=== PATIENT | female | born 1945 | race Caucasian/White ===

== ENCOUNTER 2016-08-14 12:14 | Inpatient (IN) | payer MEDICARE ==
[~2016-08-14] VITALS: Ht 160 cm; Wt 94.8 kg
[~2016-08-14 12:14] MED LIST: AMIT25TA PO; AMLO10TA4 PO; AMOX50TA PO; ATOR40TA PO; BUSP15TA PO; CARB1TAB2 PO; CARV12.5 PO; CHOL10003 PO; CLOP75TA PO; CYCL10TA2 PO; DOCU-27 PO; DOCU100C5 PO; DULO60CA6 PO; ESOM40CA PO; ESTR1TAB15 PO; FERR142T13 PO; FOLI1TAB16 PO; GLIM2TAB2 PO; GLYC1TAB PO; LEVE100020 PO; LEVO125T5 PO; LEVO150T5 PO; LIDO700A4 TP; LINA5TAB PO; LORA0.5T PO; LUBI24CA5 PO; MAGN400T3 PO; MELA3TAB PO; METF500T4 PO; MIRA50TA PO; MIRT30TA3 PO; NEBI5TAB2 PO; OMEG500C3 PO; OXYC10TA PO; OXYC20TA34 PO; PRIM50TA PO; TRAM50TA PO; VITA100C4 PO; ZOLP5TAB5 PO; [UNRECOGNIZED DRUG - CODE] PO
--- NOTE | 2016-08-14 12:44 | RAD ---
CT scan of the head without contrast 08/14/2016 Clinical History: Confusion with words finding difficulty. Code stroke. Technique: Unenhanced, contiguous, 5 mm axial sections were obtained through the head. One or more of the following individualized dose reduction techniques were utilized for this study: 1. Automated exposure control. 2. Adjustment of the mA and/or kV according to patient size. 3. Use of iterative reconstruction technique. Findings: Comparison study is dated 04/11/2016. There is generalized parenchymal atrophy. Small scattered areas of decreased attenuation are seen within the periventricular and subcortical white matter of both cerebral hemispheres consistent with areas of small vessel ischemic disease. No acute parenchymal abnormality is seen. No extra-axial fluid collection is noted. Impression: No acute intracranial abnormality is seen. This result was called to the emergency department at 1240 hours.
[2016-08-14 13:08] LABS: BASO % 0 % (0-3); EOS # 0.1 x10^3/uL (0.0-0.7); EOS % 2 % (0-3); HEMATOCRIT 35.1 % (36.0-47.0); HEMOGLOBIN 11.5 g/dL (12.0-15.5); LYMPH # 1.7 x10^3/uL (1.0-4.8); LYMPH % 29 % (24-48); MEAN CORPUSCULAR HEMOGLOBIN 32 pg (25-35); MEAN CORPUSCULAR HGB CONC 33 g/dL (31-37); MEAN CORPUSCULAR VOLUME 97 fL (79-100); MONO # 0.4 x10^3/uL (0.0-1.1); MONO % 6 % (0-9); NEUT # 3.8 x10^3uL (1.8-7.7); NEUT % 63 % (31-73); PLATELET COUNT 293 x10^3/uL (140-400); RED BLOOD COUNT 3.63 x10^6/uL (3.50-5.40); RED CELL DISTRIBUTION WIDTH 14.1 % (11.5-14.5)
[2016-08-14 13:27] LABS: CALCIUM 8.4 mg/dL (8.5-10.1); CREATININE 1.1 mg/dL (0.6-1.0); GFR 49.1; POTASSIUM 4.9 mmol/L (3.5-5.1)
--- NOTE | 2016-08-14 13:31 | RAD ---
Portable chest, 08/14/2016: History: Confusion, CVA symptoms Comparison is made to a study from 05/06/2015. A right-sided transvenous pacemaker is now in place with 2 leads extending in the right heart. The left ventricle is mildly prominent. The pulmonary vascularity is normal. No pulmonary infiltrates are seen. There is no evidence of pleural fluid. IMPRESSION: 1. A transvenous pacemaker is in place. 2. No acute cardiopulmonary abnormality is detected.
[2016-08-14] MEDS: IV NORMAL SALINE 1,000ML 1,000 ML IV SCH (13:44)
[2016-08-14] MEDS ORDERED: ONDANSETRON PF 4 MG/2 ML VIAL. IV PRN ×2 (13:45→17:30)
[2016-08-14] MEDS ORDERED: methylPREDNISolone SOD SUCC PF 125 MG/2 ML VIAL. IV ONE (14:15)
[2016-08-14] MEDS: IPRATRPIUM/ALBUTEROL 0.5/2.5MG 3 ML NEBU. NEB SCH ×2 (15:31→19:38)
--- NOTE | 2016-08-14 16:08 | ED.ADGEN ---
Past History Past Medical History: CAD, Diabetes, Hypertension, Hypothyroid, [place], Other Past Surgical History: Knee Replacement, Tonsillectomy Alcohol Use: None Drug Use: None Adult General HPI HPI Patient is a 71-year-old female brought to emergency department by her daughter after she noticed that her mother was slurring her words approximately 2 hours ago. Her last known normal was last night. Patient has had a history of CVA and heart attacks in the past. She also has a history of COPD. Daughter is concerned that her CO2 may be elevated due to the fact that her mom is been sleeping a significant amount over the last several days. Initially, the daughter thought that it may just be depression and morning related to the recent passing of her father. The patient herself does not really have any complaints other than his state that she is "sleepy" she denies any headache or chest pain. Review of Systems Review of Systems Constitutional: Denies fever or chills [] Eyes: Denies change in visual acuity, redness, or eye pain [] HENT: Denies nasal congestion or sore throat [] Respiratory: Denies cough or shortness of breath [] Cardiovascular: No additional information not addressed in HPI [] GI: Denies abdominal pain, nausea, vomiting, bloody stools or diarrhea [] : Denies dysuria or hematuria [] Musculoskeletal: Denies back pain or joint pain [] Integument: Denies rash or skin lesions [] Neurologic: Denies headache, focal weakness or sensory changes [] Endocrine: Denies polyuria or polydipsia [] Current Medications Current Medications Current Medications Medications (Trade) Dose Ordered Sig/Harmeet Start Time Stop Time Status Last Admin Dose Admin Methylprednisolone Sodium Succinate (Solu-Medrol 125mg Vial) 125 mg 1X ONCE 08/14/16 14:15 08/14/16 14:16 DC 08/14/16 14:12 125 MG Ondansetron HCl 4 mg 4 mg PRN Q4HRS PRN 08/14/16 13:45 08/15/16 13:44 Sodium Chloride (Iv Sodium Chloride 0.9% 1,000ml) 1,000 ml @ 100 mls/hr Q10H 08/14/16 13:44 08/15/16 13:43 08/14/16 13:44 100 MLS/HR Allergies Allergies Allergies Coded Allergies Type Severity Reaction Last Updated Verified Sulfa (Sulfonamide Antibiotics) Allergy Intermediate Unknown 10/28/14 Yes dexamethasone Allergy Intermediate eye irritaion and swelling 05/06/15 Yes neomycin Allergy Intermediate eye irritaion and swelling 05/06/15 Yes polymyxin B Allergy Intermediate eye irritaion and swelling 05/06/15 Yes Physical Exam Physical Exam Constitutional: Well developed, well nourished, no acute distress, non-toxic appearance. [] HENT: Normocephalic, atraumatic, bilateral external ears normal, oropharynx moist, no oral exudates, nose normal. [] Eyes: PERRLA, EOMI, conjunctiva normal, no discharge. [] Neck: Normal range of motion, no tenderness, supple, no stridor. [] Cardiovascular:Heart rate regular rhythm, no murmur [] Lungs & Thorax: Bilateral breath sounds clear to auscultation [] Abdomen: Bowel sounds normal, soft, no tenderness, no masses, no pulsatile masses. [] Skin: Warm, dry, no erythema, no rash. [] Back: No tenderness, no CVA tenderness. [] Extremities: No tenderness, no cyanosis, no clubbing, ROM intact, no edema. [] Neurologic: Alert and oriented X 3, normal motor function, normal sensory function, no focal deficits noted. [] Psychologic: Affect normal, judgement normal, mood normal. [] Current Patient Data Lab Results Laboratory Tests Test 08/14/16 12:51 08/14/16 13:11 White Blood Count 6.0x10^3/uL (4.0-11.0) Red Blood Count 3.63x10^6/uL (3.50-5.40) Hemoglobin 11.5g/dL (12.0-15.5) L Hematocrit 35.1% (36.0-47.0) L Mean Corpuscular Volume 97fL (79-100) Mean Corpuscular Hemoglobin 32pg (25-35) Mean Corpuscular Hemoglobin Concent 33g/dL (31-37) Red Cell Distribution Width 14.1% (11.5-14.5) Platelet Count 293x10^3/uL (140-400) Neutrophils (%) (Auto) 63% (31-73) Lymphocytes (%) (Auto) 29% (24-48) Monocytes (%) (Auto) 6% (0-9) Eosinophils (%) (Auto) 2% (0-3) Basophils (%) (Auto) 0% (0-3) Neutrophils # (Auto) 3.8x10^3uL (1.8-7.7) Lymphocytes # (Auto) 1.7x10^3/uL (1.0-4.8) Monocytes # (Auto) 0.4x10^3/uL (0.0-1.1) Eosinophils # (Auto) 0.1x10^3/uL (0.0-0.7) Basophils # (Auto) 0.0x10^3/uL (0.0-0.2) Prothrombin Time 9.3SEC (9.4-11.4) L Prothrombin Time INR 0.9 (0.9-1.1) PTT 24SEC (23-33) Sodium Level 139mmol/L (136-145) Potassium Level 4.9mmol/L (3.5-5.1) Chloride Level 103mmol/L (98-107) Carbon Dioxide Level 29mmol/L (21-32) Anion Gap 7 (6-14) Blood Urea Nitrogen 16mg/dL (7-20) Creatinine 1.1mg/dL (0.6-1.0) H Estimated GFR (Cockcroft-Gault) 49.1 Glucose Level 138mg/dL (70-99) H Calcium Level 8.4mg/dL (8.5-10.1) L Aspartate Amino Transferase (AST) 5U/L (15-37) L Alanine Aminotransferase (ALT) 16U/L (14-59) Alkaline Phosphatase 152U/L (46-116) H Troponin I Quantitative < 0.017ng/mL (0-0.055) SX-Bib-W-Type Natriuretic Peptide 223pg/mL (0-124) H POC Arterial pH 7.30 (7.35-7.45) L POC Arterial pCO2 51mmHg (35-45) H POC Arterial pO2 71mmHg (75-100) L Arterial Blood HCO3 25mmol/L (21-28) POC Arterial Blood O2 Sat 92% (95-99) L POC FiO2 21.0 EKG EKG EKG interpreted by me, normal sinus rhythm, 76 bpm, leftward axis, no ST segment elevation. [] Radiology/Procedures Radiology/Procedures CT scan of the head without contrast 08/14/2016 Clinical History: Confusion with words finding difficulty. Code stroke. Technique: Unenhanced, contiguous, 5 mm axial sections were obtained through the head. One or more of the following individualized dose reduction techniques were utilized for this study: 1. Automated exposure control. 2. Adjustment of the mA and/or kV according to patient size. 3. Use of iterative reconstruction technique. Findings: Comparison study is dated 04/11/2016. There is generalized parenchymal atrophy. Small scattered areas of decreased attenuation are seen within the periventricular and subcortical white matter of both cerebral hemispheres consistent with areas of small vessel ischemic disease. No acute parenchymal abnormality is seen. No extra-axial fluid collection is noted. Impression: No acute intracranial abnormality is seen. This result was called to the emergency department at 1240 hours. DICTATED AND SIGNED BY: GALE MAXWELL MD DATE: 08/14/16 1237 CC: SHYANNE CABRERA MD; DUY WISE MD ~[Portable chest, 08/14/2016: History: Confusion, CVA symptoms Comparison is made to a study from 05/06/2015. A right-sided transvenous pacemaker is now in place with 2 leads extending in the right heart. The left ventricle is mildly prominent. The pulmonary vascularity is normal. No pulmonary infiltrates are seen. There is no evidence of pleural fluid. IMPRESSION: 1. A transvenous pacemaker is in place. 2. No acute cardiopulmonary abnormality is detected. DICTATED AND SIGNED BY: KEILA HERNANDEZ MD DATE: 08/14/16 1328 CC: SHYANNE CABRERA MD; DUY WISE MD ~] Course & Med Decision Making Course & Med Decision Making Pertinent Labs and Imaging studies reviewed. (See chart for details) Patient did seem quite somnolent initially upon arrival. I did not notice any focal or lateralizing neural deficits. Her blood gas does indicate some acute CO retention. Consequent I, I did place her on BiPAP and this did seem to help with her ventilation as well as her mental status. We did also give her Solu- Medrol in order her regular pulmonary hygiene when she is admitted to the ICU. [] Final Impression Final Impression COPD exacerbation, mental status change. [] Problems: Dragon Disclaimer Dragon Disclaimer This electronic medical record was generated, in whole or in part, using a voice recognition dictation system. SHYANNE CABRERA MD Aug 14, 2016 16:08
[2016-08-14 16:09] VITALS: BP 136/69
[2016-08-14] MEDS ORDERED: ASPI81TA2 PO (17:12)
[2016-08-14] MEDS ORDERED: MIRA50TA PO (17:13)
[2016-08-14] MEDS ORDERED: DULO60CA6 PO (17:20)
[2016-08-14] MEDS ORDERED: DILT180C90 PO (17:21)
[2016-08-14] MEDS ORDERED: ZOLP5TAB5 PO (17:22)
[2016-08-14] MEDS ORDERED: DONE10TA34 PO (17:23)
[2016-08-14] MEDS ORDERED: ACETAMINOPHEN 325 MG TABLET PO PRN (17:30)
--- NOTE | 2016-08-14 18:01 | ACF ---
Admission Criteria Forms COPD Clinical Indications for Admission to Inpatient Care (Place 'X' for any and all applicable criteria): Admission is indicated for ANY ONE of the following (1)(2)(3): [ ]I. Acute exacerbation by high-risk comorbidity (e.g., pneumonia, dysrhythmia, heart failure, pleural effusion, pneumothorax) or severe underlying COPD (e.g., steroid dependent) [X]II. Inpatient admission required rather than observation care (see Chronic Obstructive Pulmonary Disease: Observation Care) because of ANY ONE of the following: [ ]a) New or pre-existing signs or symptoms of COPD (eg, dyspnea or Tachypnea at rest or with minimal activity) that persist despite outpatient and observation care treatment [ ]b) New-onset hypoxemia (room air SaO2 less than 90%, PO2 less than 60 mm Hg (8.0 kPa)) that persists despite outpatient and observation care treatment [ ]c) Worsening of pre-existing hypoxemia (eg, new or increased requirement for supplemental oxygen to maintain oxygenation at baseline level) that persists despite outpatient and observation care treatment, with oxygen treatment needs performable only in acute inpatient setting [X]d) Hypercarbia (PCO2 greater than 40 mm Hg (5.3 kPa))-induced respiratory acidosis (pH less than 7.35) that persists despite outpatient and observation care treatment [ ]e) Supplemental oxygen or respiratory treatments for over 24 hours that are performable only in acute inpatient setting [ ]f) Chest tube placement with active evacuation (e.g., suction, drainage) (5) [ ]g) Other condition, treatment or monitoring requiring inpatient admission [ ]III. Planned invasive surgical or diagnostic procedures requiring acute- care hospitalization [ ]IV. Acute respiratory failure (e.g., uncompensated hypercarbia, severe hypoxemia) [ ]V. Severe comorbid condition (e.g., severe steroid myopathy, acute vertebral fracture) that has acutely worsened pulmonary function [ ]. Confusion state, lethargy, obtundation, stupor or coma Extended stay beyond goal length of stay may be needed for (31)(32): [ ]a ) Respiratory Failure. [ ]b) Severe or persisting hypoxemia or hypercarbia [ ]c) Severe or persistent dyspnea [ ]d) Comorbidities (e.g. chronic heart failure, atrial fibrillation with rapid response, pneumonia) [ ]e) Malnutrition The original [facility] content created by [facility] has been revised. The portions of the content which have been revised are identified through the use of italic text or in bold, and [facility] has neither reviewed nor approved the modified material. All other unmodified content is copyright [facility]. Please see references footnoted in the original [facility] edition 2016 Admission Criteria Met?: Yes NILSA MCNEIL Aug 14, 2016 18:01
[2016-08-14 18:09] VITALS: BP 96/56
[2016-08-14 19:35] VITALS: BP 118/56
[2016-08-14 20:35] VITALS: BP 140/56
[2016-08-14] MEDS: LEVETIRACETAM 500 MG TABLET PO SCH (20:54)
[2016-08-14] MEDS: LORAZEPAM 0.5 MG TABLET PO SCH (20:54)
[2016-08-14] MEDS: OXYCODONE 20 MG PO SCH (20:54)
[2016-08-14] MEDS: MAGNESIUM OXIDE 400 MG TABLET PO SCH (20:55)
[2016-08-14] MEDS: busPIRone 15 MG TABLET. PO SCH (20:56)
[2016-08-14] MEDS: PRIMIDONE 50 MG TABLET PO SCH (20:56)
[2016-08-14] MEDS: CARBIDOPA/LEVODOPA 25/100MG TABLET PO SCH (20:56)
[2016-08-14] MEDS: methylPREDNISolone SOD SUCC PF 125 MG/2 ML VIAL. IV SCH (20:57)
[2016-08-14] MEDS ORDERED: MELATONIN 3 MG TABLET PO SCH (21:00)
[2016-08-14] MEDS ORDERED: MIRTAZAPINE 30 MG TABLET PO SCH (21:00)
[2016-08-14] MEDS ORDERED: ZOLPIDEM 5 MG TABLET. PO SCH (21:00)
[2016-08-14] MEDS ORDERED: CLOPIDOGREL BISULFATE 75 MG TABLET PO SCH (21:00)
[2016-08-14] MEDS ORDERED: AMOXAPINE PO SCH (21:00)
[2016-08-14] MEDS ORDERED: CYCLOBENZAPRINE 10 MG TABLET. PO SCH (21:00)
[2016-08-14 21:35] VITALS: BP 124/47
[2016-08-14 22:35] VITALS: BP 136/49
[2016-08-14 23:57] LABS: BILIRUBIN,URINE NEG (NEG); CLARITY,URINE CLEAR; COLOR,URINE YELLOW; GLUCOSE,URINE 100 mg/dL (NEG)
[2016-08-14 23:58] LABS: BACTERIA,URINE 0 /HPF (0-FEW); NITRITE,URINE NEG (NEG); RBC,URINE 0 /HPF (0-2); SQUAMOUS EPITHELIAL CELL,UR FEW /LPF; UROBILINOGEN,URINE 0.2 mg/dL (0.2 mg/dL); WBC,URINE OCC /HPF (0-4)
[2016-08-15 00:35] VITALS: BP 132/63
[2016-08-15 00:53] LABS: BGAS PH 7.35 (7.35-7.45)
[2016-08-15 02:39] VITALS: BP 149/64
[2016-08-15] MEDS: IV NORMAL SALINE 1,000ML 1,000 ML IV SCH ×2 (03:14→09:44)
[2016-08-15 04:35] VITALS: BP 140/60
[2016-08-15] MEDS: IPRATRPIUM/ALBUTEROL 0.5/2.5MG 3 ML NEBU. NEB SCH ×2 (05:10→09:31)
[2016-08-15 05:35] VITALS: BP 102/57
[2016-08-15 06:03] LABS: BASO % 0 % (0-3); EOS % 0 % (0-3); HEMOGLOBIN 12.3 g/dL (12.0-15.5); LYMPH # 0.8 x10^3/uL (1.0-4.8); LYMPH % 15 % (24-48); MEAN CORPUSCULAR HEMOGLOBIN 31 pg (25-35); MEAN CORPUSCULAR HGB CONC 32 g/dL (31-37); MEAN CORPUSCULAR VOLUME 97 fL (79-100); MONO # 0.1 x10^3/uL (0.0-1.1); MONO % 1 % (0-9); NEUT # 4.6 x10^3uL (1.8-7.7); NEUT % 84 % (31-73); PLATELET COUNT 280 x10^3/uL (140-400); RED BLOOD COUNT 3.92 x10^6/uL (3.50-5.40); RED CELL DISTRIBUTION WIDTH 13.8 % (11.5-14.5); WHITE BLOOD COUNT 5.5 x10^3/uL (4.0-11.0)
[2016-08-15 06:15] LABS: ALBUMIN 3.2 g/dL (3.4-5.0); ALBUMIN/GLOBULIN RATIO 0.8 (1.0-1.7); CALCIUM 8.7 mg/dL (8.5-10.1); GFR 54.8; POTASSIUM 4.7 mmol/L (3.5-5.1); TOTAL BILIRUBIN 0.2 mg/dL (0.2-1.0); TOTAL PROTEIN 7.3 g/dL (6.4-8.2)
[2016-08-15] MEDS ORDERED: LEVOTHYROXINE 150 MCG TABLET PO SCH (07:00)
[2016-08-15 07:30] VITALS: BP 168/75
[2016-08-15] MEDS ORDERED: PANTOPRAZOLE 40 MG TABLET. PO SCH (07:30)
[2016-08-15] MEDS ORDERED: METFORMIN 500 MG TABLET. PO SCH (08:00)
[2016-08-15] MEDS ORDERED: FERROUS SULFATE 325 MG TABLET PO SCH (08:00)
[2016-08-15] MEDS: methylPREDNISolone SOD SUCC PF 125 MG/2 ML VIAL. IV SCH (08:13)
[2016-08-15] MEDS: LEVETIRACETAM 500 MG TABLET PO SCH (08:14)
[2016-08-15] MEDS: CARBIDOPA/LEVODOPA 25/100MG TABLET PO SCH ×2 (08:14→12:50)
[2016-08-15] MEDS: PRIMIDONE 50 MG TABLET PO SCH ×2 (08:15→12:51)
[2016-08-15] MEDS: MAGNESIUM OXIDE 400 MG TABLET PO SCH (08:15)
[2016-08-15] MEDS: busPIRone 15 MG TABLET. PO SCH (08:15)
[2016-08-15] MEDS: OXYCODONE 20 MG PO SCH ×2 (08:15→12:51)
[2016-08-15] MEDS: LORAZEPAM 0.5 MG TABLET PO SCH (08:17)
[2016-08-15] MEDS ORDERED: LIDOCAINE (700MG/PATCH) PATCH. TP SCH (09:00)
[2016-08-15] MEDS ORDERED: ASPIRIN 81 MG TAB.CHEW PO SCH (09:00)
[2016-08-15] MEDS ORDERED: CARVEDILOL 12.5 MG TABLET PO SCH (09:00)
[2016-08-15] MEDS ORDERED: DULOXETINE HCL 60 MG CAPSULE.DR. PO SCH (09:00)
[2016-08-15] MEDS ORDERED: DILTIAZEM HCL 180 MG CAP.ER.24H PO SCH (09:00)
[2016-08-15] MEDS ORDERED: MIRABEGRON 25 MG TAB.ER.24H PO SCH (09:00)
[2016-08-15] MEDS ORDERED: CYCLOBENZAPRINE 10 MG TABLET. PO SCH (09:00)
[2016-08-15] MEDS ORDERED: DONEPEZIL HCL 10 MG TABLET PO SCH (09:00)
--- NOTE | 2016-08-15 09:18 | PDOC2 ---
CONSULT Date of Admission DATE: 08/15/16 TIME: 09:13 Problem List Problems Medical Problems: (1) COPD exacerbation Status: Acute (2) Mental status change Status: Acute History of Present Illness Ms Verdugo is a 71 year old female with history of CAD with prior stenting to the PLB branch, mild systolic dysfunction and moderate mitral regurgitation, COPD, diabetes mellitus and CVA. She has additional history of factor 5 leiden deficiency. She underwent a pacemaker placement in May of this year. She was brought the the ED yesterday because her daughter noticed that she had been sleeping significantly more than normal. She was apparently unable to go to the restroom alone, was unable to articulate her thoughts and speech was slurred and was unable to perform simple tasks such as buttoning her pants or putting on her shoes alone. She was found to be in acute hypercapnic and hypoxic respiratory failure and placed on Bipap. This am she is alert and aware though the daughter reports she continues to be more sleepy than normal. She reports occasional chest pressure that is mid sternal to left of the sternum and intermittent. She reports no radiation or associated symptoms. The pain may occur at rest but she also reports occurrences with exertion when she is walking with PT. She is asking about an RX for nitro. She has reported diagnosed INDER but not on CPAP. Her daughter reports she stops breathing at times and other times has a sonorous respiration when sleeping. She has known atrial fibrillation but this has reportedly been significantly improved with the addition of cardizem during her last admission. She reports occasional PND but not recently. She denies syncope. Past Medical History Cardiac cath 05/2015 Coronaries: The left main is normal. The LAD has mild diffuse plaquing in the 20-40% range. The circumflex is a nondominant vessel that is normal. The RCA is normal but the posterolateral branch is 100% occluded at the ostium. The PDA is normal. s/p PCI/YANNICK to PLB Echo 04/15/16 Left ventricle systolic function is low normal. The Ejection Fraction is 45%. Tissue Doppler imaging reveals mild left ventricular diastolic dysfunction. Transmitral Doppler flow pattern is Grade I-abnormal relaxation pattern. There is borderline concentric left ventricular hypertrophy. The left atrium size is normal. The right atrium size is normal. Doppler and Color Flow revealed mild aortic regurgitation. The aortic valve is calcified but opens well. The aortic valve is trileaflet. Doppler and Color Flow revealed mild to moderate mitral regurgitation. Doppler and Color Flow revealed mild tricuspid regurgitation. The PA pressure was estimated at 45 mmHg. The pulmonic valve is not well visualized. There is no evidence of significant pericardial effusion. CAD with NC x 3, CVA, diabetes mellitus, hypertension, hyperlipidemia, and factor V Leiden, history of GI bleeding, GERD, atrial fibrillation, systolic dysfunction, mitral regurgitation, COPD, insomnia, depression, parkinsons Past Surgical History several knee and back surgeries, bowel resection, cataracts, hysterectomy, shoulder surgery Family History No known heart history. Her daughter has been diagnosed with factor V Leiden as well. Mother, grandmother had blood clots. Social History Lives alone, in July. Quit smoking 23 years ago. No ETOH , no illicit drugs. Current Medications Current Medications Ondansetron HCl 4 mg 4 mg PRN Q4HRS PRN IV NAUSEA/VOMITING; Start 08/14/16 at 13:45; Stop 08/14/16 at 18:08; Status DC Sodium Chloride (Iv Sodium Chloride 0.9% 1,000ml) 1,000 ml @ 100 mls/hr Q10H IV Last administered on 08/15/16 03:14; Start 08/14/16 at 13:44; Stop at 13:43 Albuterol/ Ipratropium (Duoneb) 3 ml RTQID NEB Last administered on 08/15/16 05:10; Start 08/14/16 at 16:00; Stop 08/15/16 at 15:59 Methylprednisolone Sodium Succinate (Solu-Medrol 125mg Vial) 125 mg 1X ONCE IV Last administered on 08/14/16 14:12; Start 08/14/16 at 14:15; Stop 08/14/16 at 14:16; Status DC Acetaminophen (Tylenol) 650 mg PRN Q6HRS PRN PO Headaches, Temp > 101.5F; Start 08/14/16 at 17:30 Ondansetron HCl (Zofran) 4 mg PRN Q8HRS PRN IV NAUSEA/VOMITING; Start 08/14/16 at 17:30 Methylprednisolone Sodium Succinate (Solu-Medrol 125mg Vial) 62.5 mg Q12HR IV Last administered on 08/15/16 08:13; Start 08/14/16 at 21:00 Aspirin (Children'S Aspirin) 81 mg DAILY PO Last administered on 08/15/16 08: 16; Start 08/15/16 at 09:00 Buspirone HCl (Buspar) 15 mg BID PO Last administered on 08/15/16 08:15; Start 08/14/16 at 21:00 Carbidopa/Levodopa (Sinemet 25/100) 1 tab TID PO Last administered on 08:14; Start 08/14/16 at 21:00 Carvedilol (Coreg) 12.5 mg BID94 PO Last administered on 08/15/16 08:17; Start 08/15/16 at 09:00 Clopidogrel Bisulfate (Plavix) 75 mg HS PO Last administered on 08/14/16 20:55 ; Start 08/14/16 at 21:00 Cyclobenzaprine HCl (Flexeril) 10 mg HS PO Last administered on 08/14/16 20:54 ; Start 08/14/16 at 21:00 Cyclobenzaprine HCl (Flexeril) 20 mg DAILY PO Last administered on 08/15/16 08 :17; Start 08/15/16 at 09:00 Diltiazem HCl (Cardizem 24hr Cd) 180 mg DAILY PO Last administered on 08:16; Start 08/15/16 at 09:00 Donepezil HCl (Aricept) 10 mg DAILY PO Last administered on 08/15/16 08:16; Start 08/15/16 at 09:00 Duloxetine HCl (Cymbalta) 60 mg DAILY PO Last administered on 08/15/16 08:15; Start 08/15/16 at 09:00 Levothyroxine Sodium (Synthroid) 150 mcg DAILY07 PO Last administered on 06:16; Start 08/15/16 at 07:00 Lidocaine (Lidoderm) 1 patch DAILY TP Last administered on 08/15/16 08:15; Start 08/15/16 at 09:00 Lorazepam (Ativan) 0.5 mg BID PO Last administered on 08/15/16 08:17; Start at 21:00 Magnesium Oxide (Magnesium Oxide) 400 mg BID PO Last administered on 08/15/16 08:15; Start 08/14/16 at 21:00 Melatonin 12 mg HS PO Last administered on 08/14/16 20:54; Start 08/14/16 at 21:00 Metformin HCl (Glucophage) 500 mg BIDWMEALS PO Last administered on 08/15/16 08:16; Start 08/15/16 at 08:00 Mirtazapine (Remeron) 30 mg QHS PO Last administered on 08/14/16 20:56; Start 08/14/16 at 21:00 Primidone (Mysoline) 100 mg TID PO Last administered on 08/15/16 08:15; Start 08/14/16 at 21:00 Zolpidem Tartrate (Ambien) 5 mg QHS PO ; Start 08/14/16 at 21:00 Non-Formulary Medication 200 mg QHS PO DEPRESSION; Start 08/14/16 at 21:00; Status UNV Ferrous Sulfate (Feosol) 325 mg DAILYWBKFT PO Last administered on 08/15/16 08 :17; Start 08/15/16 at 08:00 Levetiracetam (Keppra) 1,000 mg BID PO Last administered on 08/15/16 08:14; Start 08/14/16 at 21:00 Non-Formulary Medication 50 mg DAILY PO ; Start 08/15/16 at 09:00; Status UNV Oxycodone HCl (Oxycontin) 20 mg TID PO Last administered on 08/15/16 08:15; Start 08/14/16 at 21:00 Pantoprazole Sodium (Protonix) 40 mg DAILYAC PO Last administered on 08/15/16 08:16; Start 08/15/16 at 07:30 Active Scripts Active Reported Aricept (Donepezil Hcl) 10 Mg Tablet 10 Mg PO DAILY Zolpidem Tartrate 5 Mg Tablet 5 Mg PO QHS PRN Diltiazem 24Hr Cd (Diltiazem HCl) 180 Mg Cap.er.24h 180 Mg PO DAILY Cymbalta (Duloxetine Hcl) 60 Mg Capsule.dr 60 Mg PO DAILY Myrbetriq (Mirabegron) 50 Mg Tab.er.24h 50 Mg PO DAILY Aspirin 81 Mg Tab.chew 81 Mg PO DAILY Oxycodone Hcl 10 Mg Tablet 2 Tab PO TID LAST DOSE GIVEN: DATE: TODAY TIME: AM NEXT DOSE DUE: DATE: TODAY TIME: AFTERNOON Sinemet 25-100 Mg Tablet (Carbidopa/Levodopa) 1 Each Tablet 1 Tab PO TID LAST DOSE GIVEN: DATE: TIME: AM NEXT DOSE DUE: DATE: TIME: AFTERNOON Zolpidem Tartrate 5 Mg Tablet 1 Tab PO QHS LAST DOSE GIVEN: DATE: TIME: AT BEDTIME NEXT DOSE DUE: DATE: TIME: AT BEDTIME Cyclobenzaprine Hcl 10 Mg Tablet 1 Tab PO HS LAST DOSE GIVEN: DATE: TER TIME: AT BEDTIME NEXT DOSE DUE: DATE: TODAY TIME: AT BEDTIME Magnesium Oxide 400 Mg Tablet 1 Tab PO BID LAST DOSE GIVEN: DATE: TIME: AM NEXT DOSE DUE: DATE: TIME: PM Slow Fe (Ferrous Sulfate) 142 Mg Tablet.er 142 Mg PO DAILY LAST DOSE GIVEN: DATE: TIME: AM NEXT DOSE DUE: DATE: TIME: AM Vitamin E 100 Unit Capsule 100 Unit PO DAILY LAST DOSE GIVEN: DATE: TIME: AM NEXT DOSE DUE: DATE: TIME: AM Vitamin D3 (Cholecalciferol (Vitamin D3)) 1,000 Unit Tablet 2 Tab PO DAILY LAST DOSE GIVEN: DATE: TIME: AM NEXT DOSE DUE: DATE: TIME: AM Coreg (Carvedilol) 12.5 Mg Tablet 1 Tab PO BID94 LAST DOSE GIVEN: DATE: TIME: AM NEXT DOSE DUE: DATE: TIME: PM Melatonin 3 Mg Tablet 12 Mg PO DAILY LAST DOSE GIVEN: DATE: TIME: AT BEDTIME NEXT DOSE DUE: DATE: TIME: AT BEDTIME Levothyroxine Sodium 150 Mcg Tablet 1 Tab PO DAILY LAST DOSE GIVEN: DATE: TODAY TIME: AM NEXT DOSE DUE: DATE: ORR TIME: AM Nexium Capsule (Esomeprazole Magnesium) 40 Mg Capsule.dr 1 Cap PO DAILY LAST DOSE GIVEN: DATE: TIME: AM NEXT DOSE DUE: DATE: TIME: AM Clopidogrel (Clopidogrel Bisulfate) 75 Mg Tablet 1 Tab PO HS LAST DOSE GIVEN: DATE: TIME: AM NEXT DOSE DUE: DATE: TIME: AM Mirtazapine 30 Mg Tablet 1 Tab PO QHS LAST DOSE GIVEN: DATE: TIME: AT BEDTIME NEXT DOSE DUE: DATE: TODAY TIME: AT BEDTIME Keppra (Levetiracetam) 1,000 Mg Tablet 1 Tab PO BID LAST DOSE GIVEN: DATE: TIME: AM NEXT DOSE DUE: DATE: TIME: PM Amoxapine 150 Mg Tablet 200 Mg PO QHS LAST DOSE GIVEN: DATE: YESTERDAY TIME: AT BEDTIME NEXT DOSE DUE: DATE: TIME: AT BEDTIME Lidoderm (Lidocaine) 700 Mg Adh..patch 1 Patch TP DAILY LAST DOSE GIVEN: DATE: YESTER TIME: AT BEDTIME NEXT DOSE DUE: DATE: TIME: AT BEDTIME Colace (Docusate Sodium) 100 Mg Capsule 1 Cap PO BID LAST DOSE GIVEN: DATE: TIME: AM NEXT DOSE DUE: DATE: TIME: PM Lorazepam 0.5 Mg Tablet 0.5 Mg PO BID LAST DOSE GIVEN: DATE: TIME: AM NEXT DOSE DUE: DATE: TIME: AFTERNOON Buspirone Hcl 15 Mg Tablet 15 Mg PO BID LAST DOSE GIVEN: DATE: TIME: AM NEXT DOSE DUE: DATE: TIME: PM Primidone 50 Mg Tablet 100 Mg PO TID LAST DOSE GIVEN: DATE: TIME: AM NEXT DOSE DUE: DATE: TIME: AFTERNOON Cyclobenzaprine Hcl 10 Mg Tablet 20 Mg PO DAILY LAST DOSE GIVEN: DATE: TIME: AM NEXT DOSE DUE: DATE: TOMORR TIME: AM Metformin Hcl 500 Mg Tablet 500 Mg PO BIDWMEALS LAST DOSE GIVEN: DATE: TIME: AT BREAKFAST NEXT DOSE DUE: DATE: TIME: AT DINNER IF BLOOD SUGAR >110 Allergies: Coded Allergies: Sulfa (Sulfonamide Antibiotics) (Verified Allergy, Intermediate, Unknown, 10/28/14) dexamethasone (Verified Allergy, Intermediate, eye irritaion and swelling , 05/06/15) neomycin (Verified Allergy, Intermediate, eye irritaion and swelling, ) polymyxin B (Verified Allergy, Intermediate, eye irritaion and swelling, 05/06/15) Review of System as per HPI General: Alert, Oriented X3, Cooperative, No acute distress HEENT: Atraumatic, EOMI Lungs: Other (basilar crackles) Heart: Regular rate, Normal S1, Normal S2, Other (no gallops, clicks or rubs. soft systolic murmur) Extremities: No cyanosis, No edema, Other (palpable distal pulses) Neuro: Other (tremor) Psych/Mental Status: Mental status NL, Mood NL VITALS Vital Signs Date Time p Pulse Resp B/P Pulse Ox O2 Delivery O2 Flow Rate FiO2 08/15/16 08:42 Room Air 08/15/16 08:17 80 102/57 08/15/16 08:15 100 2.0 08/15/16 07:30 20 08/15/16 05:12 97.5 Labs Laboratory Tests Test 08/14/16 12:51 08/14/16 13:11 08/14/16 15:34 08/14/16 18:50 White Blood Count 6.0x10^3/uL (4.0-11.0) Red Blood Count 3.63x10^6/uL (3.50-5.40) Hemoglobin 11.5g/dL (12.0-15.5) Hematocrit 35.1% (36.0-47.0) Mean Corpuscular Volume 97fL (79-100) Mean Corpuscular Hemoglobin 32pg (25-35) Mean Corpuscular Hemoglobin Concent 33g/dL (31-37) Red Cell Distribution Width 14.1% (11.5-14.5) Platelet Count 293x10^3/uL (140-400) Neutrophils (%) (Auto) 63% (31-73) Lymphocytes (%) (Auto) 29% (24-48) Monocytes (%) (Auto) 6% (0-9) Eosinophils (%) (Auto) 2% (0-3) Basophils (%) (Auto) 0% (0-3) Neutrophils # (Auto) 3.8x10^3uL (1.8-7.7) Lymphocytes # (Auto) 1.7x10^3/uL (1.0-4.8) Monocytes # (Auto) 0.4x10^3/uL (0.0-1.1) Eosinophils # (Auto) 0.1x10^3/uL (0.0-0.7) Basophils # (Auto) 0.0x10^3/uL (0.0-0.2) Prothrombin Time 9.3SEC (9.4-11.4) Prothromb Time International Ratio 0.9 (0.9-1.1) Activated Partial Thromboplast Time 24SEC (23-33) Sodium Level 139mmol/L (136-145) Potassium Level 4.9mmol/L (3.5-5.1) Chloride Level 103mmol/L (98-107) Carbon Dioxide Level 29mmol/L (21-32) Anion Gap 7 (6-14) Blood Urea Nitrogen 16mg/dL (7-20) Creatinine 1.1mg/dL (0.6-1.0) Estimated GFR (Cockcroft-Gault) 49.1 Glucose Level 138mg/dL (70-99) Calcium Level 8.4mg/dL (8.5-10.1) Aspartate Amino Transf (AST/SGOT) 5U/L (15-37) Alanine Aminotransferase (ALT/SGPT) 16U/L (14-59) Alkaline Phosphatase 152U/L (46-116) Troponin I Quantitative < 0.017ng/mL (0-0.055) < 0.017ng/mL (0-0.055) NT-Gcr-T-Type Natriuretic Peptide 223pg/mL (0-124) Bedside Arterial pH 7.30 (7.35-7.45) Bedside Arterial pCO2 51mmHg (35-45) Bedside Arterial pO2 71mmHg (75-100) Arterial Blood HCO3 25mmol/L (21-28) Bedside Arterial Blood O2 Sat 92% (95-99) Bedside FiO2 21.0 Nasal Screen MRSA (PCR) Negative (Negative) Test 08/14/16 21:07 08/14/16 23:20 08/15/16 00:46 08/15/16 05:35 Glucose (Fingerstick) 200mg/dL (70-99) Urine Collection Type Unknown Urine Color Yellow Urine Clarity Clear Urine pH 5.5 Urine Specific [place] 1.015 Urine Protein 30 mg/dl (NEG-TRACE) Urine Glucose (UA) 100mg/dL (NEG) Urine Ketones (Stick) Negmg/dL (NEG) Urine Blood Trace (NEG) Urine Nitrite Neg (NEG) Urine Bilirubin Neg (NEG) Urine Urobilinogen Dipstick 0.2mg/dL (0.2 mg/dL) Urine Leukocyte Esterase Neg (NEG) Urine RBC 0/HPF (0-2) Urine WBC Occ/HPF (0-4) Urine Squamous Epithelial Cells Few/LPF Urine Bacteria 0/HPF (0-FEW) Blood Gas pH 7.35 (7.35-7.45) Blood Gas PCO2 45mmHg (35-45) Blood Gas PO2 94mmHg (71-100) Blood Gas HCO3 25mmol/L (22-26) Arterial Bld O2 Saturation (Calc) 97% (92-99) FiO2 28% White Blood Count 5.5x10^3/uL (4.0-11.0) Red Blood Count 3.92x10^6/uL (3.50-5.40) Hemoglobin 12.3g/dL (12.0-15.5) Hematocrit 38.0% (36.0-47.0) Mean Corpuscular Volume 97fL (79-100) Mean Corpuscular Hemoglobin 31pg (25-35) Mean Corpuscular Hemoglobin Concent 32g/dL (31-37) Red Cell Distribution Width 13.8% (11.5-14.5) Platelet Count 280x10^3/uL (140-400) Neutrophils (%) (Auto) 84% (31-73) Lymphocytes (%) (Auto) 15% (24-48) Monocytes (%) (Auto) 1% (0-9) Eosinophils (%) (Auto) 0% (0-3) Basophils (%) (Auto) 0% (0-3) Neutrophils # (Auto) 4.6x10^3uL (1.8-7.7) Lymphocytes # (Auto) 0.8x10^3/uL (1.0-4.8) Monocytes # (Auto) 0.1x10^3/uL (0.0-1.1) Eosinophils # (Auto) 0.0x10^3/uL (0.0-0.7) Basophils # (Auto) 0.0x10^3/uL (0.0-0.2) Sodium Level 139mmol/L (136-145) Potassium Level 4.7mmol/L (3.5-5.1) Chloride Level 101mmol/L (98-107) Carbon Dioxide Level 28mmol/L (21-32) Anion Gap 10 (6-14) Blood Urea Nitrogen 18mg/dL (7-20) Creatinine 1.0mg/dL (0.6-1.0) Estimated GFR (Cockcroft-Gault) 54.8 BUN/Creatinine Ratio 18 (6-20) Glucose Level 158mg/dL (70-99) Calcium Level 8.7mg/dL (8.5-10.1) Total Bilirubin 0.2mg/dL (0.2-1.0) Aspartate Amino Transf (AST/SGOT) 23U/L (15-37) Alanine Aminotransferase (ALT/SGPT) 21U/L (14-59) Alkaline Phosphatase 141U/L (46-116) Total Protein 7.3g/dL (6.4-8.2) Albumin 3.2g/dL (3.4-5.0) Albumin/Globulin Ratio 0.8 (1.0-1.7) Images CXR - IMPRESSION: 1. A transvenous pacemaker is in place. 2. No acute cardiopulmonary abnormality is detected. Assessment/Plan 1. acute respiratory failure, hypercapnic and hypoxic- likely multifactorial - ABGs improved after a couple hours of Bipap, currently on room air. 2. CAD with PCI/YANNICK to PLB in May 2015 - with intermittent chest pain would suggest MPI to eval for progression of known moderate disease and increase in antianginals. 3. Cardiomyopathy with EF 45% and moderate MR - suggest add ACEI for afterload reduction. 4. paroxysmal atrial fibrillation - currently in sinus. on asa and plavix. device check reveals 0% atrial burden. Likely poor candidate for full anticoagulation due to history of GIB and fall risk. 5. SSS s/p PPM - device check reveals normal impedances, thresholds and sensing. no high rates or mode switching. 95% battery. 6. INDER - suggest repeat nocturnal oximetry in hospital with home sleep study to follow up as significant sleep apnea could be contributing to respiratory and cognitive issues. Planning transfer to [facility] for pulmonary and neuro evals. Will follow up with her normal dairy management specialist, Dr Roberts while there. Problems: LAMBERT MCCLOUD DIRECTOR [employer] Aug 15, 2016 09:18
[2016-08-15 09:23] VITALS: BP 175/63
--- NOTE | 2016-08-15 10:44 | EKG ---
[address] [address] Test Date: 2016-08-14 Test Time: 12:46:09 Pat Name: SALVATORE OLIVAREZ Department: Room: ICU01 1 Gender: F Resort Host: SALIMA : 1945 Requested By: SHYANNE CABRERA Order Number: [id number] Reading MD: Jose Fontanez Measurements Intervals [place] Rate: 76 P: 39 IA: 176 QRS: -27 QRSD: 80 T: 4 QT: 386 QTc: 439 Interpretive Statements SINUS ARRHYTHMIA LEFTWARD AXIS QRS(T) CONTOUR ABNORMALITY CONSISTENT WITH INFERIOR INFARCT Electronically Signed On 08-28-2016 14:37:45 CDT by Jose Fontanez
[2016-08-15] MEDS ORDERED: ROPI1TAB PO (12:38)
[2016-08-15] MEDS ORDERED: rOPINIRole 1 MG TABLET. PO SCH (14:00)
--- NOTE | 2016-08-23 18:27 | SSS ---
ADMIT DATE: 08/15/2016 HISTORY OF PRESENT ILLNESS: The patient is a 71-year-old female who came in through the Emergency Room with slurred speech approximately 2 hours prior to being seen in the Emergency Room. It was thought the patient might be having a TIA or stroke in evolution. The patient also had CO2 elevation at night and patient was being monitored in the Emergency Room. She says she has been feeling sleepy. Denies any headaches or chest pain. The patient was admitted to the hospital for further evaluation for possible rule out stroke versus TIA versus also exacerbation of COPD. PAST MEDICAL HISTORY: Of course, has long history of COPD as well as tremors, cataracts, tonsillectomy, spinal injury, chronic back pain, chronic atrial fibrillation, heart attack, pacemaker placement, COPD, bowel surgery, removed in 2013, gastric, esophageal reflux, hysterectomy, , incontinence, joint replacement, diabetes, hypothyroidism, depression, history of smoking, history of also factor V Leiden deficiency. FAMILY HISTORY: Positive for cancer in both mother and father. ALLERGIES: The patient has allergies to SULFA, DEXAMETHASONE, NEOMYCIN, POLYMYXIN B. MEDICATIONS: Include 200 at bedtime, aspirin 81, buspirone 15 mg b.i.d., carbidopa/levodopa 25/100 t.i.d., carvedilol 12.5 b.i.d., Plavix 75 mg a day, vitamin D, cyclobenzaprine 20 mg daily, diltiazem ER 180 mg daily, Aricept 10 mg daily, docusate sodium, Nexium 40 daily, ferrous sulfate, Keppra 1000 mg b.i.d., levothyroxine 150 mcg daily, lidocaine, lorazepam, magnesium oxide, melatonin, metformin 500 mg, 50 mg a day, Remeron 30 mg at bedtime, oxycodone 10 mg a day, primidone 50 mg a day, ReQuip 1 mg t.i.d., vitamin E, Ambien 5 mg at bedtime, Zyloprim. SOCIAL HISTORY: She does have a smoking history in the past. Denies alcohol or drug use. The patient is otherwise doing reasonably well. REVIEW OF SYSTEMS: Positive for some slurred speech and trouble breathing. PHYSICAL EXAMINATION: GENERAL: This is a pleasant white female, denies chest pain. VITAL SIGNS: Blood pressure 175/60, respiratory rate 12, pulse 94, temperature 98.2, oxygen saturation 98%. HEENT: The patient's head was atraumatic, normocephalic. Eyes: PERRLA without jaundice. Mouth and throat were normal. NECK: Supple. LUNGS: Clear. CARDIOVASCULAR: Irregularly irregular rhythm. ABDOMEN: Soft, nontender. EXTREMITIES: No clubbing, cyanosis, or edema. NEUROLOGIC: The patient was alert, little bit groggy, but other than that basically unremarkable. IMAGING: CT scan head as well as chest x-ray. IMPRESSION: TIA versus stroke in evolution, patient also with exacerbation of COPD. Because of her elevation in her CO2, the patient was transferred via family's request down to [place] for Pulmonology consultation and neurological consultation at that [facility]. Otherwise, the patient was stable by the time of her discharge, there were no complications, the patient resolved her TIA-like symptoms. IMPRESSION: Therefore, transient ischemic attack versus stroke in evolution, exacerbation of COPD, acute respiratory failure with hypercapnia, type 2 diabetes, history factor V Leiden deficiency. PLAN: The patient will be discharged and transferred immediately to [facility] to the care Of hospitalist at that [facility]. DUY WISE MD DR: GERSON/richard JOB#: [id number] / [id number]
== END 2016-08-15 13:05 | disposition short-term general hospital (02) | DRG 64 ==
LOC: ER 12:14 → ICU 14:35
PROVIDERS: ADMIT Family Medicine; ATTEND Family Medicine
PROC: 5A09357 Assistance with Respiratory Ventilation, Less than 24 Consecutive Hours, Continuous Positive Airway Pressure (ICD-10-PCS; principal; 2016-08-14)
DX: I63.9 Cerebral infarction, unspecified (principal); J96.01 Acute respiratory failure with hypoxia; J96.02 Acute respiratory failure with hypercapnia; J44.1 Chronic obstructive pulmonary disease with (acute) exacerbation; I42.9 Cardiomyopathy, unspecified; G45.9 Transient cerebral ischemic attack, unspecified; D68.2 Hereditary deficiency of other clotting factors; E78.5 Hyperlipidemia, unspecified; E11.9 Type 2 diabetes mellitus without complications; G47.33 Obstructive sleep apnea (adult) (pediatric); I07.1 Rheumatic tricuspid insufficiency; I10 Essential (primary) hypertension; I25.10 Atherosclerotic heart disease of native coronary artery without angina pectoris; E03.9 Hypothyroidism, unspecified; G20 Parkinson's disease; I34.0 Nonrheumatic mitral (valve) insufficiency; Z96.659 Presence of unspecified artificial knee joint; F32.9 Major depressive disorder, single episode, unspecified; G47.00 Insomnia, unspecified; I48.0 Paroxysmal atrial fibrillation; I49.5 Sick sinus syndrome; K21.9 Gastro-esophageal reflux disease without esophagitis; Z86.73 Personal history of transient ischemic attack (TIA), and cerebral infarction without residual deficits; Z91.81 History of falling; I25.2 Old myocardial infarction; Z87.891 Personal history of nicotine dependence; Z95.0 Presence of cardiac pacemaker; Z95.5 Presence of coronary angioplasty implant and graft; Z88.1 Allergy status to other antibiotic agents; Z88.2 Allergy status to sulfonamides; Z88.8 Allergy status to other drugs, medicaments and biological substances
CPT/HCPCS: 36415; 36600; 70450; 71010; 80048; 80053; 81001; 82803; 82947; 83880; 84075; 84450; 84460; 84484; 85027; 85610; 85730; 87641; 93005; 94640; 94660; J2930; J7620; 99285-25; J7030

== ENCOUNTER → 2017-04-16 | Outpatient (CLI) | payer MEDICARE ==
[~2017-04-16] MED LIST changes: +ASPI-630 PO; +CYCL-331 PO; -CYCL10TA2 PO; +DILT180C79 PO; +DOCU-109 PO; -DOCU-27 PO; +DOCU100C28 PO; -DOCU100C5 PO; +DONE10TA61 PO; +IOHEXOL 240 MG/ML 50ML VIAL. ONE; +IOHEXOL 300 MG/ML 75 ML VIAL. IV ONE; -LINA5TAB PO; +LINA5TAB4 PO; -LUBI24CA5 PO; +LUBI24CA7 PO; -MELA3TAB PO; +MELA3TAB2 PO; +ROPI1TAB PO
[2017-04-16 13:55] LABS: BASO % 0 % (0-3); EOS # 0.1 x10^3/uL (0.0-0.7); EOS % 1 % (0-3); HEMATOCRIT 38.5 % (36.0-47.0); LYMPH # 1.9 x10^3/uL (1.0-4.8); LYMPH % 32 % (24-48); MEAN CORPUSCULAR HEMOGLOBIN 32 pg (25-35); MEAN CORPUSCULAR HGB CONC 34 g/dL (31-37); MEAN CORPUSCULAR VOLUME 96 fL (79-100); MONO # 0.3 x10^3/uL (0.0-1.1); MONO % 5 % (0-9); NEUT # 3.6 x10^3uL (1.8-7.7); NEUT % 61 % (31-73); PLATELET COUNT 338 x10^3/uL (140-400); RED BLOOD COUNT 4.02 x10^6/uL (3.50-5.40); RED CELL DISTRIBUTION WIDTH 13.3 % (11.5-14.5); WHITE BLOOD COUNT 5.9 x10^3/uL (4.0-11.0)
[2017-04-16 14:01] LABS: ALBUMIN 3.4 g/dL (3.4-5.0); ALBUMIN/GLOBULIN RATIO 0.9 (1.0-1.7); CREATININE 1.1 mg/dL (0.6-1.0); POTASSIUM 4.8 mmol/L (3.5-5.1); TOTAL BILIRUBIN 0.3 mg/dL (0.2-1.0); TOTAL PROTEIN 7.3 g/dL (6.4-8.2)
--- NOTE | 2017-04-16 15:52 | RAD ---
Indication: Left lower quadrant pain and nausea for 4 days. Technique: Axial images and coronal and sagittal reformatted images are provided. 75 mL of intravenous Omnipaque 300 along with oral contrast was administered. Comparison is from October 27, 2012. One or more of the following individualized dose reduction techniques were utilized for this examination: 1. Automated exposure control 2. Adjustment of the mA and/or kV according to patient size 3. Use of iterative reconstruction technique Findings: The lung bases are clear. There is no pleural effusion. The heart is not enlarged. Pacemaker leads are noted. There is mild fatty infiltration of the liver. Gallbladder is unremarkable. Spleen is not enlarged. Pancreas and adrenals are unremarkable. There are areas of cortical scarring in both kidneys. There is atheromatous disease in the abdominal aorta without aneurysm. There is probably a small hiatal hernia. There is no dilated small bowel loop or air-fluid level. There are diverticula in the colon. There are no findings of diverticulitis. Appendix is not confidently visualized, there are no secondary findings of an appendicitis. Bladder is unremarkable. Uterus is presumed absent. There is no free pelvic fluid. There are degenerative changes in the spine with slight anterolisthesis at L4-L5. Impression: 1. No acute abdominal findings. 2. Diverticulosis without findings of diverticulitis. 3. Fatty infiltration of the liver. 4. Areas of cortical scarring in each kidney. 5. There is probably a small hiatal hernia.
== END | disposition home or self-care (01) ==
LOC: CT 13:21
PROVIDERS: ATTEND Physician Assistant
DX: K76.0 Fatty (change of) liver, not elsewhere classified (principal); K57.30 Diverticulosis of large intestine without perforation or abscess without bleeding; N28.89 Other specified disorders of kidney and ureter; I70.0 Atherosclerosis of aorta; M47.894 Other spondylosis, thoracic region; Z90.710 Acquired absence of both cervix and uterus; Z95.0 Presence of cardiac pacemaker
CPT/HCPCS: 36415; 74177; 80053; 82150; 83690; 85025; Q9966; Q9967

== ENCOUNTER 2017-04-19 13:08 | Inpatient (IN) | payer MEDICARE ==
[~2017-04-19] VITALS: Ht 160 cm; Wt 91.2 kg
[~2017-04-19 13:08] MED LIST changes: -IOHEXOL 240 MG/ML 50ML VIAL. ONE; -IOHEXOL 300 MG/ML 75 ML VIAL. IV ONE
[2017-04-19 13:47] VITALS: BP 120/61
[2017-04-19] MEDS ORDERED: PROMETHAZINE 25 MG in IV NORMAL SALINE 50ML 50 ML IV PRN (14:00)
[2017-04-19] MEDS ORDERED: ENOXAPARIN 40 MG/0.4 ML DISP.SYRIN. SQ SCH (14:00)
[2017-04-19 14:04] LABS: BASO % 1 % (0-3); EOS # 0.1 x10^3/uL (0.0-0.7); EOS % 1 % (0-3); HEMATOCRIT 38.7 % (36.0-47.0); HEMOGLOBIN 13.1 g/dL (12.0-15.5); LYMPH # 1.3 x10^3/uL (1.0-4.8); LYMPH % 21 % (24-48); MEAN CORPUSCULAR HEMOGLOBIN 32 pg (25-35); MEAN CORPUSCULAR HGB CONC 34 g/dL (31-37); MEAN CORPUSCULAR VOLUME 95 fL (79-100); MONO # 0.4 x10^3/uL (0.0-1.1); MONO % 6 % (0-9); NEUT # 4.5 x10^3uL (1.8-7.7); NEUT % 71 % (31-73); PLATELET COUNT 296 x10^3/uL (140-400); RED BLOOD COUNT 4.08 x10^6/uL (3.50-5.40); WHITE BLOOD COUNT 6.3 x10^3/uL (4.0-11.0)
[2017-04-19 14:12] LABS: ALBUMIN 3.4 g/dL (3.4-5.0); ALBUMIN/GLOBULIN RATIO 0.9 (1.0-1.7); CALCIUM 9.4 mg/dL (8.5-10.1); CREATININE 1.2 mg/dL (0.6-1.0); GFR 44.3; POTASSIUM 4.2 mmol/L (3.5-5.1); TOTAL BILIRUBIN 0.3 mg/dL (0.2-1.0); TOTAL PROTEIN 7.1 g/dL (6.4-8.2)
[2017-04-19 14:17] VITALS: BP 120/61
[2017-04-19] MEDS: IV NORMAL SALINE 1,000ML 1,000 ML IV SCH (14:46)
--- NOTE | 2017-04-19 15:50 | RAD ---
Complete abdominal ultrasound 04/19/2017 Indication: Diarrhea. Abdominal pain. Comparison study: None Discussion: Ultrasound evaluation of the abdomen was performed. Static images are submitted to PACS. The pancreas is nonvisualized secondary to overlying gas-filled bowel. The aorta and IVC are poorly visualized but appear grossly unremarkable. The gallbladder is probably decompressed but otherwise unremarkable without evidence of wall thickening, stones, or sludge. Portal vein is patent with flow in the normal direction with normal velocity. Common bile duct is nondilated measuring 4 mm. The liver is partially visualized. Visualized portions of liver demonstrate no gross abnormality. Liver is associated be approximately 16 cm in size length which would be normal. The right kidney is poorly visualized measuring approximately 10.1 cm in length. No hydronephrosis or focal renal lesion is seen on the right. Left kidney is also unremarkable in appearance measuring approximately 10 cm in length. Spleen is normal in size measuring 10 cm longitudinally. Impression: Somewhat limited study as described without acute sonographic abnormality
[2017-04-19] MEDS ORDERED: BIFI4CAP PO (16:28)
[2017-04-19 16:34] LABS: BILIRUBIN,URINE NEG (NEG); CLARITY,URINE CLEAR; COLOR,URINE YELLOW; GLUCOSE,URINE NEG (NEG); NITRITE,URINE NEG (NEG); UROBILINOGEN,URINE 0.2 mg/dL (0.2 mg/dL)
[2017-04-19 16:35] LABS: BACTERIA,URINE 0 /HPF (0-FEW); HYALINE CASTS, URINE FEW /HPF; SQUAMOUS EPITHELIAL CELL,UR MANY /LPF
--- NOTE | 2017-04-19 17:30 | EKG ---
[address] [address] Test Date: 2017-04-19 Test Time: 17:45:09 Pat Name: SALVATORE OLIVAREZ Department: Room: ICU01 1 Gender: Md Senior Research Scientist: : 1945 Requested By: DUY WISE Order Number: [id number] Reading MD: Jose Fontanez MD Measurements Intervals [place] Rate: P: MO: QRS: QRSD: T: QT: QTc: Interpretive Statements SR Electronically Signed On 04-24-2017 14:43:04 [employer] M[employer] INSPECTOR by Jose Fontanez MD
[2017-04-19 18:49] VITALS: BP 160/64
[2017-04-19] MEDS: DULoxetine HCL 60 MG CAPSULE.DR PO SCH (21:00)
[2017-04-19] MEDS: PRIMIDONE 50 MG TABLET PO SCH (21:00)
[2017-04-19] MEDS: LORazepam 0.5 MG TABLET PO SCH (21:00)
[2017-04-19] MEDS ORDERED: AMOXAPINE PO SCH (21:00)
[2017-04-19] MEDS: MAGNESIUM OXIDE 400 MG TABLET PO SCH (21:00)
[2017-04-19] MEDS ORDERED: MELATONIN 3 MG TABLET PO SCH (21:00)
[2017-04-19] MEDS ORDERED: MIRTAZAPINE 30 MG TABLET PO SCH (21:00)
[2017-04-19] MEDS: levETIRAcetam 500 MG TABLET PO SCH (21:00)
[2017-04-19] MEDS ORDERED: DONEPEZIL HCL 10 MG TABLET PO SCH (21:00)
[2017-04-19] MEDS: busPIRone 15 MG TABLET. PO SCH (21:00)
[2017-04-19] MEDS: rOPINIRole 1 MG TABLET. PO SCH (21:00)
[2017-04-19] MEDS ORDERED: LIDOCAINE (700MG/PATCH) PATCH. TP SCH (21:00)
[2017-04-19] MEDS ORDERED: CYCLOBENZAPRINE 10 MG TABLET. PO SCH (21:00)
[2017-04-19] MEDS ORDERED: ZOLPIDEM 5 MG TABLET. PO SCH (21:00)
[2017-04-19] MEDS ORDERED: CLOPIDOGREL BISULFATE 75 MG TABLET PO SCH (21:00)
[2017-04-19] MEDS: oxyCODONE IR 5 MG TABLET PO SCH (21:00)
[2017-04-19] MEDS: CARBIDOPA/LEVODOPA 25/100MG TABLET PO SCH (21:00)
[2017-04-19 23:14] VITALS: BP 95/57
--- NOTE | 2017-04-19 23:52 | RAD ---
2 view abdomen pelvis HISTORY: Abdominal pain and dehydration Upright supine AP view abdomen pelvis There is air and formed stool scattered throughout the colon. There is relative paucity of small bowel gas. There is no evidence of abnormally dilated bowel or free air. IMPRESSION: Constipation. Electronically signed by: Marty Horton III, MD (04/19/2017 11:49 PM) [facility]
[2017-04-20] MEDS: IV NORMAL SALINE 1,000ML 1,000 ML IV SCH (00:38)
[2017-04-20 05:45] VITALS: BP 156/79
[2017-04-20 05:59] LABS: BASO % 0 % (0-3); EOS # 0.1 x10^3/uL (0.0-0.7); EOS % 2 % (0-3); HEMATOCRIT 36.1 % (36.0-47.0); HEMOGLOBIN 12.1 g/dL (12.0-15.5); LYMPH # 1.7 x10^3/uL (1.0-4.8); LYMPH % 33 % (24-48); MEAN CORPUSCULAR HEMOGLOBIN 32 pg (25-35); MEAN CORPUSCULAR HGB CONC 34 g/dL (31-37); MEAN CORPUSCULAR VOLUME 95 fL (79-100); MONO # 0.4 x10^3/uL (0.0-1.1); MONO % 7 % (0-9); NEUT % 58 % (31-73); PLATELET COUNT 270 x10^3/uL (140-400); RED BLOOD COUNT 3.78 x10^6/uL (3.50-5.40); RED CELL DISTRIBUTION WIDTH 13.2 % (11.5-14.5); WHITE BLOOD COUNT 5.2 x10^3/uL (4.0-11.0)
[2017-04-20 06:12] LABS: CALCIUM 8.6 mg/dL (8.5-10.1); CREATININE 0.9 mg/dL (0.6-1.0); GFR 61.7; POTASSIUM 3.8 mmol/L (3.5-5.1)
[2017-04-20] MEDS ORDERED: LEVOTHYROXINE 150 MCG TABLET PO SCH (07:00)
[2017-04-20] MEDS ORDERED: PANTOPRAZOLE 40 MG TABLET. PO SCH (07:30)
[2017-04-20] MEDS ORDERED: metFORMIN 500 MG TABLET PO SCH (08:00)
[2017-04-20] MEDS ORDERED: BIFIDOBACTERIUM INFANTIS 4 MG PO SCH (09:00)
[2017-04-20] MEDS ORDERED: MINERAL OIL 133 ML ENEMA. PR ONE (09:00)
[2017-04-20] MEDS ORDERED: ASPIRIN 81 MG TAB.CHEW PO SCH (09:00)
[2017-04-20] MEDS ORDERED: METHYLNALTREXONE 12 MG/0.6 ML VIAL. SQ ONE (09:00)
[2017-04-20] MEDS ORDERED: CYCLOBENZAPRINE 10 MG TABLET. PO SCH (09:00)
[2017-04-20] MEDS ORDERED: MIRABEGRON 25 MG TAB.ER.24H PO SCH (09:00)
[2017-04-20 10:00] VITALS: BP 185/93
[2017-04-20] MEDS: rOPINIRole 1 MG TABLET. PO SCH ×2 (10:10→14:53)
[2017-04-20] MEDS: CARVEDILOL 12.5 MG TABLET PO SCH ×2 (10:11→16:00)
[2017-04-20] MEDS: LORazepam 0.5 MG TABLET PO SCH ×2 (10:12→14:53)
[2017-04-20] MEDS: MAGNESIUM OXIDE 400 MG TABLET PO SCH (10:12)
[2017-04-20] MEDS: PRIMIDONE 50 MG TABLET PO SCH ×2 (10:13→14:54)
[2017-04-20] MEDS: DULoxetine HCL 60 MG CAPSULE.DR PO SCH (10:14)
[2017-04-20] MEDS: oxyCODONE IR 5 MG TABLET PO SCH (10:14)
[2017-04-20] MEDS: levETIRAcetam 500 MG TABLET PO SCH (10:14)
[2017-04-20] MEDS: CARBIDOPA/LEVODOPA 25/100MG TABLET PO SCH ×2 (10:15→14:53)
[2017-04-20] MEDS: busPIRone 15 MG TABLET. PO SCH (10:16)
[2017-04-20 11:29] VITALS: BP 144/56
[2017-04-20] MEDS ORDERED: METH150T PO (12:30)
[2017-04-20 16:30] VITALS: BP 189/87
--- NOTE | 2017-04-20 23:53 | PN ---
DATE: SUBJECTIVE: A 72-year-old female in with severe abdominal pain and would appear to be diarrhea. X-ray shows severe constipation, probably from the use of her medications and the like. Otherwise, the patient has chronic parkinsonian disease with severe tremor and she is able to take some of her medication. We will try to relieve it with Relistor and make further evaluation on her as indicated. OBJECTIVE: VITAL SIGNS: Otherwise, her vital signs remain basically stable. Blood pressure upwards of approximately 160/80, respiratory rate 16, pulse 70, afebrile. GENERAL: The patient is alert and oriented. LUNGS: Diminished throughout, poor movement of air. CARDIOVASCULAR: Regular sinus rhythm. ABDOMEN: Protuberant, soft, diffuse tenderness. No rebounding, slight guarding. Positive bowel sounds. EXTREMITIES: No clubbing, cyanosis or edema. NEUROLOGIC: Intact. IMPRESSION: Abdominal pain, chronic constipation secondary to use of narcotic pain medications for chronic pain situation. PLAN: We will make further evaluation on her as indicated. We will give her Relistor and make further evaluation once that the bowels have begun to move. DUY WISE MD DR: GERSON/richard JOB#: [id number] / [id number]
== END 2017-04-20 17:00 | disposition home or self-care (01) | DRG 392 ==
LOC: ICU 13:20
PROVIDERS: ADMIT Family Medicine; ATTEND Family Medicine
DX: K59.1 Functional diarrhea (principal); G20 Parkinson's disease; E11.9 Type 2 diabetes mellitus without complications; E86.0 Dehydration; K59.03 Drug induced constipation; R10.2 Pelvic and perineal pain; G89.29 Other chronic pain; T40.605A Adverse effect of unspecified narcotics, initial encounter; I10 Essential (primary) hypertension; M54.5 Low back pain; Z87.440 Personal history of urinary (tract) infections; I25.2 Old myocardial infarction; Z95.5 Presence of coronary angioplasty implant and graft; Z88.2 Allergy status to sulfonamides; Z88.8 Allergy status to other drugs, medicaments and biological substances; Y92.89 Other specified places as the place of occurrence of the external cause
CPT/HCPCS: 36415; 74020; 74177; 76700; 80048; 80053; 81001; 82150; 83690; 85025; 87641; 93005; Q9966; Q9967; J7030

== ENCOUNTER 2017-10-17 22:31 | Inpatient (IN) | payer MEDICARE, OTHER ==
[~2017-10-17] VITALS: Ht 160 cm; Wt 90.0 kg
[~2017-10-17 22:31] MED LIST changes: +BIFI4CAP PO; -METF500T4 PO; +METF500T5 PO; +METH150T PO
[2017-10-17] MEDS ORDERED: IV NORMAL SALINE 1,000ML 1,000 ML IV SCH (23:16)
[2017-10-17 23:29] LABS: BASO % 0 % (0-3); EOS # 0.1 x10^3/uL (0.0-0.7); EOS % 1 % (0-3); HEMATOCRIT 35.2 % (36.0-47.0); HEMOGLOBIN 12.1 g/dL (12.0-15.5); LYMPH # 3.1 x10^3/uL (1.0-4.8); LYMPH % 35 % (24-48); MEAN CORPUSCULAR HEMOGLOBIN 32 pg (25-35); MEAN CORPUSCULAR HGB CONC 34 g/dL (31-37); MEAN CORPUSCULAR VOLUME 93 fL (79-100); MONO # 0.5 x10^3/uL (0.0-1.1); MONO % 6 % (0-9); NEUT # 5.3 x10^3uL (1.8-7.7); NEUT % 59 % (31-73); PLATELET COUNT 372 x10^3/uL (140-400); RED BLOOD COUNT 3.78 x10^6/uL (3.50-5.40)
[2017-10-17] MEDS ORDERED: ONDANSETRON PF 4 MG/2 ML VIAL. IV ONE (23:30)
[2017-10-17 23:35] LABS: CLARITY,URINE HAZY; COLOR,URINE YELLOW; GLUCOSE,URINE NEG (NEG)
[2017-10-17 23:37] LABS: BACTERIA,URINE MANY /HPF (0-FEW); BILIRUBIN,URINE NEG (NEG); NITRITE,URINE NEG (NEG); RBC,URINE OCC /HPF (0-2); SQUAMOUS EPITHELIAL CELL,UR OCC /LPF; UROBILINOGEN,URINE 0.2 mg/dL (0.2 mg/dL); WBC,URINE TNTC /HPF (0-4)
[2017-10-17 23:54] LABS: ALBUMIN 3.5 g/dL (3.4-5.0); ALBUMIN/GLOBULIN RATIO 0.9 (1.0-1.7); CALCIUM 9.8 mg/dL (8.5-10.1); CREATININE 1.2 mg/dL (0.6-1.0); GFR 44.3; POTASSIUM 3.5 mmol/L (3.5-5.1); TOTAL BILIRUBIN 0.3 mg/dL (0.2-1.0); TOTAL PROTEIN 7.2 g/dL (6.4-8.2)
--- NOTE | 2017-10-17 23:55 | PHYS DOC ---
Past History Past Medical History: A-Fib, COPD, Diabetes, Hypertension, Hypothyroid, TIA, Other Past Surgical History: , Hysterectomy, Pacemaker, Other Alcohol Use: None Drug Use: None Adult General Chief Complaint Chief Complaint: ABDOMINAL PAIN HPI HPI Patient is a 72 year old female who presents with complaint of vomiting and abdominal pain. Patient states her symptoms started 2-3 days ago. Patient states that she initially had vomiting at onset. Patient states she has not been able to tolerate oral food intake since onset of symptoms. Patient states that she has been able to drink fluids but states that she has not been able to keep much down. Patient denies any known fevers. Patient started developing upper abdominal pain which she describes as dull. Patient states that she has had history of small bowel obstruction requiring bowel resection by Dr. Taylor [address] Wise for primary care. Patient denies any bloody stools but has had diarrhea. Patient has not recently been on any antibiotic therapy and has not been hospitalized or in a health care setting. Review of Systems Review of Systems Constitutional: Denies fever or chills [] Eyes: Denies change in visual acuity, redness, or eye pain [] HENT: Denies nasal congestion or sore throat [] Respiratory: Denies cough or shortness of breath [] Cardiovascular: Denies chest pain or edema[] GI: Nausea, vomiting, diarrhea, abdominal pain[] : Denies dysuria or hematuria [] Musculoskeletal: Denies back pain or joint pain [] Integument: Denies rash or skin lesions [] Neurologic: Denies headache, focal weakness or sensory changes [] All other systems were reviewed and found to be within normal limits, except as documented in this note. Current Medications Current Medications Current Medications Medications (Trade) Dose Ordered Sig/Harmeet Start Time Stop Time Status Last Admin Dose Admin Fentanyl Citrate (Fentanyl 2ml Vial) 50 mcg PRN Q15MIN PRN 10/17/17 23:30 10/18/17 23:29 UNV 10/17/17 23:30 50 MCG Iohexol (Omnipaque 300 Mg/ml) 75 ml 1X ONCE 10/17/17 23:45 10/17/17 23:46 UNV Ondansetron HCl (Zofran) 4 mg 1X ONCE 10/17/17 23:30 10/17/17 23:31 UNV 10/17/17 23:30 4 MG Sodium Chloride 1,000 ml @ 1,000 mls/hr Q1H 10/17/17 23:16 10/18/17 00:15 UNV 10/17/17 23:25 1,000 MLS/HR Allergies Allergies Allergies Coded Allergies Type Severity Reaction Last Updated Verified Sulfa (Sulfonamide Antibiotics) Allergy Intermediate Unknown 10/17/17 Yes dexamethasone Allergy Intermediate eye irritaion and swelling 10/17/17 Yes neomycin Allergy Intermediate eye irritaion and swelling 10/17/17 Yes polymyxin B Allergy Intermediate eye irritaion and swelling 10/17/17 Yes Physical Exam Physical Exam Constitutional: Alert, afebrile, appears in [id number] discomfort. [] HENT: Normocephalic, atraumatic, bilateral external ears normal, oropharynx dry , no oral exudates, nose normal. [] Eyes: PERRLA, EOMI, conjunctiva normal, no discharge. [] Neck: Normal range of motion, no tenderness, supple, no stridor. [] Cardiovascular:Heart rate regular rhythm, no murmur [] Lungs & Thorax: Bilateral breath sounds clear to auscultation [] Abdomen: Hypoactive bowel sounds, epigastric tenderness palpation with guarding , no rebound tenderness. [] Skin: Warm, dry, no erythema, no rash. [] Back: No tenderness, no CVA tenderness. [] Extremities: No tenderness, no cyanosis, no clubbing, ROM intact, no edema. [] Neurologic: Alert and oriented X 3, normal motor function, normal sensory function, no focal deficits noted. [] Current Patient Data Vital Signs Vital Signs Date Time Temp Pulse Resp B/P (MAP) Pulse Ox O2 Delivery O2 Flow Rate FiO2 10/17/17 23:30 98 Room Air Lab Results Laboratory Tests Test 10/17/17 22:58 10/17/17 23:05 10/17/17 23:10 Glucose (Fingerstick) 118 mg/dL (70-99) H White Blood Count 9.0 x10^3/uL (4.0-11.0) Red Blood Count 3.78 x10^6/uL (3.50-5.40) Hemoglobin 12.1 g/dL (12.0-15.5) Hematocrit 35.2 % (36.0-47.0) L Mean Corpuscular Volume 93 fL (79-100) Mean Corpuscular Hemoglobin 32 pg (25-35) Mean Corpuscular Hemoglobin Concent 34 g/dL (31-37) Red Cell Distribution Width 14.0 % (11.5-14.5) Platelet Count 372 x10^3/uL (140-400) Neutrophils (%) (Auto) 59 % (31-73) Lymphocytes (%) (Auto) 35 % (24-48) Monocytes (%) (Auto) 6 % (0-9) Eosinophils (%) (Auto) 1 % (0-3) Basophils (%) (Auto) 0 % (0-3) Neutrophils # (Auto) 5.3 x10^3uL (1.8-7.7) Lymphocytes # (Auto) 3.1 x10^3/uL (1.0-4.8) Monocytes # (Auto) 0.5 x10^3/uL (0.0-1.1) Eosinophils # (Auto) 0.1 x10^3/uL (0.0-0.7) Basophils # (Auto) 0.0 x10^3/uL (0.0-0.2) Urine Collection Type U cath Urine Color Yellow Urine Clarity Hazy Urine pH 5.5 Urine Specific Hope 1.025 Urine Protein >100 mg/dl (NEG-TRACE) Urine Glucose (UA) Neg mg/dL (NEG) Urine Ketones (Stick) 15 mg/dL (NEG) Urine Blood Trace (NEG) Urine Nitrite Neg (NEG) Urine Bilirubin Neg (NEG) Urine Urobilinogen Dipstick 0.2 mg/dL (0.2 mg/dL) Urine Leukocyte Esterase Large (NEG) Urine RBC Occ /HPF (0-2) Urine WBC Tntc /HPF (0-4) Urine Squamous Epithelial Cells Occ /LPF Urine Bacteria Many /HPF (0-FEW) EKG EKG Interpreted by me: Heart rate 72, sinus rhythm, leftward axis, no acute ST/T- wave abnormalities present[] Radiology/Procedures Radiology/Procedures [address] [address] IMAGING REPORT Signed PATIENT: SALVATORE OLIVAREZ ACCOUNT: [id number] : 1945 LOCATION: ER AGE: 72 SEX: F EXAM STATUS: REG ER ORD. PHYSICIAN: REGINA QUINTANA MD REASON: vomiting, upper abdominal pain, history of bowel obstruction PROCEDURE: CT ABD PELV W/ IV CONTRST ONLY INDICATION: Upper abdominal pain- mostly to the left side, n/v, hx of bowel obstruction in the past, diverticulitis, hysterectomy, copd, afib, diabetic, hypertension, pacemaker
gave Omni 300 75ml iv COMPARISON: None. TECHNIQUE: Axial CT images obtained through the abdomen and pelvis with contrast. One or more of the following individualized dose reduction techniques were utilized for this examination: 1. Automated exposure control; 2. Adjustment of the mA and/or kV according to patient size; 3. Use of iterative reconstruction technique. FINDINGS: Partial visualization of pacemaker leads. Severe calcific atherosclerosis. Liver appears mildly low attenuation. No peripancreatic edema. Spleen unremarkable. No left-sided hydronephrosis. Urinary bladder is partially distended with prominent enhancement of wall. No right-sided hydronephrosis. Colonic diverticulosis. No dilated loops of bowel to suggest obstruction. Degenerative changes of the spine with multilevel central canal and neural foraminal stenosis. Severe degenerative changes right hip. Degenerative changes left hip as well. Grade 1 anterolisthesis of L4 on 5 IMPRESSION: 1. No definite evidence of bowel obstruction. 2. Mildly prominent enhancement of the urinary bladder. This is a mild finding but would correlate with symptoms in the region to ensure that there is not a cause such as early cystitis but this is a questionable finding. 3. There is also mild prominence of the wall of a portion of duodenum. Could be from lack of distention but would correlate with symptoms to ensure that there is not a pathologic cause such as duodenitis or duodenal ulcer. 4. Multilevel central canal and neural foraminal stenosis. Electronically signed by: Pankaj Figueredo MD (10/18/2017 2:12 AM) [facility] DICTATED AND SIGNED BY: PANKAJ FIGUEREDO MD DATE: 10/18/17 0204 CC: DUY WISE MD; REGINA QUINTANA MD ~ [] Course & Med Decision Making Course & Med Decision Making Pertinent Labs and Imaging studies reviewed. (See chart for details) Patient started on IV fluids, Zofran, fentanyl. Patient found to have evidence of urinary tract infection. CT scan shows no evidence of acute small bowel obstruction. The patient was started on IV Rocephin for treatment of urinary tract infection. Due to severe symptoms of vomiting and decreased oral intake, the patient will require admission to the hospital for further care. I spoke with Dr. Wise who accepted care of patient in hospital. Dragon Disclaimer Dragon Disclaimer This electronic medical record was generated, in whole or in part, using a voice recognition dictation system. Departure Departure: Impression: Primary Impression: Urinary tract infection Additional Impressions: Vomiting Abdominal pain Disposition: ADMITTED INPATIENT Condition: STABLE Referrals: DUY WISE MD (PCP) Problem Qualifiers Primary Impression: Urinary tract infection Urinary tract infection type: site unspecified Hematuria presence: without hematuria Qualified Codes: N39.0 - Urinary tract infection, site not specified Additional Impressions: Vomiting Vomiting type: unspecified Vomiting Intractability: unspecified Nausea presence: with nausea Qualified Codes: R11.2 - Nausea with vomiting, unspecified Abdominal pain Abdominal location: epigastric Qualified Codes: R10.13 - Epigastric pain REGINA QUINTANA MD Oct 17, 2017 23:55
[2017-10-18] MEDS ORDERED: IOHEXOL 300 MG/ML 75 ML VIAL. IV ONE
[2017-10-18] MEDS ORDERED: CONTRAST GIVEN MC PRN (00:15)
[2017-10-18] MEDS ORDERED: cefTRIAXone IV Push 1 GM VIAL. IVP ONE (00:45)
--- NOTE | 2017-10-18 02:15 | RAD ---
INDICATION: Upper abdominal pain- mostly to the left side, n/v, hx of bowel obstruction in the past, diverticulitis, hysterectomy, copd, afib, diabetic, hypertension, pacemaker
gave Omni 300 75ml iv COMPARISON: None. TECHNIQUE: Axial CT images obtained through the abdomen and pelvis with contrast. One or more of the following individualized dose reduction techniques were utilized for this examination: 1. Automated exposure control; 2. Adjustment of the mA and/or kV according to patient size; 3. Use of iterative reconstruction technique. FINDINGS: Partial visualization of pacemaker leads. Severe calcific atherosclerosis. Liver appears mildly low attenuation. No peripancreatic edema. Spleen unremarkable. No left-sided hydronephrosis. Urinary bladder is partially distended with prominent enhancement of wall. No right-sided hydronephrosis. Colonic diverticulosis. No dilated loops of bowel to suggest obstruction. Degenerative changes of the spine with multilevel central canal and neural foraminal stenosis. Severe degenerative changes right hip. Degenerative changes left hip as well. Grade 1 anterolisthesis of L4 on 5 IMPRESSION: 1. No definite evidence of bowel obstruction. 2. Mildly prominent enhancement of the urinary bladder. This is a mild finding but would correlate with symptoms in the region to ensure that there is not a cause such as early cystitis but this is a questionable finding. 3. There is also mild prominence of the wall of a portion of duodenum. Could be from lack of distention but would correlate with symptoms to ensure that there is not a pathologic cause such as duodenitis or duodenal ulcer. 4. Multilevel central canal and neural foraminal stenosis. Electronically signed by: Noe House MD (10/18/2017 2:12 AM) [facility]
[2017-10-18] MEDS ORDERED: ONDANSETRON PF 4 MG/2 ML VIAL. IV PRN (02:30)
[2017-10-18 05:23] VITALS: BP 155/62
--- NOTE | 2017-10-18 08:07 | EKG ---
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
[2017-10-18] MEDS: DONEPEZIL HCL 10 MG TABLET PO SCH (09:00)
[2017-10-18] MEDS: CARBIDOPA/LEVODOPA 25/100MG TABLET PO SCH ×3 (09:00→21:42)
[2017-10-18] MEDS: NON FORMULARY ITEM (Methylnaltrexone Bromide (Relistor) 150 MG) PO SCH (09:00)
[2017-10-18] MEDS ORDERED: MAG HYDROX/AL HYDROX/SIMETH 30 ML ORAL.SUSP PO PRN (09:30)
[2017-10-18] MEDS: LEVOTHYROXINE 150 MCG TABLET PO SCH (10:00)
[2017-10-18] MEDS: CYCLOBENZAPRINE 10 MG TABLET. PO SCH ×2 (10:00→21:42)
[2017-10-18] MEDS: oxyCODONE IR 5 MG TABLET PO SCH ×3 (10:00→18:51)
[2017-10-18] MEDS: busPIRone 15 MG TABLET. PO SCH ×2 (10:00→21:41)
[2017-10-18] MEDS: IV 1/2 NORMAL SALINE 1,000 ML IV SCH ×2 (10:00→22:35)
[2017-10-18] MEDS: ASPIRIN 81 MG TAB.CHEW PO SCH (10:00)
[2017-10-18] MEDS: DULoxetine HCL 60 MG CAPSULE.DR PO SCH ×2 (10:00→21:41)
[2017-10-18] MEDS: MAGNESIUM OXIDE 400 MG TABLET PO SCH ×2 (10:00→21:41)
[2017-10-18] MEDS: PANTOPRAZOLE 40 MG TABLET. PO SCH (10:00)
[2017-10-18] MEDS: MIRABEGRON 25 MG TAB.ER.24H PO SCH (10:00)
[2017-10-18] MEDS: CARVEDILOL 12.5 MG TABLET PO SCH ×2 (10:00→15:34)
[2017-10-18] MEDS: levETIRAcetam 500 MG TABLET PO SCH ×2 (10:00→21:42)
[2017-10-18] MEDS: IV NORMAL SALINE 1,000ML 1,000 ML IV SCH ×3 (10:30→18:51)
--- NOTE | 2017-10-18 10:56 | HP ---
ADMIT DATE: 10/18/2017 HISTORY OF PRESENT ILLNESS: A 72-year-old female came in through the Emergency Room with severe nausea, vomiting, and abdominal pain for the last 2-3 days, increasingly worse. The patient not able to keep anything down. In the ER, she was found to have a significant urinary tract infection. CT scan was basically unremarkable of her abdomen and pelvis. She was admitted with IV antibiotic therapy since she could not keep anything down and was quite ill in her appearance. The patient was admitted for pyelonephritis, IV antibiotic therapy. PAST MEDICAL HISTORY: Neurological tremors, 3 CVA, TIA, dementia, spinal cord injury, chronic pain, cardiac disorders, heart attacks, coronary artery disease, pacemaker, hypertension, COPD, obstructive bowels surgery, abdominal pain, nausea, GERD, hysterectomy, , problems, urinary tract infections, multiple incontinence, urination urgency, joint replacement, back plain, endocrine disorders, diabetes, hypothyroidism, psychiatric problems with depression and anxiety. IMMUNIZATIONS: Influenza and pneumococcal are up-to-date. FAMILY HISTORY: Positive for cancer and other unknown etiologies. ALLERGIES: DEXAMETHASONE, NEOMYCIN and POLYMYXIN B. HOME MEDICATIONS: Include melatonin, donepezil 10 mg, amoxapine 200 mg, Ambien 5, Remeron 30, Flexeril p.r.n., Plavix 75, Keppra 500 mg daily, levothyroxine, lorazepam 0.5, magnesium oxide, methylnaltrexone 150 mg daily, ferrous sulfate, Nexium 40 mg daily, duloxetine 60 mg daily, diltiazem 180 mg daily, carbidopa/levodopa 25/100, fentanyl. SOCIAL HISTORY: The patient denies smoking, alcohol, or drug use. REVIEW OF SYSTEMS: The patient with nausea, vomiting, abdominal pain. Denies chest pain, shortness of breath. Denies headaches, vision change, blurred vision, double vision. Denies any melena, hematochezia, or hematemesis. Neurologically baseline. She has a resting tremor. PHYSICAL EXAMINATION: VITAL SIGNS: Blood pressure 155/62, respiratory rate 20, pulse 65, afebrile. HEENT: The patient's head was atraumatic, normocephalic. Eyes: PERRLA without jaundice. Mouth and throat were normal. NECK: Supple, without thyromegaly. LUNGS: Clear to auscultation. CARDIOVASCULAR: Regular sinus rhythm, S1, S2. No murmur, rub, thrill, or extra heart sounds. ABDOMEN: Soft, diffuse tenderness in the midepigastric area, but no rebounding, slight guarding, but no rebound and positive bowel sounds. EXTREMITIES: No clubbing, cyanosis, or edema. NEUROLOGIC: The patient was alert and oriented x 3. Speech fluent, spontaneous, appropriate. Cranial nerves 2-12 grossly intact. The patient's white count was pretty insignificant at 9, no left shift. Electrolytes show a decrease in creatinine and EGFR 44, otherwise unremarkable, but the urine did show greater than too numerous to count white blood cells and large leukocyte esterase. CT abdomen and pelvis performed. The patient will be continued monitored carefully, make further evaluation, IV antibiotic therapy, IV fluids and make further assessment on her. Pyelonephritis, unknown etiology, nausea, vomiting, abdominal pain. DUY WISE MD DR: GERSON/richard JOB#: [id number] / [id number]
[2017-10-18 10:57] VITALS: BP 125/61
[2017-10-18] MEDS ORDERED: PROMETHAZINE 12.5 MG in IV NORMAL SALINE 50ML 50 ML IV PRN (11:00)
[2017-10-18] MEDS ORDERED: PROMETHAZINE 25 MG TABLET. PO PRN (11:30)
[2017-10-18] MEDS: PRIMIDONE 50 MG TABLET PO SCH ×2 (15:34→21:43)
[2017-10-18] MEDS: rOPINIRole 1 MG TABLET. PO SCH ×2 (15:34→21:47)
[2017-10-18] MEDS: LORazepam 0.5 MG TABLET PO SCH ×3 (15:34→21:41)
[2017-10-18 15:41] VITALS: BP 163/63
[2017-10-18] MEDS ORDERED: ACETAMINOPHEN 500 MG TABLET PO PRN (17:30)
[2017-10-18 18:10] VITALS: BP 168/77
[2017-10-18] MEDS ORDERED: AMOXAPINE PO SCH (21:00)
[2017-10-18] MEDS: cefTRIAXone IV Push 1 GM VIAL. IVP SCH (21:39)
[2017-10-18] MEDS: LACTOBACILLUS RHAMNOSUS GG 1 CAPSULE. PO SCH (21:40)
[2017-10-18] MEDS: MIRTAZAPINE 30 MG TABLET PO SCH (21:41)
[2017-10-18] MEDS: CLOPIDOGREL BISULFATE 75 MG TABLET PO SCH (21:41)
[2017-10-18] MEDS: ZOLPIDEM 5 MG TABLET. PO SCH (21:41)
[2017-10-18] MEDS: MELATONIN 3 MG TABLET PO SCH (21:42)
[2017-10-18] MEDS: LIDOCAINE (700MG/PATCH) PATCH. TD SCH (21:43)
[2017-10-18 22:03] VITALS: BP 143/74
[2017-10-19] MEDS: IV 1/2 NORMAL SALINE 1,000 ML IV SCH ×3 (03:35→17:07)
[2017-10-19 05:33] VITALS: BP 150/78
[2017-10-19] MEDS: ASPIRIN 81 MG TAB.CHEW PO SCH (07:38)
[2017-10-19] MEDS: busPIRone 15 MG TABLET. PO SCH ×2 (07:38→20:46)
[2017-10-19] MEDS: CARBIDOPA/LEVODOPA 25/100MG TABLET PO SCH ×3 (07:38→20:46)
[2017-10-19] MEDS: DONEPEZIL HCL 10 MG TABLET PO SCH (07:38)
[2017-10-19] MEDS: levETIRAcetam 500 MG TABLET PO SCH ×2 (07:38→20:46)
[2017-10-19] MEDS: FERROUS SULFATE 325 MG TABLET. PO SCH (07:38)
[2017-10-19] MEDS: DULoxetine HCL 60 MG CAPSULE.DR PO SCH ×2 (07:38→20:46)
[2017-10-19] MEDS: CARVEDILOL 12.5 MG TABLET PO SCH ×2 (07:39→17:06)
[2017-10-19] MEDS: MAGNESIUM OXIDE 400 MG TABLET PO SCH ×2 (07:39→20:46)
[2017-10-19] MEDS: LACTOBACILLUS RHAMNOSUS GG 1 CAPSULE. PO SCH ×2 (07:39→20:46)
[2017-10-19] MEDS: CYCLOBENZAPRINE 10 MG TABLET. PO SCH ×2 (07:39→20:46)
[2017-10-19] MEDS: VITAMIN E 200 UNIT CAPSULE. PO SCH (07:39)
[2017-10-19] MEDS: LORazepam 0.5 MG TABLET PO SCH ×4 (07:39→20:46)
[2017-10-19] MEDS: PRIMIDONE 50 MG TABLET PO SCH ×3 (07:40→20:54)
[2017-10-19] MEDS: oxyCODONE IR 5 MG TABLET PO SCH ×2 (07:40→20:47)
[2017-10-19] MEDS: MIRABEGRON 25 MG TAB.ER.24H PO SCH (07:40)
[2017-10-19] MEDS: rOPINIRole 1 MG TABLET. PO SCH ×3 (07:40→21:05)
[2017-10-19] MEDS: LEVOTHYROXINE 150 MCG TABLET PO SCH (07:42)
[2017-10-19] MEDS: PANTOPRAZOLE 40 MG TABLET. PO SCH (07:42)
[2017-10-19] MEDS: METOCLOPRAMIDE HCL 10 MG/2 ML VIAL. IV PRN (07:51)
[2017-10-19 08:23] LABS: BASO % 0 % (0-3); EOS # 0.1 x10^3/uL (0.0-0.7); EOS % 2 % (0-3); HEMATOCRIT 35.2 % (36.0-47.0); HEMOGLOBIN 11.7 g/dL (12.0-15.5); LYMPH # 1.7 x10^3/uL (1.0-4.8); LYMPH % 34 % (24-48); MEAN CORPUSCULAR HEMOGLOBIN 31 pg (25-35); MEAN CORPUSCULAR HGB CONC 33 g/dL (31-37); MEAN CORPUSCULAR VOLUME 94 fL (79-100); MONO # 0.3 x10^3/uL (0.0-1.1); MONO % 6 % (0-9); NEUT # 2.9 x10^3uL (1.8-7.7); NEUT % 58 % (31-73); PLATELET COUNT 321 x10^3/uL (140-400); RED BLOOD COUNT 3.77 x10^6/uL (3.50-5.40); RED CELL DISTRIBUTION WIDTH 13.9 % (11.5-14.5); WHITE BLOOD COUNT 4.9 x10^3/uL (4.0-11.0)
[2017-10-19 08:30] LABS: CALCIUM 7.8 mg/dL (8.5-10.1); CREATININE 0.7 mg/dL (0.6-1.0); GFR 82.5; POTASSIUM 3.5 mmol/L (3.5-5.1)
[2017-10-19] MEDS: NON FORMULARY ITEM (Methylnaltrexone Bromide (Relistor) 150 MG) PO SCH (09:00)
[2017-10-19] MEDS ORDERED: GENTAMICIN PER PHARMACY MC PRN (09:15)
[2017-10-19] MEDS: levoFLOXacin 500 MG TABLET PO SCH (10:25)
[2017-10-19 13:23] VITALS: BP 112/62
[2017-10-19 14:30] VITALS: BP 123/70
[2017-10-19 16:50] VITALS: BP 142/87
[2017-10-19 19:00] VITALS: BP 126/60
[2017-10-19] MEDS: CLOPIDOGREL BISULFATE 75 MG TABLET PO SCH (20:46)
[2017-10-19] MEDS: ZOLPIDEM 5 MG TABLET. PO SCH (20:46)
[2017-10-19] MEDS: MIRTAZAPINE 30 MG TABLET PO SCH (20:46)
[2017-10-19] MEDS: MELATONIN 3 MG TABLET PO SCH (20:46)
[2017-10-19] MEDS: LIDOCAINE (700MG/PATCH) PATCH. TD SCH (20:47)
[2017-10-19] MEDS: cefTRIAXone IV Push 1 GM VIAL. IVP SCH (20:53)
[2017-10-19 23:00] VITALS: BP 131/74
[2017-10-20 05:48] VITALS: BP 161/81
[2017-10-20] MEDS: LEVOTHYROXINE 150 MCG TABLET PO SCH (07:44)
[2017-10-20] MEDS: CYCLOBENZAPRINE 10 MG TABLET. PO SCH ×2 (08:32→20:22)
[2017-10-20] MEDS: PANTOPRAZOLE 40 MG TABLET. PO SCH (08:32)
[2017-10-20] MEDS: oxyCODONE IR 5 MG TABLET PO SCH ×2 (08:33→20:21)
[2017-10-20] MEDS: busPIRone 15 MG TABLET. PO SCH ×2 (08:33→20:21)
[2017-10-20] MEDS: DULoxetine HCL 60 MG CAPSULE.DR PO SCH ×2 (08:34→20:24)
[2017-10-20] MEDS: ASPIRIN 81 MG TAB.CHEW PO SCH (08:35)
[2017-10-20] MEDS: levETIRAcetam 500 MG TABLET PO SCH ×2 (08:35→20:23)
[2017-10-20] MEDS: MAGNESIUM OXIDE 400 MG TABLET PO SCH ×2 (08:35→20:25)
[2017-10-20] MEDS: LORazepam 0.5 MG TABLET PO SCH ×4 (08:36→20:25)
[2017-10-20] MEDS: DONEPEZIL HCL 10 MG TABLET PO SCH (08:36)
[2017-10-20] MEDS: LACTOBACILLUS RHAMNOSUS GG 1 CAPSULE. PO SCH ×2 (08:36→20:24)
[2017-10-20] MEDS: CARVEDILOL 12.5 MG TABLET PO SCH ×2 (08:36→17:09)
[2017-10-20] MEDS: metFORMIN 500 MG TABLET PO SCH ×2 (08:36→17:08)
[2017-10-20] MEDS: FERROUS SULFATE 325 MG TABLET. PO SCH (08:36)
[2017-10-20] MEDS: PRIMIDONE 50 MG TABLET PO SCH ×3 (08:37→20:27)
[2017-10-20] MEDS: levoFLOXacin 500 MG TABLET PO SCH (08:37)
[2017-10-20] MEDS: CARBIDOPA/LEVODOPA 25/100MG TABLET PO SCH ×3 (08:38→20:23)
[2017-10-20] MEDS: rOPINIRole 1 MG TABLET. PO SCH ×3 (08:38→20:29)
[2017-10-20] MEDS: MIRABEGRON 25 MG TAB.ER.24H PO SCH ×2 (09:00→20:26)
[2017-10-20] MEDS: METOCLOPRAMIDE HCL 10 MG/2 ML VIAL. IV PRN (09:52)
--- NOTE | 2017-10-20 10:38 | PN ---
DATE: 10/19/2017 SUBJECTIVE: The patient admitted with pyelonephritis, abdominal pain, nausea, vomiting. The patient is resting fairly comfortably, although she is still very nauseated and unable to keep fluids down, continued on IV fluids, IV antibiotic therapy. Waiting for culture to come back. OBJECTIVE: VITAL SIGNS: Blood pressure 142/87, respiratory rate , pulse 73, afebrile. GENERAL: The patient is alert and oriented, but very ill appearing. LUNGS: Diminished, but clear. CARDIOVASCULAR: Stable. ABDOMEN: Soft, nontender, no rebound or guarding. Positive bowel sounds, no hepatosplenomegaly. IMPRESSION: Pyelonephritis, abdominal pain with nausea, vomiting, dehydration, morbid obesity, anemia of chronic disease. DUY WISE MD DR: GERSON/richard JOB#: [id number] / [id number]
[2017-10-20 11:16] VITALS: BP 125/72
[2017-10-20] MEDS ORDERED: METOCLOPRAMIDE HCL 10 MG/2 ML VIAL. IV PRN (12:30)
[2017-10-20 15:30] VITALS: BP 163/62
[2017-10-20 19:00] VITALS: BP 185/77
[2017-10-20] MEDS: IV 1/2 NORMAL SALINE 1,000 ML IV SCH (20:16)
[2017-10-20] MEDS: LIDOCAINE (700MG/PATCH) PATCH. TD SCH (20:18)
[2017-10-20] MEDS: MIRTAZAPINE 30 MG TABLET PO SCH (20:22)
[2017-10-20] MEDS: MELATONIN 3 MG TABLET PO SCH (20:23)
[2017-10-20] MEDS: ZOLPIDEM 5 MG TABLET. PO SCH (20:25)
[2017-10-20] MEDS: CLOPIDOGREL BISULFATE 75 MG TABLET PO SCH (20:26)
[2017-10-20] MEDS: cefTRIAXone IV Push 1 GM VIAL. IVP SCH (21:48)
--- NOTE | 2017-10-21 01:47 | PN ---
DATE: SUBJECTIVE: The patient is resting fairly comfortably, still having nausea since food just does not still right in her stomach, having problems keeping things down. We will go ahead and make her Reglan around the clock rather than just p.r.n. PHYSICAL EXAMINATION: VITAL SIGNS: Blood pressure 125/72, respiration 16, pulse 71, afebrile. GENERAL: The patient is alert and oriented. LUNGS: Diminished, but clear. CARDIOVASCULAR: Regular sinus rhythm. ABDOMEN: Soft, diffuse tenderness in the epigastric area, but slight guarding. No rebounding, positive bowel sounds. EXTREMITIES: No clubbing, cyanosis, or edema. NEUROLOGIC: The patient was alert and oriented x 3. The patient will be admitted for further evaluation. Continue with IV antibiotic. Still awaiting culture report. IMPRESSION: Pyelonephritis, urinary tract infection, nausea, vomiting, dehydration, type 2 diabetes. DUY WISE MD DR: GERSON/richard JOB#: [id number] / [id number]
[2017-10-21 05:58] VITALS: BP 166/70
[2017-10-21] MEDS: PANTOPRAZOLE 40 MG TABLET. PO SCH (08:24)
[2017-10-21] MEDS: LEVOTHYROXINE 150 MCG TABLET PO SCH (08:24)
[2017-10-21] MEDS: metFORMIN 500 MG TABLET PO SCH ×2 (08:25→16:50)
[2017-10-21] MEDS: ASPIRIN 81 MG TAB.CHEW PO SCH (08:25)
[2017-10-21] MEDS: FERROUS SULFATE 325 MG TABLET. PO SCH (08:25)
[2017-10-21] MEDS: busPIRone 15 MG TABLET. PO SCH ×2 (08:26→20:19)
[2017-10-21] MEDS: DONEPEZIL HCL 10 MG TABLET PO SCH (08:26)
[2017-10-21] MEDS: LORazepam 0.5 MG TABLET PO SCH ×4 (08:26→20:20)
[2017-10-21] MEDS: LACTOBACILLUS RHAMNOSUS GG 1 CAPSULE. PO SCH ×2 (08:28→20:21)
[2017-10-21] MEDS: CARVEDILOL 12.5 MG TABLET PO SCH ×2 (08:28→16:51)
[2017-10-21] MEDS: DULoxetine HCL 60 MG CAPSULE.DR PO SCH ×2 (08:28→20:20)
[2017-10-21] MEDS: CYCLOBENZAPRINE 10 MG TABLET. PO SCH ×2 (08:28→20:19)
[2017-10-21] MEDS: levETIRAcetam 500 MG TABLET PO SCH ×2 (08:29→20:19)
[2017-10-21] MEDS: MAGNESIUM OXIDE 400 MG TABLET PO SCH ×2 (08:29→20:19)
[2017-10-21] MEDS: levoFLOXacin 500 MG TABLET PO SCH (08:29)
[2017-10-21] MEDS: PRIMIDONE 50 MG TABLET PO SCH ×3 (08:30→20:22)
[2017-10-21] MEDS: oxyCODONE IR 5 MG TABLET PO SCH ×2 (08:31→20:21)
[2017-10-21] MEDS: CARBIDOPA/LEVODOPA 25/100MG TABLET PO SCH ×3 (08:31→20:19)
[2017-10-21] MEDS: rOPINIRole 1 MG TABLET. PO SCH ×3 (08:31→20:22)
[2017-10-21] MEDS: VITAMIN E 200 UNIT CAPSULE. PO SCH (09:02)
[2017-10-21] MEDS: IV 1/2 NORMAL SALINE 1,000 ML IV SCH ×2 (10:15→21:05)
[2017-10-21 11:00] VITALS: BP 139/84
[2017-10-21 15:03] VITALS: BP 135/82
[2017-10-21 20:00] VITALS: BP 136/83
[2017-10-21] MEDS: LIDOCAINE (700MG/PATCH) PATCH. TD SCH (20:16)
[2017-10-21] MEDS: CLOPIDOGREL BISULFATE 75 MG TABLET PO SCH (20:19)
[2017-10-21] MEDS: MIRTAZAPINE 30 MG TABLET PO SCH (20:19)
[2017-10-21] MEDS: MELATONIN 3 MG TABLET PO SCH (20:20)
[2017-10-21] MEDS: ZOLPIDEM 5 MG TABLET. PO SCH (20:21)
[2017-10-21] MEDS: cefTRIAXone IV Push 1 GM VIAL. IVP SCH (21:05)
[2017-10-21 22:29] VITALS: BP 140/75
--- NOTE | 2017-10-22 01:43 | PN ---
DATE: 10/21/2017 SUBJECTIVE: The patient has pyelonephritis. The patient has abdominal pain, doing much better overall, but still very weak. We are just beginning to advance her diet and make further evaluation on her as indicated. PHYSICAL EXAMINATION: GENERAL: Otherwise, the patient's blood pressure 140/80, respiratory rate 20, pulse 90, afebrile. GENERAL: The patient is alert and oriented. LUNGS: Diminished, but clear. CARDIOVASCULAR: Stable. ABDOMEN: Soft, not as tender as it has been, but still somewhat tender. IMPRESSION: Pyelonephritis. PLAN: As above. Continue with IV antibiotic therapy and physical and occupational therapy as well. DUY WISE MD DR: GERSON/richard JOB#: [id number] / [id number]
[2017-10-22 05:59] VITALS: BP 150/77
[2017-10-22] MEDS: PANTOPRAZOLE 40 MG TABLET. PO SCH (07:32)
[2017-10-22] MEDS: LEVOTHYROXINE 150 MCG TABLET PO SCH (07:32)
[2017-10-22] MEDS: DONEPEZIL HCL 10 MG TABLET PO SCH (08:30)
[2017-10-22] MEDS: busPIRone 15 MG TABLET. PO SCH (08:30)
[2017-10-22] MEDS: ASPIRIN 81 MG TAB.CHEW PO SCH (08:30)
[2017-10-22] MEDS: LORazepam 0.5 MG TABLET PO SCH (08:30)
[2017-10-22] MEDS: FERROUS SULFATE 325 MG TABLET. PO SCH (08:30)
[2017-10-22] MEDS: metFORMIN 500 MG TABLET PO SCH (08:30)
[2017-10-22 08:31] VITALS: BP 150/77
[2017-10-22] MEDS: LACTOBACILLUS RHAMNOSUS GG 1 CAPSULE. PO SCH (08:31)
[2017-10-22] MEDS: DULoxetine HCL 60 MG CAPSULE.DR PO SCH (08:31)
[2017-10-22] MEDS: CARVEDILOL 12.5 MG TABLET PO SCH (08:31)
[2017-10-22] MEDS: PRIMIDONE 50 MG TABLET PO SCH (08:32)
[2017-10-22] MEDS: CYCLOBENZAPRINE 10 MG TABLET. PO SCH (08:32)
[2017-10-22] MEDS: MAGNESIUM OXIDE 400 MG TABLET PO SCH (08:32)
[2017-10-22] MEDS: rOPINIRole 1 MG TABLET. PO SCH (08:32)
[2017-10-22] MEDS: levETIRAcetam 500 MG TABLET PO SCH (08:32)
[2017-10-22] MEDS: MIRABEGRON 25 MG TAB.ER.24H PO SCH (08:32)
[2017-10-22] MEDS: levoFLOXacin 500 MG TABLET PO SCH (08:32)
[2017-10-22] MEDS: oxyCODONE IR 5 MG TABLET PO SCH (08:33)
[2017-10-22] MEDS: CARBIDOPA/LEVODOPA 25/100MG TABLET PO SCH (08:33)
[2017-10-22] MEDS ORDERED: FLUC100T7 PO (08:53)
[2017-10-22] MEDS ORDERED: FLUCONAZOLE 100 MG TABLET. PO SCH (09:00)
--- NOTE | 2017-10-22 09:50 | DS ---
DATE OF DISCHARGE: 10/22/2017 HOSPITAL COURSE: Resting fairly comfortably. She made fairly good progress overall. She came in with severe nausea, vomiting. The patient was thought to have a urinary tract infection that grew out E. coli. The patient for long-term was unable to eat or drink anything. As a result, was given IV fluids as well as IV antibiotic therapy. The patient made excellent progress during the rest of her hospitalization and she was discharged to home for followup as an outpatient. IMPRESSION: Pyelonephritis, SIRS, inflammatory secondary to urinary tract infection, type 2 diabetes, morbid obesity, chronic kidney disease. DISCHARGE INSTRUCTIONS: See EMRAD. Decreased activity, and followup accordingly as an outpatient. DUY WISE MD DR: GERSON/richard JOB#: [id number] / [id number]
[2017-10-22] MEDS ORDERED: CEFPODOXIME PROXETIL 100 MG TABLET PO SCH (21:00)
== END 2017-10-22 10:05 | disposition home or self-care (01) | DRG 690 ==
LOC: ER 22:31 → LND 10-18 02:25 → 1 SOUTH 10-19 13:54
PROVIDERS: ADMIT Family Medicine; ATTEND Family Medicine
DX: N12 Tubulo-interstitial nephritis, not specified as acute or chronic (principal); R65.10 Systemic inflammatory response syndrome (SIRS) of non-infectious origin without acute organ dysfunction; D63.8 Anemia in other chronic diseases classified elsewhere; E03.9 Hypothyroidism, unspecified; E66.01 Morbid (severe) obesity due to excess calories; E86.0 Dehydration; F03.90 Unspecified dementia, unspecified severity, without behavioral disturbance, psychotic disturbance, mood disturbance, and anxiety; J44.9 Chronic obstructive pulmonary disease, unspecified; I25.10 Atherosclerotic heart disease of native coronary artery without angina pectoris; I48.91 Unspecified atrial fibrillation; K21.9 Gastro-esophageal reflux disease without esophagitis; F32.9 Major depressive disorder, single episode, unspecified; F41.9 Anxiety disorder, unspecified; G89.29 Other chronic pain; E11.22 Type 2 diabetes mellitus with diabetic chronic kidney disease; I12.9 Hypertensive chronic kidney disease with stage 1 through stage 4 chronic kidney disease, or unspecified chronic kidney disease; N18.9 Chronic kidney disease, unspecified; B96.20 Unspecified Escherichia coli [E. coli] as the cause of diseases classified elsewhere; Z79.02 Long term (current) use of antithrombotics/antiplatelets; Z68.35 Body mass index [BMI] 35.0-35.9, adult; Z90.710 Acquired absence of both cervix and uterus; Z86.73 Personal history of transient ischemic attack (TIA), and cerebral infarction without residual deficits; Z88.8 Allergy status to other drugs, medicaments and biological substances; Z79.899 Other long term (current) drug therapy
CPT/HCPCS: 36415; 51701; 74177; 80048; 80053; 81001; 82553; 82947; 83690; 84484; 85025; 87086; 87186; 93005; 96361; 96374; 96375; J0696; J2405; J2765; J3010; J7030; Q0169; Q9967; 99285-25

== ENCOUNTER 2017-10-26 17:40 | Inpatient (IN) | payer MEDICARE, OTHER ==
[~2017-10-26] VITALS: Ht 160 cm; Wt 89.4 kg
[~2017-10-26 17:40] MED LIST changes: +FLUC100T7 PO
--- NOTE | 2017-10-26 18:09 | ED.ADGEN ---
Past History Past Medical History: A-Fib, Anxiety, Arthritis, CAD, Constipation, COPD, Depression, Diabetes, Heart Disease, Hypertension, Hypothyroid, TIA, UTI, Other Past Surgical History: , Hysterectomy, Pacemaker, Other Alcohol Use: None Drug Use: None Adult General Chief Complaint Chief Complaint ". I was admitted back on 10/17/2017.. for same kind of thing... but I am not better.. more pain up here... epigastric.. I only had part of brownie today to eat.. and last night can Boost and Green Beans.. I did have a stool to day..." [facility] HPI Patient is a 72 year old female who presents with above hx and complaints generalized epigastric and mid abdomen pain. Reports nl stool this am, no bad food or ill exposure or travel. Pt. recently admitted for similar symptoms back on 10/17 and remained in hospital until 10/[address] Fabian. No improvement of symptoms the past couple days. Pt. has extensive medical hx. - IBS, GERD, Bowel resection,Gastroparesis symptoms, Diverticulitis, Gastritis / Ulcer, episodic Constipation and Diarrhea. Pt. has hx of DJD, Chronic pain, HTN, CADz with DE x 3, Pacer placement, TIA and CVA's, Hypothyroid, DM, Depression, Anxiety, recurrent UTI's , Positional Tremor ect. Pt. Last EGD-3 yrs ago- gastritis with ulcer and Last Colon 2 yrs ago- diverticulitis at [facility] per pt. Pt. still has gall bladder and appendix. Pain is described as "bad", and nothing makes it better. Reviewed labs, CT of last admission. Review of Systems Review of Systems Constitutional: Denies fever or chills [] Eyes: Denies change in visual acuity, redness, or eye pain [] HENT: Denies nasal congestion or sore throat [] Respiratory: Denies cough or shortness of breath [] Cardiovascular: No additional information not addressed in HPI [] GI: Complants of abdominal pain, nausea. No vomiting, bloody stools or diarrhea [] : Denies dysuria or hematuria [] Musculoskeletal: Denies back pain or joint pain [] Integument: Denies rash or skin lesions [] Neurologic: Denies headache, focal weakness or sensory changes [] Endocrine: Denies polyuria or polydipsia [] All other systems were reviewed and found to be within normal limits, except as documented in this note. Family History Family History Non contributory Current Medications Current Medications Current Medications Medications (Trade) Dose Ordered Sig/Harmeet Start Time Stop Time Status Last Admin Dose Admin Famotidine (Pepcid) 20 mg 1X ONCE 10/26/17 18:15 10/26/17 18:16 DC 10/26/17 18:48 20 MG Lactated Ringer's 1,000 ml @ 100 mls/hr Q10H 10/26/17 18:30 10/27/17 04:29 10/26/17 18:48 100 MLS/HR Magnesium Hydroxide (Milk Of Magnesia) 2,400 mg 1X ONCE 10/26/17 18:15 10/26/17 18:16 DC 10/26/17 18:48 2,400 MG Ondansetron HCl (Zofran Odt) 8 mg 1X ONCE 10/26/17 18:15 10/26/17 18:16 DC 10/26/17 18:48 8 MG See Nursing for home meds Allergies Allergies Allergies Coded Allergies Type Severity Reaction Last Updated Verified Sulfa (Sulfonamide Antibiotics) Allergy Intermediate Unknown 10/17/17 Yes dexamethasone Allergy Intermediate eye irritaion and swelling 10/17/17 Yes neomycin Allergy Intermediate eye irritaion and swelling 10/17/17 Yes polymyxin B Allergy Intermediate eye irritaion and swelling 10/17/17 Yes Physical Exam Physical Exam Constitutional: Moderately acute distress, non-toxic appearance. [] HENT: Normocephalic, atraumatic, bilateral external ears normal, oropharynx moist, no oral exudates, nose normal. [] Eyes: PERRLA, EOMI, conjunctiva normal, no discharge. [] Neck: Normal range of motion, no tenderness, supple, no stridor. [] Cardiovascular:Heart rate regular rhythm, no murmur []PMI to Lt. Lungs & Thorax: Bilateral breath sounds equal at apex on auscultation []Pacer scars. Abdomen: Bowel sounds decreased, soft, epigastric and mid abd. tenderness, no masses, no pulsatile masses. [] Old surgery scars. Obese. Mild to moderate distention. No true rebound. Skin: Warm, dry, no erythema, no rash. [] Back: No tenderness, no CVA tenderness. [] Extremities: No tenderness, no cyanosis, no clubbing, ROM intact, no edema. [] No psoas. Knee scar s bilateral. Rt shoulder scar. No psoas or heel tap. Neurologic: Alert and oriented X 3, normal motor function, normal sensory function, no focal deficits noted. [] Psychologic: Affect anxious, judgement normal, mood depressed. Current Patient Data Vital Signs Vital Signs Date Time Temp Pulse Resp B/P (MAP) Pulse Ox O2 Delivery O2 Flow Rate FiO2 10/26/17 18:32 75 22 157/117 (130) 97 Room Air 10/26/17 18:04 98.8 Lab Results Laboratory Tests Test 10/26/17 18:25 10/26/17 18:45 White Blood Count 6.8 x10^3/uL (4.0-11.0) Red Blood Count 3.73 x10^6/uL (3.50-5.40) Hemoglobin 11.7 g/dL (12.0-15.5) L Hematocrit 35.2 % (36.0-47.0) L Mean Corpuscular Volume 95 fL (79-100) Mean Corpuscular Hemoglobin 31 pg (25-35) Mean Corpuscular Hemoglobin Concent 33 g/dL (31-37) Red Cell Distribution Width 14.4 % (11.5-14.5) Platelet Count 340 x10^3/uL (140-400) Neutrophils (%) (Auto) 55 % (31-73) Lymphocytes (%) (Auto) 37 % (24-48) Monocytes (%) (Auto) 6 % (0-9) Eosinophils (%) (Auto) 2 % (0-3) Basophils (%) (Auto) 0 % (0-3) Neutrophils # (Auto) 3.7 x10^3uL (1.8-7.7) Lymphocytes # (Auto) 2.5 x10^3/uL (1.0-4.8) Monocytes # (Auto) 0.4 x10^3/uL (0.0-1.1) Eosinophils # (Auto) 0.1 x10^3/uL (0.0-0.7) Basophils # (Auto) 0.0 x10^3/uL (0.0-0.2) Prothrombin Time 10.2 SEC (9.4-11.4) Prothrombin Time INR 1.0 (0.9-1.1) PTT 26 SEC (23-33) Sodium Level 133 mmol/L (136-145) L Potassium Level 3.8 mmol/L (3.5-5.1) Chloride Level 97 mmol/L (98-107) L Carbon Dioxide Level 34 mmol/L (21-32) H Anion Gap 2 (6-14) L Blood Urea Nitrogen 12 mg/dL (7-20) Creatinine 0.9 mg/dL (0.6-1.0) Estimated GFR (Cockcroft-Gault) 61.7 Glucose Level 94 mg/dL (70-99) Calcium Level 9.0 mg/dL (8.5-10.1) Total Bilirubin 0.3 mg/dL (0.2-1.0) Direct Bilirubin 0.1 mg/dL (0.0-0.2) Aspartate Amino Transferase (AST) 20 U/L (15-37) Alanine Aminotransferase (ALT) 12 U/L (14-59) L Alkaline Phosphatase 125 U/L (46-116) H Creatine Kinase 70 U/L (26-192) Creatine Kinase MB (Mass) 0.8 ng/mL (0.0-3.6) Creatine Kinase MB Relative Index 1.1 % (0-4) Troponin I Quantitative < 0.017 ng/mL (0-0.055) Total Protein 6.8 g/dL (6.4-8.2) Albumin 3.3 g/dL (3.4-5.0) L Amylase Level 34 U/L (25-115) Lipase 76 U/L (73-393) Urine Collection Type Unknown Urine Color Straw Urine Clarity Clear Urine pH 7.0 Urine Specific [place] <=1.005 Urine Protein Neg (NEG-TRACE) Urine Glucose (UA) Neg mg/dL (NEG) Urine Ketones (Stick) Neg mg/dL (NEG) Urine Blood Neg (NEG) Urine Nitrite Neg (NEG) Urine Bilirubin Neg (NEG) Urine Urobilinogen Dipstick 0.2 mg/dL (0.2 mg/dL) Urine Leukocyte Esterase Neg (NEG) Urine RBC Occ /HPF (0-2) Urine WBC Occ /HPF (0-4) Urine Squamous Epithelial Cells Mod /LPF Urine Bacteria 0 /HPF (0-FEW) Urine Opiates Screen Pos (NEG) Urine Methadone Screen Neg (NEG) Urine Barbiturates Pos (NEG) Urine Phencyclidine Screen Neg (NEG) Urine Amphetamine/Methamphetamine Neg (NEG) Urine Benzodiazepines Screen Neg (NEG) Urine Cocaine Screen Neg (NEG) Urine Cannabinoids Screen Neg (NEG) Urine Ethyl Alcohol Neg (NEG) EKG EKG My interpretation EKG shows a sinus rhythm at 77 bpm. Does occasional premature atrial contraction. Mild leftward axis. No findings acute STEMI of contralateral changes.[] Radiology/Procedures Radiology/Procedures I interpretation of abdomen film shows no acute cardiopulmonary changes from prior film. Has pacer on Rt. with atrial and ventricular leads. Some mild chronic changes lung parenchyma.[] Abdomen shows stool throughout the colon. Old surgery clips. No free air under the diaphragm. Generally a nonobstructive bowel gas pattern. Course & Med Decision Making Course & Med Decision Making Pertinent Labs and Imaging studies reviewed. (See chart for details) Current exam- does not appear to have a surgical abd. at this time. Will do bowel prep- possible Colon scopic and EGD eval. Discussed presentation, testing and tx plan with Dr. Fabian- advised admit for further eval. and Tx. [] Final Impression Final Impression 1. Abd. Pain[]- Epigastric and Mid. Abdomen 2. Nausea 3. Constipation 4. History of urinary tract infection 5. Anemia 11.7 6. Hyponatremia- Mild 132 7. Elevated Alk phos 8. HTN 160-170/64-70 9. Hx. DM 10 Hx CADz 11.Hx CVA and TIA 12. Hx. Hypothyroid 13. Hx Anxiety and Depression and Dementia 14. Hx. Chronic Back pain and Arthritis 15- Possible IBS exacerbation, Adhesions, Colitis, Gastritis? Dragon Disclaimer Dragon Disclaimer This electronic medical record was generated, in whole or in part, using a voice recognition dictation system. ANTONIETA PAINTER MD Oct 26, 2017 18:09
[2017-10-26] MEDS ORDERED: MAGNESIUM HYDROXIDE 2,400 MG/30 ML ORAL.SUSP. PO ONE (18:15)
[2017-10-26] MEDS ORDERED: ONDANSETRON ODT 4 MG TAB.RAPDIS PO ONE (18:15)
[2017-10-26] MEDS ORDERED: FAMOTIDINE 20 MG TABLET PO ONE (18:15)
[2017-10-26] MEDS ORDERED: IV RINGERS SOLUTION,LACTATED 1,000 ML IV SCH (18:30)
--- NOTE | 2017-10-26 18:32 | EKG ---
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
[2017-10-26 18:44] LABS: BASO % 0 % (0-3); EOS # 0.1 x10^3/uL (0.0-0.7); EOS % 2 % (0-3); HEMATOCRIT 35.2 % (36.0-47.0); HEMOGLOBIN 11.7 g/dL (12.0-15.5); LYMPH # 2.5 x10^3/uL (1.0-4.8); LYMPH % 37 % (24-48); MEAN CORPUSCULAR HEMOGLOBIN 31 pg (25-35); MEAN CORPUSCULAR HGB CONC 33 g/dL (31-37); MEAN CORPUSCULAR VOLUME 95 fL (79-100); MONO # 0.4 x10^3/uL (0.0-1.1); MONO % 6 % (0-9); NEUT # 3.7 x10^3uL (1.8-7.7); NEUT % 55 % (31-73); PLATELET COUNT 340 x10^3/uL (140-400); RED BLOOD COUNT 3.73 x10^6/uL (3.50-5.40); RED CELL DISTRIBUTION WIDTH 14.4 % (11.5-14.5); WHITE BLOOD COUNT 6.8 x10^3/uL (4.0-11.0)
[2017-10-26 19:05] LABS: ALBUMIN 3.3 g/dL (3.4-5.0); CREATININE 0.9 mg/dL (0.6-1.0); DIRECT BILIRUBIN 0.1 mg/dL (0.0-0.2); GFR 61.7; POTASSIUM 3.8 mmol/L (3.5-5.1); TOTAL BILIRUBIN 0.3 mg/dL (0.2-1.0); TOTAL PROTEIN 6.8 g/dL (6.4-8.2)
[2017-10-26 19:13] LABS: AMPHETAMINE/METHAMPHETAMINE NEG (NEG); BARBITURATES POS (NEG); BENZODIAZEPINES NEG (NEG); CANNABINOIDS NEG (NEG); COCAINE NEG (NEG); METHADONE NEG (NEG); OPIATES POS (NEG); PHENCYCLIDINE NEG (NEG)
[2017-10-26 19:20] LABS: BILIRUBIN,URINE NEG (NEG); CLARITY,URINE CLEAR; COLOR,URINE STRAW; GLUCOSE,URINE NEG (NEG); UROBILINOGEN,URINE 0.2 mg/dL (0.2 mg/dL)
[2017-10-26 19:21] LABS: BACTERIA,URINE 0 /HPF (0-FEW); NITRITE,URINE NEG (NEG); RBC,URINE OCC /HPF (0-2); SQUAMOUS EPITHELIAL CELL,UR MOD /LPF; WBC,URINE OCC /HPF (0-4)
[2017-10-26] MEDS ORDERED: KETOROLAC 15 MG/ML VIAL. IV PRN (19:45)
[2017-10-26] MEDS ORDERED: PEG 3350/NA SULF,BICARB,CL/KCL 4,000 ML SOLUTION. PO ONE (19:45)
[2017-10-26] MEDS ORDERED: ONDANSETRON ODT 4 MG TAB.RAPDIS PO PRN (19:45)
--- NOTE | 2017-10-26 20:05 | RAD ---
Acute abdomen series. History: Central abdominal pain radiating to the left x2 weeks. Comparison: April 19, 2017. Findings: Frontal chest radiograph. Cardiac silhouette appears within normal limits for size. No pneumoperitoneum, pneumothorax, or large pleural effusion seen. No focal infiltrate is identified. Dual-lead pacemaker by right subclavian approach is seen. Supine and upright AP views of the abdomen. Bowel gas pattern is nonspecific, without evidence of small bowel obstruction. Moderate colonic stool is present. Degenerative changes are present spine. Impression: No acute abnormality identified in the chest or abdomen. Electronically signed by: Nelson Duran MD (10/26/2017 8:02 PM) [facility]
[2017-10-26] MEDS: IV RINGERS SOLUTION,LACTATED 1,000 ML IV SCH (20:35)
[2017-10-26 20:49] VITALS: BP 145/80
[2017-10-26] MEDS ORDERED: FAMOTIDINE 20 MG TABLET PO SCH (21:00)
[2017-10-26] MEDS ORDERED: CYCLOBENZAPRINE 10 MG TABLET. PO PRN (23:45)
[2017-10-27] MEDS: IV RINGERS SOLUTION,LACTATED 1,000 ML IV SCH ×4 (02:04→20:45)
[2017-10-27 06:04] VITALS: BP 157/66
[2017-10-27] MEDS: LEVOTHYROXINE 150 MCG TABLET PO SCH (06:07)
[2017-10-27 06:50] LABS: CALCIUM 8.4 mg/dL (8.5-10.1); CREATININE 0.7 mg/dL (0.6-1.0); GFR 82.5; POTASSIUM 3.6 mmol/L (3.5-5.1)
[2017-10-27 06:54] LABS: BASO % 0 % (0-3); EOS # 0.1 x10^3/uL (0.0-0.7); EOS % 2 % (0-3); HEMATOCRIT 32.9 % (36.0-47.0); HEMOGLOBIN 11.1 g/dL (12.0-15.5); LYMPH # 1.4 x10^3/uL (1.0-4.8); LYMPH % 31 % (24-48); MEAN CORPUSCULAR HEMOGLOBIN 32 pg (25-35); MEAN CORPUSCULAR HGB CONC 34 g/dL (31-37); MEAN CORPUSCULAR VOLUME 93 fL (79-100); MONO # 0.3 x10^3/uL (0.0-1.1); MONO % 7 % (0-9); NEUT # 2.7 x10^3uL (1.8-7.7); NEUT % 59 % (31-73); PLATELET COUNT 310 x10^3/uL (140-400); RED BLOOD COUNT 3.52 x10^6/uL (3.50-5.40); RED CELL DISTRIBUTION WIDTH 14.3 % (11.5-14.5); WHITE BLOOD COUNT 4.5 x10^3/uL (4.0-11.0)
[2017-10-27] MEDS: MIRABEGRON 25 MG TAB.ER.24H PO SCH (09:00)
[2017-10-27] MEDS ORDERED: CYCLOBENZAPRINE 10MG 4TABLET STARTPACK PO SCH (09:00)
[2017-10-27] MEDS: NON FORMULARY ITEM (Methylnaltrexone Bromide (Relistor) 150 MG) PO SCH (09:00)
[2017-10-27] MEDS: METOCLOPRAMIDE 10 MG TABLET PO SCH ×4 (09:16→21:15)
[2017-10-27] MEDS: levETIRAcetam 500 MG TABLET PO SCH ×2 (09:16→21:15)
[2017-10-27] MEDS: LACTOBACILLUS RHAMNOSUS GG 1 CAPSULE. PO SCH ×2 (09:16→21:13)
[2017-10-27] MEDS: CHOLECALCIFEROL (VITAMIN D3) 1,000 UNIT TABLET PO SCH (09:16)
[2017-10-27] MEDS: ASPIRIN 81 MG TAB.CHEW PO SCH (09:16)
[2017-10-27] MEDS: CARBIDOPA/LEVODOPA 25/100MG TABLET PO SCH ×3 (09:16→21:13)
[2017-10-27] MEDS: busPIRone 15 MG TABLET. PO SCH ×2 (09:16→21:13)
[2017-10-27] MEDS: metFORMIN 500 MG TABLET PO SCH ×2 (09:16→16:29)
[2017-10-27] MEDS: FERROUS SULFATE 325 MG TABLET. PO SCH (09:17)
[2017-10-27] MEDS: MAGNESIUM OXIDE 400 MG TABLET PO SCH ×2 (09:17→21:13)
[2017-10-27] MEDS: DULoxetine HCL 60 MG CAPSULE.DR PO SCH ×2 (09:17→21:13)
[2017-10-27] MEDS: PANTOPRAZOLE 40 MG TABLET. PO SCH (09:17)
[2017-10-27] MEDS: LORazepam 0.5 MG TABLET PO SCH ×4 (09:17→21:13)
[2017-10-27] MEDS: CARVEDILOL 12.5 MG TABLET PO SCH ×2 (09:17→16:30)
[2017-10-27] MEDS: FLUCONAZOLE 100 MG TABLET. PO SCH (09:17)
[2017-10-27] MEDS: PRIMIDONE 50 MG TABLET PO SCH ×3 (09:18→21:18)
[2017-10-27] MEDS: VITAMIN E 200 UNIT CAPSULE. PO SCH (09:18)
[2017-10-27] MEDS: oxyCODONE IR 5 MG TABLET PO SCH ×2 (09:18→21:15)
[2017-10-27] MEDS: rOPINIRole 1 MG TABLET. PO SCH ×3 (09:18→21:18)
[2017-10-27 10:55] VITALS: BP 159/67
[2017-10-27 15:12] VITALS: BP 146/68
[2017-10-27 19:15] VITALS: BP 126/62
[2017-10-27] MEDS: AMOXAPINE PO SCH (21:00)
[2017-10-27] MEDS: MELATONIN 3 MG TABLET PO SCH (21:13)
[2017-10-27] MEDS: DONEPEZIL HCL 10 MG TABLET PO SCH (21:13)
[2017-10-27] MEDS: CLOPIDOGREL BISULFATE 75 MG TABLET PO SCH (21:15)
[2017-10-27] MEDS: ZOLPIDEM 5 MG TABLET. PO SCH (21:15)
[2017-10-27] MEDS: MIRTAZAPINE 30 MG TABLET PO SCH (21:15)
[2017-10-27] MEDS: LIDOCAINE (700MG/PATCH) PATCH. TD SCH (21:16)
[2017-10-27 23:00] VITALS: BP 134/84
--- NOTE | 2017-10-28 00:07 | PN ---
DATE: SUBJECTIVE: A 72-year-old female came in with nausea, vomiting, abdominal pain. The patient is resting fairly comfortably presently. We will try to advance her diet carefully and make further evaluation on her. PHYSICAL EXAMINATION: VITAL SIGNS: Otherwise, the patient's blood pressure 146/70, respiratory rate 20, pulse 78, afebrile. GENERAL: The patient is alert and oriented. LUNGS: Clear. CARDIOVASCULAR: Regular sinus rhythm. ABDOMEN: Soft. Tenderness in the epigastric area. Slight guarding, but no rebounding, positive bowel sounds, no hepatosplenomegaly. EXTREMITIES: No clubbing, cyanosis or edema. NEUROLOGIC: Intact. LABORATORY DATA: The patient's labs look basically stable. We will continue to monitor the patient, accordingly make further evaluation on her ____ results. IMPRESSION: Abdominal pain, nausea, vomiting, epigastric pain, dehydration. We will go ahead and continue to monitor the patient and make further assessment on her as indicated. DUY WISE MD DR: GERSON/richard JOB#: [id number] / [id number]
[2017-10-28] MEDS: IV RINGERS SOLUTION,LACTATED 1,000 ML IV SCH ×4 (03:00→21:45)
[2017-10-28 05:40] VITALS: BP 142/80
[2017-10-28] MEDS: LEVOTHYROXINE 150 MCG TABLET PO SCH (06:01)
[2017-10-28] MEDS: NON FORMULARY ITEM (Methylnaltrexone Bromide (Relistor) 150 MG) PO SCH (09:00)
[2017-10-28] MEDS: MIRABEGRON 25 MG TAB.ER.24H PO SCH (09:00)
[2017-10-28] MEDS: LORazepam 0.5 MG TABLET PO SCH ×4 (09:23→20:32)
[2017-10-28] MEDS: rOPINIRole 1 MG TABLET. PO SCH ×3 (09:23→20:33)
[2017-10-28] MEDS: ASPIRIN 81 MG TAB.CHEW PO SCH (09:23)
[2017-10-28] MEDS: CARBIDOPA/LEVODOPA 25/100MG TABLET PO SCH ×3 (09:23→20:32)
[2017-10-28] MEDS: oxyCODONE IR 5 MG TABLET PO SCH ×2 (09:23→20:31)
[2017-10-28] MEDS: CHOLECALCIFEROL (VITAMIN D3) 1,000 UNIT TABLET PO SCH (09:23)
[2017-10-28] MEDS: VITAMIN E 200 UNIT CAPSULE. PO SCH (09:23)
[2017-10-28] MEDS: PRIMIDONE 50 MG TABLET PO SCH ×3 (09:23→20:33)
[2017-10-28] MEDS: PANTOPRAZOLE 40 MG TABLET. PO SCH (09:23)
[2017-10-28] MEDS: CARVEDILOL 12.5 MG TABLET PO SCH ×2 (09:23→15:54)
[2017-10-28] MEDS: metFORMIN 500 MG TABLET PO SCH ×2 (09:23→15:54)
[2017-10-28] MEDS: busPIRone 15 MG TABLET. PO SCH ×2 (09:23→20:32)
[2017-10-28] MEDS: LACTOBACILLUS RHAMNOSUS GG 1 CAPSULE. PO SCH ×2 (09:23→20:31)
[2017-10-28] MEDS: MAGNESIUM OXIDE 400 MG TABLET PO SCH ×2 (09:24→20:31)
[2017-10-28] MEDS: FERROUS SULFATE 325 MG TABLET. PO SCH (09:24)
[2017-10-28] MEDS: DULoxetine HCL 60 MG CAPSULE.DR PO SCH ×2 (09:24→20:36)
[2017-10-28] MEDS: levETIRAcetam 500 MG TABLET PO SCH ×2 (09:24→20:34)
[2017-10-28] MEDS: FLUCONAZOLE 100 MG TABLET. PO SCH (09:24)
[2017-10-28] MEDS: METOCLOPRAMIDE 10 MG TABLET PO SCH ×4 (09:24→20:32)
[2017-10-28 11:00] VITALS: BP 148/70
--- NOTE | 2017-10-28 16:11 | PN ---
DATE: 10/28/2017 SUBJECTIVE: A 72-year-old female in with epigastric problems with nausea and vomiting, doing somewhat better. We are advancing her diet slowly. She is having a bowel movement now. PHYSICAL EXAMINATION: VITAL SIGNS: Blood pressure 140/70, respiratory rate 16, pulse 84 and afebrile. GENERAL: The patient is alert and oriented. LUNGS: Diminished, but clear. CARDIOVASCULAR: Stable. ABDOMEN: Soft, nontender, no rebound or guarding. NEUROLOGIC: Much improved overall, so she is making good progress there. IMPRESSION: Abdominal pain, nausea, vomiting, dehydration, epigastric pain. PLAN: Continue advance diet, make further evaluation on her as indicated. DUY WISE MD DR: GERSON/richard JOB#: [id number] / [id number]
[2017-10-28 16:25] VITALS: BP 146/82
[2017-10-28 20:06] VITALS: BP 129/76
[2017-10-28] MEDS: LIDOCAINE (700MG/PATCH) PATCH. TD SCH (20:29)
[2017-10-28] MEDS: CLOPIDOGREL BISULFATE 75 MG TABLET PO SCH (20:32)
[2017-10-28] MEDS: DONEPEZIL HCL 10 MG TABLET PO SCH (20:32)
[2017-10-28] MEDS: MELATONIN 3 MG TABLET PO SCH (20:32)
[2017-10-28] MEDS: MIRTAZAPINE 30 MG TABLET PO SCH (20:32)
[2017-10-28] MEDS: AMOXAPINE PO SCH (20:35)
[2017-10-28] MEDS: ZOLPIDEM 5 MG TABLET. PO SCH (20:43)
[2017-10-28 23:16] VITALS: BP 145/83
[2017-10-29] MEDS: IV RINGERS SOLUTION,LACTATED 1,000 ML IV SCH (04:00)
[2017-10-29] MEDS: LEVOTHYROXINE 150 MCG TABLET PO SCH (06:31)
[2017-10-29 07:37] VITALS: BP 153/70
[2017-10-29] MEDS: PANTOPRAZOLE 40 MG TABLET. PO SCH (07:48)
[2017-10-29] MEDS: metFORMIN 500 MG TABLET PO SCH (07:48)
[2017-10-29] MEDS: METOCLOPRAMIDE 10 MG TABLET PO SCH (07:49)
[2017-10-29] MEDS: CARBIDOPA/LEVODOPA 25/100MG TABLET PO SCH (08:48)
[2017-10-29] MEDS: FERROUS SULFATE 325 MG TABLET. PO SCH (08:48)
[2017-10-29] MEDS: DULoxetine HCL 60 MG CAPSULE.DR PO SCH (08:49)
[2017-10-29] MEDS: ASPIRIN 81 MG TAB.CHEW PO SCH (08:49)
[2017-10-29] MEDS: CHOLECALCIFEROL (VITAMIN D3) 1,000 UNIT TABLET PO SCH (08:49)
[2017-10-29] MEDS: MAGNESIUM OXIDE 400 MG TABLET PO SCH (08:49)
[2017-10-29] MEDS: levETIRAcetam 500 MG TABLET PO SCH (08:49)
[2017-10-29] MEDS: FLUCONAZOLE 100 MG TABLET. PO SCH (08:49)
[2017-10-29] MEDS: oxyCODONE IR 5 MG TABLET PO SCH (08:49)
[2017-10-29] MEDS: busPIRone 15 MG TABLET. PO SCH (08:49)
[2017-10-29] MEDS: CARVEDILOL 12.5 MG TABLET PO SCH (08:49)
[2017-10-29] MEDS: LORazepam 0.5 MG TABLET PO SCH (08:49)
[2017-10-29] MEDS: LACTOBACILLUS RHAMNOSUS GG 1 CAPSULE. PO SCH (08:49)
[2017-10-29 08:50] VITALS: BP 153/70
[2017-10-29] MEDS: MIRABEGRON 25 MG TAB.ER.24H PO SCH (08:50)
[2017-10-29] MEDS: PRIMIDONE 50 MG TABLET PO SCH (08:51)
[2017-10-29] MEDS: VITAMIN E 200 UNIT CAPSULE. PO SCH (08:51)
[2017-10-29] MEDS: rOPINIRole 1 MG TABLET. PO SCH (08:51)
[2017-10-29] MEDS: NON FORMULARY ITEM (Methylnaltrexone Bromide (Relistor) 150 MG) PO SCH (09:16)
[2017-10-29] MEDS ORDERED: CYCL-331 PO (10:02)
[2017-10-29] MEDS ORDERED: ASPI-630 PO (10:02)
--- NOTE | 2017-10-29 10:02 | DS ---
DATE OF DISCHARGE: 10/29/2017 HOSPITAL COURSE: The patient is a 72-year-old female who is in with an abdominal pain with nausea, vomiting, unable to keep anything down. The patient was admitted and given IV fluids for her hydration. She made relatively good progress overall. Her nausea and vomiting subsided. She began having good bowel movements and then will be arranged for discharge to see a GI specialist for further evaluation. None available at this time here. In any case, the patient made excellent progress and was discharged home. IMPRESSION: Therefore of abdominal pain, nausea and vomiting, dehydration, moderate protein malnutrition, obstipation, history of Parkinson's disease. She will be on a heart healthy diet, plenty of fresh fruits, veg cheese and veggies. Activity as tolerated. Follow up with GI medicine as soon as we can arrange an appointment for her. DUY WISE MD DR: GERSON/richard JOB#: [id number] / [id number]
== END 2017-10-29 10:40 | disposition home or self-care (01) | DRG 392 ==
LOC: ER 17:40 → 1 SOUTH 19:00
PROVIDERS: ADMIT Family Medicine; ATTEND Family Medicine
DX: K31.84 Gastroparesis (principal); E44.0 Moderate protein-calorie malnutrition; E87.1 Hypo-osmolality and hyponatremia; E86.0 Dehydration; Z88.2 Allergy status to sulfonamides; E03.9 Hypothyroidism, unspecified; E11.43 Type 2 diabetes mellitus with diabetic autonomic (poly)neuropathy; Z88.8 Allergy status to other drugs, medicaments and biological substances; G20 Parkinson's disease; I10 Essential (primary) hypertension; I25.10 Atherosclerotic heart disease of native coronary artery without angina pectoris; I25.2 Old myocardial infarction; I48.91 Unspecified atrial fibrillation; K59.00 Constipation, unspecified; M54.9 Dorsalgia, unspecified; J44.9 Chronic obstructive pulmonary disease, unspecified; F32.9 Major depressive disorder, single episode, unspecified; F41.9 Anxiety disorder, unspecified; G89.29 Other chronic pain; M19.90 Unspecified osteoarthritis, unspecified site; K21.9 Gastro-esophageal reflux disease without esophagitis; K58.9 Irritable bowel syndrome, unspecified; Z86.73 Personal history of transient ischemic attack (TIA), and cerebral infarction without residual deficits; Z87.440 Personal history of urinary (tract) infections; Z90.710 Acquired absence of both cervix and uterus; Z68.34 Body mass index [BMI] 34.0-34.9, adult
CPT/HCPCS: 36415; 74022; 80048; 80076; 80307; 81001; 82150; 82553; 82947; 83690; 84484; 85025; 85610; 85730; 93005; 96360; J7120; J8597; Q0162; 99285-25; G0479

== ENCOUNTER → 2018-03-11 | Outpatient (CLI) | payer MEDICARE ==
[~2018-03-11] MED LIST changes: +METF500T16 PO; -METF500T5 PO
--- NOTE | 2018-03-11 16:48 | RAD ---
Right lower extremity venous ultrasound, 03/11/2018 : History: Right leg pain Duplex evaluation including grayscale, color flow and spectral Doppler analysis was performed. The femoral and popliteal veins show no filling defects to suggest DVT. The visualized deep veins in the right calf are unremarkable. Incidental note is made of a 1.7 x 1.2 x 1.7 oval-shaped hyperechoic lesion in the subcutaneous soft tissues along the medial aspect of the right knee. The findings are nonspecific, however, its echogenicity is suggestive of a lipoma. Clinical surveillance and possibly sonographic follow-up is suggested. IMPRESSION: There is no sonographic evidence of deep vein thrombosis in the right lower extremity Electronically signed by: Evan Coronel MD (03/11/2018 4:45 PM) [facility]
== END | disposition home or self-care (01) ==
LOC: US 15:34
PROVIDERS: ATTEND Family Medicine
DX: M79.89 Other specified soft tissue disorders (principal); M79.606 Pain in leg, unspecified
CPT/HCPCS: 93971

== ENCOUNTER → 2018-04-23 | Outpatient (CLI) | payer MEDICARE, OTHER ==
[~2018-04-23] MED LIST changes: -OXYC20TA34 PO; +OXYC20TA35 PO
--- NOTE | 2018-04-23 14:31 | RAD ---
EXAM: CT lumbar spine without IV contrast CLINICAL HISTORY:CHRONIC LOWER BACK PAIN, FALL 24 HRS AGO, SCIATICA COMPARISON: None available. TECHNIQUE: Helical CT was performed through the lumbar spine. Axial, coronal and sagittal reformatted images were generated. PQRS compliance statement - One or more of the following individualized dose reduction techniques were utilized for this study: 1. Automated exposure control 2. Adjustment of the mA and/or kV according to patient size 3. Use of iterative reconstruction technique FINDINGS: Vertebral body heights are preserved. There is 4 mm anterolisthesis of L4 on L5 and 3 mm retrolisthesis of L2 on L3. Facet degenerative changes are seen at multiple levels most prominent at L3-4, L4-5 and L5-S1. Mild L2-3, L3-4, L4-5 and L5-S1 intervertebral disc height loss. Discogenic endplate signal changes are seen at L5-S1. No evidence for acute fracture. However there is a chronic lucency through the right L3 facet, stable to prior CT 2-18, with corticated margins, possibly developmental ossicle or from old injury. L1-L2: Mild circumferential disc bulge at L1-2 with facet degenerative changes cause mild central canal stenosis without significant neural foraminal narrowing. L2-L3: Retrolisthesis of L2 on L3 with diffuse disc bulge, ligamentum flavum hypertrophy and facet degenerative changes cause moderate central canal stenosis and mild bilateral neural foraminal narrowing. L3-L4: Diffuse circumferential disc bulge, ligamentum flavum hypertrophy and facet degenerative changes cause mild central canal stenosis and moderate right and mild left neural foraminal narrowing. L4-L5: Anterolisthesis of L4 on L5 with diffuse disc bulge and superimposed central disc protrusion as well as facet degenerative changes cause moderate central canal stenosis, moderate to severe left and mild right neural foraminal narrowing. L5-S1: Diffuse circumferential disc bulge with ligamentum flavum hypertrophy and facet degenerative changes cause moderate central canal stenosis, mild left and [id number] right neural foraminal narrowing. IMPRESSION: No evidence for acute fracture or subluxation. Multilevel degenerative changes of the lumbar spine most prominent at L4-5 and L5-S1. Electronically signed by: Juan Mike MD (04/23/2018 2:27 PM) [facility]
== END | disposition home or self-care (01) ==
LOC: CT 09:54
PROVIDERS: ATTEND Family Medicine
DX: M51.16 Intervertebral disc disorders with radiculopathy, lumbar region (principal); M47.896 Other spondylosis, lumbar region; M48.07 Spinal stenosis, lumbosacral region; W19.XXXA Unspecified fall, initial encounter; Y93.89 Activity, other specified; Y92.89 Other specified places as the place of occurrence of the external cause; Y99.8 Other external cause status
CPT/HCPCS: 72131

== ENCOUNTER → 2018-05-01 | Outpatient (CLI) | payer MEDICARE ==
[2018-05-01 12:00] LABS: CREATININE 0.8 mg/dL (0.6-1.0); GFR 70.5
--- NOTE | 2018-05-01 13:13 | RAD ---
CT of the abdomen and pelvis without contrast, 05/01/2018: HISTORY: Fall, right-sided pain Noncontrast scans were obtained as requested. The unopacified liver is unremarkable. No gallbladder abnormality is seen. The pancreas shows no abnormality. The spleen is of normal size. There is moderate bilateral renal cortical scarring. The kidneys show no evidence of obstruction. No intrarenal calculi are identified. Moderate aortoiliac calcific plaquing is present without evidence of aneurysm. No abdominal or pelvic adenopathy is seen. The uterus is surgically absent. Colonic diverticula are present, most numerous in the sigmoid region. No paracolonic inflammatory process is seen. The bowel loops are not dilated. No free air or free fluid is evident in the abdomen or pelvis. There is diastases and atrophy of the rectus abdominis musculature with anterior bulging of the intervening fascia. The fascial thickening may be due to scarring or previous surgery. Moderate to severe multilevel degenerative changes are present in the spine. These include extensive facet joint arthropathy in the lower lumbar spine with mild anterolisthesis at L4-5. There is moderate associated central spinal stenosis at L4-5. There are degenerative changes and vacuum phenomena at both sacroiliac joints. No acute fracture is identified. IMPRESSION: 1. Moderate bilateral renal cortical scarring. 2. Colonic diverticulosis. 3. Additional chronic findings as above. 4. No acute abdominal or pelvic abnormality is detected. PQRS Compliance Statement: One or more of the following individualized dose reduction techniques were utilized for this examination: 1. Automated exposure control 2. Adjustment of the mA and/or kV according to patient size 3. Use of iterative reconstruction technique Electronically signed by: Evan Coronel MD (05/01/2018 1:09 PM) [facility]
== END | disposition home or self-care (01) ==
LOC: CT 10:48
PROVIDERS: ATTEND Family Medicine
DX: S39.011A Strain of muscle, fascia and tendon of abdomen, initial encounter (principal); I70.8 Atherosclerosis of other arteries; K57.30 Diverticulosis of large intestine without perforation or abscess without bleeding; M47.816 Spondylosis without myelopathy or radiculopathy, lumbar region; M47.818 Spondylosis without myelopathy or radiculopathy, sacral and sacrococcygeal region; M48.061 Spinal stenosis, lumbar region without neurogenic claudication; E11.22 Type 2 diabetes mellitus with diabetic chronic kidney disease; I12.9 Hypertensive chronic kidney disease with stage 1 through stage 4 chronic kidney disease, or unspecified chronic kidney disease; N18.3 Chronic kidney disease, stage 3 (moderate); Z90.710 Acquired absence of both cervix and uterus; Z79.4 Long term (current) use of insulin; W19.XXXA Unspecified fall, initial encounter; Y93.89 Activity, other specified; Y92.89 Other specified places as the place of occurrence of the external cause; Y99.8 Other external cause status
CPT/HCPCS: 36415; 74176; 82565; 84520

== ENCOUNTER 2018-09-25 12:52 | Inpatient (IN) | payer MEDICARE ==
[~2018-09-25] VITALS: Ht 160 cm; Wt 83.0 kg
[2018-09-25] MEDS ORDERED: IV NORMAL SALINE 1,000ML 1,000 ML IV SCH (13:17)
--- NOTE | 2018-09-25 13:24 | PHYS DOC ---
Past History Past Medical History: A-Fib, Anxiety, Arthritis, CAD, Constipation, COPD, CVA, Dementia, Depression, Diabetes, GERD, Heart Disease, Hypertension, Hypothyroid, Kidney Infection, [place], TIA, UTI, Other Past Surgical History: , Hysterectomy, Pacemaker, Other Alcohol Use: None Drug Use: None Adult General Chief Complaint Chief Complaint: HYPERTENSION HPI HPI Patient is a 73 year old female who presents with complaint of headache and high blood pressure. Patient states her symptoms started yesterday evening. Patient was seen by her primary doctor today and noted to have a blood pressure of approximately 160/110. Patient was given clonidine for her blood pressure and was given Toradol for treatment of headache. The patient states that she is still having headache, lightheadedness, and generalized weakness despite tr eatment. Patient was sent to the emergency department from the doctor's office for further evaluation. Denies any fever. Notes that she was hospitalized last month at [facility] and diagnosed with "mini strokes." Denies any chest pain, difficulty with speech or swallowing, vision changes, or abdominal pain. Review of Systems Review of Systems Constitutional: Denies fever or chills [] Eyes: Denies change in visual acuity, redness, or eye pain [] HENT: Denies nasal congestion or sore throat [] Respiratory: Denies cough or shortness of breath [] Cardiovascular: Denies chest pain or edema[] GI: Nausea, denies abdominal pain, vomiting, bloody stools or diarrhea [] : Denies dysuria or hematuria [] Musculoskeletal: Denies back pain or joint pain [] Integument: Denies rash or skin lesions [] Neurologic: Headache, generalized weakness[] All other systems were reviewed and found to be within normal limits, except as documented in this note. Allergies Allergies Allergies Coded Allergies Type Severity Reaction Last Updated Verified Sulfa (Sulfonamide Antibiotics) Allergy Intermediate Unknown 10/17/17 Yes dexamethasone Allergy Intermediate eye irritaion and swelling 10/17/17 Yes neomycin Allergy Intermediate eye irritaion and swelling 10/17/17 Yes polymyxin B Allergy Intermediate eye irritaion and swelling 10/17/17 Yes Physical Exam Physical Exam Constitutional: Alert, afebrile, appears in moderate discomfort. [] HENT: Normocephalic, atraumatic, bilateral external ears normal, oropharynx mo ist, no oral exudates, nose normal. [] Eyes: PERRLA, EOMI, conjunctiva normal, no discharge. [] Neck: Normal range of motion, no tenderness, supple, no stridor. [] Cardiovascular:Heart rate regular rhythm, no murmur [] Lungs & Thorax: Bilateral breath sounds clear to auscultation [] Abdomen: Bowel sounds normal, soft, no tenderness, no masses, no pulsatile masses. [] Skin: Warm, dry, no erythema, no rash. [] Back: No tenderness, no CVA tenderness. [] Extremities: No tenderness, no cyanosis, no clubbing, ROM intact, no edema. [] Neurologic: Alert and oriented X 3, normal motor function, normal sensory function, no focal deficits noted. [] Current Patient Data Vital Signs Vital Signs Date Time Temp Pulse Resp B/P (MAP) Pulse Ox O2 Delivery O2 Flow Rate FiO2 09/25/18 17:50 73 181/81 (114) 98 09/25/18 16:45 18 09/25/18 16:15 Room Air 09/25/18 12:56 98.4 Lab Results Laboratory Tests Test 09/25/18 13:58 White Blood Count 7.8 x10^3/uL Red Blood Count 3.96 x10^6/uL Hemoglobin 12.4 g/dL Hematocrit 36.7 % Mean Corpuscular Volume 93 fL Mean Corpuscular Hemoglobin 31 pg Mean Corpuscular Hemoglobin Concent 34 g/dL Red Cell Distribution Width 14.3 % Platelet Count 329 x10^3/uL Neutrophils (%) (Auto) 70 % Lymphocytes (%) (Auto) 24 % Monocytes (%) (Auto) 6 % Eosinophils (%) (Auto) 1 % Basophils (%) (Auto) 0 % Neutrophils # (Auto) 5.4 x10^3uL Lymphocytes # (Auto) 1.9 x10^3/uL Monocytes # (Auto) 0.5 x10^3/uL Eosinophils # (Auto) 0.0 x10^3/uL Basophils # (Auto) 0.0 x10^3/uL Prothrombin Time 10.0 SEC Prothromb Time International Ratio 1.0 Activated Partial Thromboplast Time 24 SEC Sodium Level 135 mmol/L Potassium Level 3.6 mmol/L Chloride Level 97 mmol/L Carbon Dioxide Level 30 mmol/L Anion Gap 8 Blood Urea Nitrogen 7 mg/dL Creatinine 0.8 mg/dL Estimated GFR (Cockcroft-Gault) 70.5 BUN/Creatinine Ratio 9 Glucose Level 107 mg/dL Calcium Level 9.2 mg/dL Magnesium Level 1.7 mg/dL Total Bilirubin 0.4 mg/dL Aspartate Amino Transf (AST/SGOT) 19 U/L Alanine Aminotransferase (ALT/SGPT) 15 U/L Alkaline Phosphatase 108 U/L Troponin I Quantitative < 0.017 ng/mL Total Protein 7.0 g/dL Albumin 3.4 g/dL Albumin/Globulin Ratio 0.9 Current Medications Medications (Trade) Dose Ordered Sig/Harmeet Route PRN Reason Start Time Stop Time Status Last Admin Dose Admin Sodium Chloride 1,000 ml @ 125 mls/hr Q8H IV 09/25/18 13:17 09/25/18 21:16 09/25/18 14:24 Prochlorperazine Edisylate (Compazine) 10 mg 1X ONCE IV 09/25/18 13:30 09/25/18 13:31 DC 09/25/18 14:24 Diphenhydramine HCl (Benadryl) 25 mg 1X ONCE IVP 09/25/18 13:30 09/25/18 13:31 DC 09/25/18 14:24 Labetalol HCl (Normodyne) 20 mg 1X ONCE IVP 09/25/18 15:00 09/25/18 15:01 DC 09/25/18 14:53 EKG EKG Interpreted by me: Heart rate 74, sinus rhythm, leftward axis, no acute ST/T- wave abnormalities present[] Radiology/Procedures Radiology/Procedures [address] [address] IMAGING REPORT Signed PATIENT: SALVATORE OLIVAREZ ACCOUNT: [id number] : 1945 LOCATION: ER AGE: 73 SEX: F EXAM STATUS: REG ER ORD. PHYSICIAN: REGINA QUINTANA MD REASON: generalized weakness, hypertension PROCEDURE: PORTABLE CHEST 1V PORTABLE CHEST 1V History: Generalized weakness, hypertension Comparison: October 26, 2017 Findings: Single view of the chest is submitted. Pericardial cardiac silhouette is borderline enlarged although unchanged. There is again right electronic cardiac device. There is no new lobar consolidation, pleural fluid, pneumothorax. Impression: 1. No acute radiographic abnormality is identified. Electronically signed by: Caitlyn Mac MD (09/25/2018 1:36 PM) [id number] DICTATED AND SIGNED BY: CAITLYN MAC MD DATE: 09/25/185 CC: SIM WISE MD; REGINA QUINTANA MD ~ [place] [address] IMAGING REPORT Signed PATIENT: SALVATORE OLIVAREZ ACCOUNT: [id number] : 1945 LOCATION: ER AGE: 73 SEX: F EXAM STATUS: REG ER ORD. PHYSICIAN: REGINA QUINTANA MD REASON: HTN, WORST MICHEL PT EVER EXPERIENCED SINCE THIS AM PROCEDURE: CT HEAD WO CONTRAST PQRS Compliance Statement: One or more of the following individualized dose reduction techniques were utilized for this examination: 1. Automated exposure control 2. Adjustment of the mA and/or kV according to patient size 3. Use of iterative reconstruction technique CT HEAD WITHOUT CONTRAST History: Hypertension worse headache patient is ever experienced since this a.m. Comparison: CT head without contrast, August 14, 2016. Technique: Axial images are obtained of the head from the skull base through the vertex without IV contrast. Findings: No mass-effect, midline shift, extra-axial fluid collection, hemorrhage, or obvious acute infarction is identified. Basilar cisterns are patent. The ventricles and sulci are prominent, consistent with age-related cerebral atrophy. There is moderate supratentorial white matter hypoattenuation. This is a nonspecific finding but is commonly due to chronic small vessel ischemic disease. Bone windows demonstrate no acute calvarial abnormality. The visualized paranasal sinuses are clear. Mastoid air cells are well aerated. IMPRESSION: 1. No acute intracranial abnormality. 2. Age-related cerebral atrophy and moderate supratentorial white matter changes probably due to chronic small vessel ischemic disease. Electronically signed by: Simon Morgan MD (09/25/2018 1:39 PM) [id number] DICTATED AND SIGNED BY: SIMON MORGAN MD DATE: 09/25/18 1249 CC: SIM WISE MD; REGINA QUINTANA MD ~ [] Course & Med Decision Making Course & Med Decision Making Pertinent Labs and Imaging studies reviewed. (See chart for details) Patient initially treated with IV Compazine and Benadryl. Despite treatment, patient continues to complain of headache and generalized weakness. Patient also noted to have continued elevated blood pressure. This was treated with IV labetalol. Patient despite treatment continues to have elevated blood pressure 170/80. Patient states that she does not feel any better at this time. CT imaging and blood work are unremarkable. Given continued symptoms, I called the patient's primary physician, Dr. Wise. He stated he'll be happy to accept patient in hospital for continued treatment of symptoms and blood pressure. Dragon Disclaimer Dragon Disclaimer This electronic medical record was generated, in whole or in part, using a voice recognition dictation system. Departure Departure: Impression: Primary Impression: Accelerated hypertension Additional Impressions: Headache Generalized weakness Disposition: ADMITTED INPATIENT Admitting Physician: Sim Wise Condition: STABLE Referrals: SIM WISE MD (PCP) Problem Qualifiers Additional Impressions: Headache Headache type: unspecified Headache chronicity pattern: unspecified pattern Intractability: intractable Qualified Codes: R51 - Headache REGINA QUINTANA MD September 25, 2018 13:24
[2018-09-25] MEDS ORDERED: PROCHLORPERAZINE 10 MG/2 ML VIAL. IV ONE (13:30)
[2018-09-25] MEDS ORDERED: diphenhydrAMINE 50 MG/ML VIAL IVP ONE (13:30)
--- NOTE | 2018-09-25 13:39 | RAD ---
PORTABLE CHEST 1V History: Generalized weakness, hypertension Comparison: October 26, 2017 Findings: Single view of the chest is submitted. Pericardial cardiac silhouette is borderline enlarged although unchanged. There is again right electronic cardiac device. There is no new lobar consolidation, pleural fluid, pneumothorax. Impression: 1. No acute radiographic abnormality is identified. Electronically signed by: Toy Thomas MD (09/25/2018 1:36 PM) [id number]
--- NOTE | 2018-09-25 13:42 | RAD ---
PQRS Compliance Statement: One or more of the following individualized dose reduction techniques were utilized for this examination: 1. Automated exposure control 2. Adjustment of the mA and/or kV according to patient size 3. Use of iterative reconstruction technique CT HEAD WITHOUT CONTRAST History: Hypertension worse headache patient is ever experienced since this a.m. Comparison: CT head without contrast, August 14, 2016. Technique: Axial images are obtained of the head from the skull base through the vertex without IV contrast. Findings: No mass-effect, midline shift, extra-axial fluid collection, hemorrhage, or obvious acute infarction is identified. Basilar cisterns are patent. The ventricles and sulci are prominent, consistent with age-related cerebral atrophy. There is moderate supratentorial white matter hypoattenuation. This is a nonspecific finding but is commonly due to chronic small vessel ischemic disease. Bone windows demonstrate no acute calvarial abnormality. The visualized paranasal sinuses are clear. Mastoid air cells are well aerated. IMPRESSION: 1. No acute intracranial abnormality. 2. Age-related cerebral atrophy and moderate supratentorial white matter changes probably due to chronic small vessel ischemic disease. Electronically signed by: Simon Morgan MD (09/25/2018 1:39 PM) [id number]
[2018-09-25 14:15] LABS: BASO % 0 % (0-3); EOS % 1 % (0-3); HEMATOCRIT 36.7 % (36.0-47.0); HEMOGLOBIN 12.4 g/dL (12.0-15.5); LYMPH # 1.9 x10^3/uL (1.0-4.8); LYMPH % 24 % (24-48); MEAN CORPUSCULAR HEMOGLOBIN 31 pg (25-35); MEAN CORPUSCULAR HGB CONC 34 g/dL (31-37); MEAN CORPUSCULAR VOLUME 93 fL (79-100); MONO # 0.5 x10^3/uL (0.0-1.1); MONO % 6 % (0-9); NEUT # 5.4 x10^3uL (1.8-7.7); NEUT % 70 % (31-73); PLATELET COUNT 329 x10^3/uL (140-400); RED BLOOD COUNT 3.96 x10^6/uL (3.50-5.40); RED CELL DISTRIBUTION WIDTH 14.3 % (11.5-14.5); WHITE BLOOD COUNT 7.8 x10^3/uL (4.0-11.0)
[2018-09-25 14:26] LABS: ALBUMIN 3.4 g/dL (3.4-5.0); ALBUMIN/GLOBULIN RATIO 0.9 (1.0-1.7); CALCIUM 9.2 mg/dL (8.5-10.1); CREATININE 0.8 mg/dL (0.6-1.0); GFR 70.5; MAGNESIUM 1.7 mg/dL (1.8-2.4); POTASSIUM 3.6 mmol/L (3.5-5.1); TOTAL BILIRUBIN 0.4 mg/dL (0.2-1.0)
[2018-09-25] MEDS ORDERED: LABETALOL 20 MG/4 ML DISP.SYRIN. IVP ONE (15:00)
[2018-09-25] MEDS ORDERED: CYCLOBENZAPRINE HCL 10 MG PO PRN (18:00)
[2018-09-25 19:08] VITALS: BP 184/82
[2018-09-25] MEDS ORDERED: cloNIDine TTS-2 1 PATCH PATCH TD SCH (19:30)
[2018-09-25] MEDS ORDERED: CARBIDOPA/LEVODOPA 25/100MG TABLET PO SCH (21:00)
[2018-09-25] MEDS ORDERED: PRIMIDONE 50 MG TABLET PO SCH (21:00)
[2018-09-25] MEDS ORDERED: oxyCODONE ER 20 MG TAB.ER.12H PO SCH (21:00)
[2018-09-25] MEDS ORDERED: AMOXAPINE PO SCH (21:00)
[2018-09-25] MEDS ORDERED: busPIRone 15 MG TABLET. PO SCH (21:00)
[2018-09-25] MEDS ORDERED: rOPINIRole 1 MG TABLET. PO SCH (21:00)
[2018-09-25] MEDS ORDERED: levETIRAcetam 500 MG TABLET PO SCH (21:00)
[2018-09-25] MEDS: MELATONIN 3 MG TABLET PO SCH (22:06)
[2018-09-25] MEDS: ZOLPIDEM 5 MG TABLET. PO SCH (22:07)
[2018-09-25] MEDS: LORazepam 0.5 MG TABLET PO SCH (22:07)
[2018-09-25] MEDS: DONEPEZIL HCL 10 MG TABLET PO SCH (22:07)
[2018-09-25] MEDS: DULoxetine HCL 60 MG CAPSULE.DR PO SCH (22:08)
[2018-09-25] MEDS: MAGNESIUM OXIDE 400 MG TABLET PO SCH (22:08)
[2018-09-25] MEDS: busPIRone 15 MG TABLET. PO SCH (22:08)
[2018-09-25] MEDS: LACTOBACILLUS RHAMNOSUS GG 1 CAPSULE. PO SCH (22:08)
[2018-09-25] MEDS: CLOPIDOGREL BISULFATE 75 MG TABLET PO SCH (22:09)
[2018-09-25] MEDS: MIRTAZAPINE 30 MG TABLET PO SCH (22:09)
[2018-09-25] MEDS: oxyCODONE IR 5 MG TABLET PO SCH (22:10)
[2018-09-25] MEDS: CARBIDOPA/LEVODOPA 25/100MG TABLET PO SCH (22:10)
[2018-09-25] MEDS: LIDOCAINE (700MG/PATCH) PATCH. TD SCH (22:10)
[2018-09-25 23:02] VITALS: BP 167/68
[2018-09-26] MEDS ORDERED: CLON0.1T12 PERCUT (02:10)
[2018-09-26] MEDS ORDERED: GABA-586 PO (02:10)
[2018-09-26] MEDS ORDERED: ASPI-630 PO (02:10)
[2018-09-26] MEDS ORDERED: ATOR20TA58 PO (02:10)
[2018-09-26] MEDS ORDERED: MELO7.5T29 PO (02:10)
[2018-09-26] MEDS ORDERED: METH-38 PO (02:10)
[2018-09-26] MEDS ORDERED: METO10TA81 PO (02:10)
[2018-09-26] MEDS ORDERED: PSYL0.527 PO (02:10)
[2018-09-26] MEDS ORDERED: POTA10TA10 PO (02:16)
[2018-09-26] MEDS: CARBIDOPA/LEVODOPA 25/100MG TABLET PO SCH ×7 (03:00→17:51)
[2018-09-26 05:27] VITALS: BP 151/79
[2018-09-26] MEDS: LEVOTHYROXINE 150 MCG TABLET PO SCH (06:27)
--- NOTE | 2018-09-26 06:37 | EKG ---
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
[2018-09-26] MEDS ORDERED: CARVEDILOL 12.5 MG TABLET PO SCH (08:00)
[2018-09-26] MEDS: METHOCARBAMOL 500 MG TABLET PO SCH ×3 (08:12→20:39)
[2018-09-26] MEDS: oxyCODONE IR 5 MG TABLET PO SCH ×3 (08:14→20:39)
[2018-09-26] MEDS: ASPIRIN 81 MG TAB.CHEW PO SCH (08:15)
[2018-09-26] MEDS: CHOLECALCIFEROL (VITAMIN D3) 1,000 UNIT TABLET PO SCH (08:15)
[2018-09-26] MEDS: LORazepam 0.5 MG TABLET PO SCH ×4 (08:15→20:40)
[2018-09-26] MEDS: MAGNESIUM OXIDE 400 MG TABLET PO SCH ×2 (08:15→20:40)
[2018-09-26] MEDS: metFORMIN 500 MG TABLET PO SCH ×2 (08:15→17:52)
[2018-09-26] MEDS: PANTOPRAZOLE 40 MG TABLET. PO SCH (08:15)
[2018-09-26] MEDS: GABAPENTIN 300 MG CAPSULE. PO SCH ×3 (08:16→20:40)
[2018-09-26] MEDS: ATORVASTATIN CALCIUM 20 MG TABLET PO SCH (08:16)
[2018-09-26] MEDS: LACTOBACILLUS RHAMNOSUS GG 1 CAPSULE. PO SCH ×2 (08:16→20:40)
[2018-09-26] MEDS: VITAMIN E. 400 UNIT CAPSULE. PO SCH (08:16)
[2018-09-26] MEDS: busPIRone 15 MG TABLET. PO SCH ×3 (08:17→20:40)
[2018-09-26] MEDS: DULoxetine HCL 60 MG CAPSULE.DR PO SCH ×2 (08:17→20:39)
[2018-09-26] MEDS: MELOXICAM 7.5 MG TABLET PO SCH (08:18)
[2018-09-26] MEDS: POTASSIUM CHLORIDE 10 MEQ TABLET.ER. PO SCH (08:18)
[2018-09-26] MEDS: METOCLOPRAMIDE 10 MG TABLET PO SCH ×4 (08:18→20:39)
[2018-09-26] MEDS: PSYLLIUM SEED (WITH SUGAR) PACKET. PO SCH ×2 (08:18→20:39)
[2018-09-26] MEDS: FERROUS SULFATE 325 MG TABLET. PO SCH (08:18)
[2018-09-26] MEDS: MIRABEGRON 25 MG TAB.ER.24H PO SCH (08:19)
--- NOTE | 2018-09-26 08:46 | PDOC2 ---
CARDIAC CONSULT DATE OF CONSULT Date Of Consult DATE: 09/26/18 TIME: 08:40 REASON FOR CONSULT Reason for Consult Uncontrolled hypertension REFERRING PHYSICIAN Referring Physician Dr. Ruiz SOURCE Source: Chart review, Patient HPI History of Present Illness This is a 73 yo female who presented secondary to headache and hypertension. Patient reports experiencing head congestion, cough for the last week. Developed severe MICHEL over the last couple of days. Checks blood pressure daily and has been running between 150-190. Went to see Primary Care Provider for symptoms. Blood pressure noted to be elevated. Was as high as 220/120. Was referred to the ED for further evaluation and treatment. Clonidine patch was added 2 weeks ago. Has clonidine PRN at home for HTN. Amarilis any chest pain, palpitations, dizziness, diaphoresis, or nausea/vomiting. PAST MEDICAL HISTORY Past Medical History Cardiovascular: AFIB (?), CAD, HTN, Hyperlipidemia, Valve insufficiency (MR), Other (cardiomyopathy) Pulmonary: COPD, Pneumonia CENTRAL NERVOUS SYSTEM: CVA, Seizure, TIA, Other (Parkinsons) GI: Constipation Heme/Onc: Other (Factor V leiden) Musculoskeletal: low back pain, Osteoarthritis Rheumatologic: No pertinent hx Infectious disease: No pertinent hx ENT: Other (cataract; glaucoma) Renal/: UTI Endocrine: Hypothyroidism PAST SURGICAL HISTORY Past Surgical History Pacemaker, Cataract Removal, (x3), Hernia Repair, Total knee replacement (bilateral), Tonsillectomy, Hysterectomy, Colectomy (chinmay), Other (nasal septum repair; PCI/stent 2015; bladder surgery; bilateral eye surgery, capal tunnel release; back surgery) FAMILY HISTORY Family History: Heart Disease SOCIAL HISTORY Smoke: No ALCOHOL: none Drugs: None Lives: with Family CURRENT MEDICATIONS Current Medications Current Medications Sodium Chloride 1,000 ml @ 50 mls/hr Q20H IV Last administered on 09/25/18at 14:24; Start 09/25/18 at 13:17; Stop 09/26/18 at 00:04; Status DC Prochlorperazine Edisylate (Compazine) 10 mg 1X ONCE IV Last administered on 09/25/18at 14:24; Start 09/25/18 at 13:30; Stop 09/25/18 at 13:31; Status DC Diphenhydramine HCl (Benadryl) 25 mg 1X ONCE IVP Last administered on 09/25/18at 14:24; Start 09/25/18 at 13:30; Stop 09/25/18 at 13:31; Status DC Labetalol HCl (Normodyne) 20 mg 1X ONCE IVP Last administered on 09/25/18at 14:53; Start 09/25/18 at 15:00; Stop 09/25/18 at 15:01; Status DC Carbidopa/Levodopa (Sinemet 25/100) 1 tab TID PO ; Start 09/25/18 at 21:00; Stop 09/25/18 at 21:00; Status DC Vitamin D (Vitamin D3) 1,000 unit DAILY PO Last administered on 09/26/18at 08:15; Start 09/26/18 at 09:00 Clopidogrel Bisulfate (Plavix) 75 mg HS PO Last administered on 09/25/18at 22:09; Start 09/25/18 at 21:00 Mirtazapine (Remeron) 30 mg QHS PO Last administered on 09/25/18at 22:09; Start 09/25/18 at 21:00 Zolpidem Tartrate (Ambien) 5 mg QHS PO Last administered on 09/25/18at 22:07; Start 09/25/18 at 21:00 Non-Formulary Medication (Amoxapine ) 200 mg QHS PO ; Start 09/25/18 at 21:00; Stop 09/26/18 at 07:27; Status DC Aspirin (Children'S Aspirin) 81 mg DAILYWBKFT PO Last administered on 09/26/18at 08:15; Start 09/26/18 at 08:00 Lactobacillus Rhamnosus (Culturelle) 1 cap BID PO Last administered on 09/26/18at 08:16; Start 09/25/18 at 21:00 Buspirone HCl (Buspar) 15 mg BID PO ; Start 09/25/18 at 21:00; Stop 09/25/18 at 21:00; Status DC Carvedilol (Coreg) 12.5 mg BIDWMEALS PO ; Start 09/26/18 at 08:00; Stop 09/26/18 at 08:00; Status DC Non-Formulary Medication (Cyclobenzaprine Hcl ) 10 mg PRN Q6HRS PRN PO MUSCLE SPASMS; Start 09/25/18 at 18:00; Stop 09/25/18 at 20:49; Status DC Diltiazem HCl (Cardizem 24hr Cd) 180 mg DAILY PO Last administered on 09/26/18 08:17; Start 09/26/18 at 09:00 Donepezil HCl (Aricept) 10 mg QHS PO Last administered on 09/25/18at 22:07; Start 09/25/18 at 21:00 Duloxetine HCl (Cymbalta) 60 mg BID PO Last administered on 09/26/18 08:17; Start 09/25/18 at 21:00 Pantoprazole Sodium (Protonix) 40 mg DAILYAC PO Last administered on 09/26/18 08:15; Start 09/26/18 at 07:30 Ferrous Sulfate (Feosol) 325 mg DAILYWBKFT PO Last administered on 09/26/18 08:18; Start 09/26/18 at 08:00 Levetiracetam (Keppra) 1,000 mg BID PO ; Start 09/25/18 at 21:00; Stop 09/26/18 at 07:27; Status DC Levothyroxine Sodium (Synthroid) 150 mcg DAILY06 PO Last administered on 09/26/18 06:27; Start 09/26/18 at 06:00 Lidocaine (Lidoderm) 1 patch QHS TD Last administered on 09/25/18 22:10; Start 09/25/18 at 21:00 Lorazepam (Ativan) 0.5 mg QID PO Last administered on 09/26/18 08:15; Start 09/25/18 at 21:00 Magnesium Oxide (Magnesium Oxide) 400 mg BID PO Last administered on 09/26/18 08:15; Start 09/25/18 at 21:00 Melatonin 9 mg QHS PO Last administered on 09/25/18 22:06; Start 09/25/18 at 21:00 Metformin HCl (Glucophage) 500 mg BIDWMEALS PO Last administered on 09/26/18 08:15; Start 09/26/18 at 08:00 Non-Formulary Medication (Methylnaltrexone [place] (Relistor)) 150 mg DAILY PO ; Start 09/26/18 at 09:00; Stop 09/26/18 at 09:00; Status DC Mirabegron (Myrbetriq) 50 mg DAILY PO Last administered on 5/23/19at 08:19; Start 09/26/18 at 09:00 Oxycodone HCl (OxyCONTIN) 20 mg Q12HR PO ; Start 09/25/18 at 21:00; Stop 09/25/18 at 21:00; Status DC Primidone (Mysoline) 100 mg TID PO ; Start 09/25/18 at 21:00; Stop 09/25/18 at 21:01; Status DC Ropinirole HCl (Requip) 1 mg TID PO ; Start 09/25/18 at 21:00; Stop 09/26/18 at 07:27; Status DC Vitamin E 400 unit DAILY PO Last administered on 09/26/18at 08:16; Start 09/26/18 at 09:00 Clonidine HCl (Catapres Tts-2) 1 patch WEEKLY TD ; Start 09/25/18 at 19:30; Stop 09/25/18 at 20:49; Status DC Clonidine HCl (Catapres Tts-2) 1 patch WEEKLY TD ; Start 09/29/18 at 09:00 Oxycodone HCl (Roxicodone) 10 mg DAILY@0900,1200,2100 PO Last administered on 09/26/18at 08:14; Start 09/25/18 at 21:00 Carbidopa/Levodopa (Sinemet 25/100) 1 tab Q3HRS PO Last administered on at 08:15; Start 09/25/18 at 21:00; Stop 09/26/18 at 08:33; Status DC Buspirone HCl (Buspar) 15 mg DAILY@0900,1200,2100 PO Last administered on 09/26/18at 08:17; Start 09/25/18 at 21:00 Atorvastatin Calcium (Lipitor) 20 mg DAILY PO Last administered on 09/26/18at 08:16; Start 09/26/18 at 09:00 Clonidine HCl (Catapres) 0.2 mg QSU PO ; Start 09/29/18 at 16:00; Stop 09/29/18 at 16:00; Status DC Gabapentin (Neurontin) 300 mg TID PO Last administered on 09/26/18at 08:16; Start 09/26/18 at 09:00 Non-Formulary Medication (Aspirin ) 81 mg DAILY PO ; Start 09/26/18 at 09:00; Stop 09/26/18 at 09:00; Status DC Meloxicam (Mobic) 7.5 mg DAILY PO Last administered on 09/26/18 08:18; Start 09/26/18 at 09:00 Methocarbamol (Robaxin) 750 mg TID PO Last administered on 09/26/18 08:12; Start 09/26/18 at 09:00 Metoclopramide HCl (Reglan) 10 mg TIDACHC PO Last administered on 09/26/18 08:18; Start 09/26/18 at 08:00 Potassium Chloride (Klor-Con) 10 meq DAILYWBKFT PO Last administered on 09/26/18 08:18; Start 09/26/18 at 08:00 Psyllium Hydrophilic Mucilloid (Metamucil) 1 pkt BID PO Last administered on 09/26/18 08:18; Start 09/26/18 at 09:00 Carbidopa/Levodopa (Sinemet 25/100) 3 tab 0800,1200,1800 PO Last administered on 09/26/18at 08:30; Start 09/26/18 at 08:30 Active Scripts Active Reported Potassium Chloride 10 Meq Tablet.er 10 Meq PO DAILY Reglan (Metoclopramide Hcl) 10 Mg Tablet 10 Mg PO TIDWMEALHC Robaxin-750 (Methocarbamol) 750 Mg Tablet 1 Tab PO TID Atorvastatin Calcium 20 Mg Tablet 1 Tab PO DAILY Meloxicam 7.5 Mg Tablet 7.5 Mg PO DAILY Gabapentin (Gabapentin) 300 Mg Capsule 300 Mg PO TID Fiber (Psyllium Husk) 0.52 Gm Capsule 0.52 Gm PO BID Catapres (Clonidine Hcl) 0.1 Mg Tablet 0.2 Mg PERCUT QSU Aspirin 81 Mg Tab.chew 81 Mg PO DAILY Align (Bifidobacterium Infantis) 4 Mg Capsule 4 Mg PO DAILY LAST DOSE GIVEN: DATE:TODAY TIME:MORNING NEXT DOSE DUE: DATE:TOMORROW TIME:MORNING Aricept (Donepezil Hcl) 10 Mg Tablet 10 Mg PO HS LAST DOSE GIVEN: DATE:YESTERDAY TIME:BEDTIME NEXT DOSE DUE: DATE:TODAY TIME:BEDTIME Diltiazem 24Hr Cd (Diltiazem HCl) 180 Mg Cap.er.24h 180 Mg PO DAILY LAST DOSE GIVEN: DATE:TODAY TIME:MORNING NEXT DOSE DUE: DATE:TOMORROW TIME:MORNING Cymbalta (Duloxetine Hcl) 60 Mg Capsule.dr 60 Mg PO BID LAST DOSE GIVEN: DATE: TIME:MORNING NEXT DOSE DUE: DATE: TIME:BEDTIME Oxycodone Hcl Extend.release (Oxycodone Hcl) 10 Mg Tablet 2 Tab PO TID LAST DOSE GIVEN: DATE: TIME: AM NEXT DOSE DUE: DATE: TIME: PM Sinemet 25-100 Mg Tablet (Carbidopa/Levodopa) 1 Each Tablet 3 Tab PO TIDWMEALS LAST DOSE GIVEN: DATE: TIME: AM NEXT DOSE DUE: DATE: TIME: AFTERNOON Zolpidem Tartrate 5 Mg Tablet 1 Tab PO QHS LAST DOSE GIVEN: DATE: YES TIME: AT BEDTIME NEXT DOSE DUE: DATE: TIME: AT BEDTIME Magnesium Oxide 400 Mg Tablet 1 Tab PO DAILY LAST DOSE GIVEN: DATE: TIME: AM NEXT DOSE DUE: DATE: TIME: PM Slow Fe (Ferrous Sulfate) 142 Mg Tablet.er 142 Mg PO DAILY LAST DOSE GIVEN: DATE: TIME: AM NEXT DOSE DUE: DATE: ORR TIME: AM Vitamin E 100 Unit Capsule 100 Unit PO DAILY LAST DOSE GIVEN: DATE: TIME: AM NEXT DOSE DUE: DATE: TIME: AM Vitamin D3 (Cholecalciferol (Vitamin D3)) 1,000 Unit Tablet 2 Tab PO DAILY LAST DOSE GIVEN: DATE: TIME: AM NEXT DOSE DUE: DATE: TIME: AM Melatonin 3 Mg Tablet 10 Mg PO HS LAST DOSE GIVEN: DATE: YES TIME: AT BEDTIME NEXT DOSE DUE: DATE: TIME: AT BEDTIME Levothyroxine Sodium 150 Mcg Tablet 1 Tab PO DAILY LAST DOSE GIVEN: DATE: TODAY TIME: AM NEXT DOSE DUE: DATE: TIME: AM Nexium Capsule (Esomeprazole Magnesium) 40 Mg Capsule.dr 1 Cap PO DAILY LAST DOSE GIVEN: DATE: TIME: AM NEXT DOSE DUE: DATE: TIME: AM Clopidogrel (Clopidogrel Bisulfate) 75 Mg Tablet 1 Tab PO HS LAST DOSE GIVEN: DATE: YESTER TIME: BEDTIME NEXT DOSE DUE: DATE: TIME: BEDTIME Mirtazapine 30 Mg Tablet 1 Tab PO QHS LAST DOSE GIVEN: DATE: YES TIME: AT BEDTIME NEXT DOSE DUE: DATE: TODAY TIME: AT BEDTIME Lidoderm (Lidocaine) 700 Mg Adh..patch 1 Patch TP HS LAST DOSE GIVEN: DATE: YESTERDAY TIME: AT BEDTIME NEXT DOSE DUE: DATE: TODAY TIME: AT BEDTIME Lorazepam 0.5 Mg Tablet 0.5 Mg PO QID LAST DOSE GIVEN: DATE: TIME: AM NEXT DOSE DUE: DATE: TODAY TIME: AFTERNOON Buspirone Hcl 15 Mg Tablet 15 Mg PO TID LAST DOSE GIVEN: DATE: TODAY TIME: AM NEXT DOSE DUE: DATE: TODAY TIME: PM Metformin Hcl 500 Mg Tablet 500 Mg PO BIDWMEALS LAST DOSE GIVEN: DATE: TODAY TIME: AT BREAKFAST NEXT DOSE DUE: DATE: TODAY TIME: AT DINNER ALLERGIES Allergies: Coded Allergies: Sulfa (Sulfonamide Antibiotics) (Verified Allergy, Intermediate, Unknown, 10/17/17) dexamethasone (Verified Allergy, Intermediate, eye irritaion and swelling, 10/17/17) neomycin (Verified Allergy, Intermediate, eye irritaion and swelling, 10/17/17) polymyxin B (Verified Allergy, Intermediate, eye irritaion and swelling, 10/17/17) ROS Review of Systems 14 point ROS conducted with pertinent positives noted above in HPI PHYSICAL EXAM General: Alert, Oriented X3, Cooperative, No acute distress HEENT: Atraumatic, Mucous membr. moist/pink Lungs: Clear to auscultation, Other (diminished bases) Heart: Regular rate, Normal S1, Normal S2 Abdomen: Soft, No tenderness Extremities: No edema, Normal pulses Skin: No rashes, No breakdown Neuro: Normal speech, Sensation intact Psych/Mental Status: Mental status NL, Mood NL MUSCULOSKELETAL: Osteoarthritic changes both hands VITALS Vital Signs Vital Signs Date Time Temp Pulse Resp B/P (MAP) Pulse Ox O2 Delivery O2 Flow Rate FiO2 09/26/18 08:17 77 151/79 09/26/18 07:42 Room Air 09/26/18 05:27 98.1 24 93 LABS LABS Laboratory Tests Test 09/25/18 13:58 09/26/18 07:33 White Blood Count 7.8 x10^3/uL (4.0-11.0) Red Blood Count 3.96 x10^6/uL (3.50-5.40) Hemoglobin 12.4 g/dL (12.0-15.5) Hematocrit 36.7 % (36.0-47.0) Mean Corpuscular Volume 93 fL (79-100) Mean Corpuscular Hemoglobin 31 pg (25-35) Mean Corpuscular Hemoglobin Concent 34 g/dL (31-37) Red Cell Distribution Width 14.3 % (11.5-14.5) Platelet Count 329 x10^3/uL (140-400) Neutrophils (%) (Auto) 70 % (31-73) Lymphocytes (%) (Auto) 24 % (24-48) Monocytes (%) (Auto) 6 % (0-9) Eosinophils (%) (Auto) 1 % (0-3) Basophils (%) (Auto) 0 % (0-3) Neutrophils # (Auto) 5.4 x10^3uL (1.8-7.7) Lymphocytes # (Auto) 1.9 x10^3/uL (1.0-4.8) Monocytes # (Auto) 0.5 x10^3/uL (0.0-1.1) Eosinophils # (Auto) 0.0 x10^3/uL (0.0-0.7) Basophils # (Auto) 0.0 x10^3/uL (0.0-0.2) Prothrombin Time 10.0 SEC (9.4-11.4) Prothromb Time International Ratio 1.0 (0.9-1.1) Activated Partial Thromboplast Time 24 SEC (23-33) Sodium Level 135 mmol/L (136-145) Potassium Level 3.6 mmol/L (3.5-5.1) Chloride Level 97 mmol/L (98-107) Carbon Dioxide Level 30 mmol/L (21-32) Anion Gap 8 (6-14) Blood Urea Nitrogen 7 mg/dL (7-20) Creatinine 0.8 mg/dL (0.6-1.0) Estimated GFR (Cockcroft-Gault) 70.5 BUN/Creatinine Ratio 9 (6-20) Glucose Level 107 mg/dL (70-99) Calcium Level 9.2 mg/dL (8.5-10.1) Magnesium Level 1.7 mg/dL (1.8-2.4) Total Bilirubin 0.4 mg/dL (0.2-1.0) Aspartate Amino Transf (AST/SGOT) 19 U/L (15-37) Alanine Aminotransferase (ALT/SGPT) 15 U/L (14-59) Alkaline Phosphatase 108 U/L (46-116) Troponin I Quantitative < 0.017 ng/mL (0-0.055) Total Protein 7.0 g/dL (6.4-8.2) Albumin 3.4 g/dL (3.4-5.0) Albumin/Globulin Ratio 0.9 (1.0-1.7) Glucose (Fingerstick) 135 mg/dL (70-99) ECHOCARDIOGRAM Echocardiogram <Conclusion> The left ventricular systolic function is normal and the ejection fraction is within normal range. The Ejection Fraction is >55%. There is normal LV segmental wall motion. There is a pacemaker in the RV/RA. Doppler and Color Flow revealed trace to mild tricuspid regurgitation with an estimated PAP of 36 mmHg. DATE: 08/13/18 1614 ASSESSMENT/PLAN Assessment/Plan 1. Headache 2. Accelerated hypertension; remains elevated 3. CAD s/p PCI/stent to PLB. clinically stable. Recent echo with preserved LV systolic function with an EF of >55. 4. Hyperlipidemia; statin 5. PAFIB: maintaining SR 6. SSS s/p PPM ([place]) 7. Hypomagnesemia 8. 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
[2018-09-26] MEDS ORDERED: LISINOPRIL 20 MG TABLET PO SCH ×2 (09:00→09:45)
[2018-09-26] MEDS ORDERED: NON FORMULARY ITEM (Methylnaltrexone Bromide (Relistor) 150 MG) PO SCH (09:00)
[2018-09-26] MEDS ORDERED: NON FORMULARY ITEM (Aspirin 81 MG) PO SCH (09:00)
[2018-09-26] MEDS ORDERED: hydrALAZINE 20 MG/ML VIAL. IV PRN (09:45)
[2018-09-26 10:42] VITALS: BP 143/81
[2018-09-26 15:22] VITALS: BP 151/84
[2018-09-26 19:41] VITALS: BP 163/78
[2018-09-26] MEDS: ZOLPIDEM 5 MG TABLET. PO SCH (20:38)
[2018-09-26] MEDS: MELATONIN 3 MG TABLET PO SCH (20:38)
[2018-09-26] MEDS: CLOPIDOGREL BISULFATE 75 MG TABLET PO SCH (20:39)
[2018-09-26] MEDS: DONEPEZIL HCL 10 MG TABLET PO SCH (20:40)
[2018-09-26] MEDS: LIDOCAINE (700MG/PATCH) PATCH. TD SCH (20:40)
[2018-09-26] MEDS: MIRTAZAPINE 30 MG TABLET PO SCH (20:40)
[2018-09-26 22:17] VITALS: BP 150/78
--- NOTE | 2018-09-27 04:52 | PN ---
DATE: 09/26/2018 SUBJECTIVE: A 73-year-old female with severe headache and hypertensive urgency. The patient has been adjusted on her medications. Her headache is still present, but not nearly as bad as it was. Cardiology has seen the patient and made several timely suggestions about her situation there. In any case, the patient is resting fairly comfortably. PHYSICAL EXAMINATION: VITAL SIGNS: Her blood pressure is down to 150/80, respiratory rate 20, but pulse is gone from 70-120. Otherwise, blood sugars are stable. GENERAL: The patient otherwise is resting fairly comfortably. LUNGS: Clear. CARDIOVASCULAR: Regular sinus rhythm. ABDOMEN: Soft, nontender. EXTREMITIES: No clubbing, cyanosis or edema. NEUROLOGIC: Intact. IMPRESSION: Therefore of the situation with her hypertensive urgency is severe headache. PLAN: Continue to monitor her accordingly and make further evaluation on her for her blood pressure and pulse rate now. DUY WISE MD DR: GERSON/richard JOB#: [id number] / [id number]
[2018-09-27 05:15] VITALS: BP 163/81
[2018-09-27 05:21] LABS: BACTERIA,URINE 0 /HPF (0-FEW); BILIRUBIN,URINE NEG (NEG); CLARITY,URINE CLEAR; COLOR,URINE YELLOW; GLUCOSE,URINE NEG (NEG); NITRITE,URINE NEG (NEG); RBC,URINE OCC /HPF (0-2); SQUAMOUS EPITHELIAL CELL,UR OCC /LPF; UROBILINOGEN,URINE 0.2 mg/dL (0.2 mg/dL); WBC,URINE OCC /HPF (0-4)
[2018-09-27] MEDS: LEVOTHYROXINE 150 MCG TABLET PO SCH (06:12)
[2018-09-27] MEDS: PSYLLIUM SEED (WITH SUGAR) PACKET. PO SCH (08:23)
[2018-09-27] MEDS: DULoxetine HCL 60 MG CAPSULE.DR PO SCH (08:24)
[2018-09-27] MEDS: METHOCARBAMOL 500 MG TABLET PO SCH (08:24)
[2018-09-27] MEDS: CHOLECALCIFEROL (VITAMIN D3) 1,000 UNIT TABLET PO SCH (08:25)
[2018-09-27] MEDS: busPIRone 15 MG TABLET. PO SCH (08:25)
[2018-09-27] MEDS: ATORVASTATIN CALCIUM 20 MG TABLET PO SCH (08:26)
[2018-09-27] MEDS: MIRABEGRON 25 MG TAB.ER.24H PO SCH (08:26)
[2018-09-27] MEDS: FERROUS SULFATE 325 MG TABLET. PO SCH (08:26)
[2018-09-27] MEDS: MELOXICAM 7.5 MG TABLET PO SCH (08:26)
[2018-09-27] MEDS: POTASSIUM CHLORIDE 10 MEQ TABLET.ER. PO SCH (08:26)
[2018-09-27] MEDS: LORazepam 0.5 MG TABLET PO SCH (08:26)
[2018-09-27] MEDS: VITAMIN E. 400 UNIT CAPSULE. PO SCH (08:26)
[2018-09-27] MEDS: LACTOBACILLUS RHAMNOSUS GG 1 CAPSULE. PO SCH (08:26)
[2018-09-27] MEDS: ASPIRIN 81 MG TAB.CHEW PO SCH (08:27)
[2018-09-27] MEDS: oxyCODONE IR 5 MG TABLET PO SCH (08:27)
[2018-09-27] MEDS: metFORMIN 500 MG TABLET PO SCH (08:27)
[2018-09-27] MEDS: PANTOPRAZOLE 40 MG TABLET. PO SCH (08:27)
[2018-09-27] MEDS: MAGNESIUM OXIDE 400 MG TABLET PO SCH (08:27)
[2018-09-27] MEDS: METOCLOPRAMIDE 10 MG TABLET PO SCH (08:27)
[2018-09-27] MEDS: GABAPENTIN 300 MG CAPSULE. PO SCH (08:30)
[2018-09-27] MEDS: CARBIDOPA/LEVODOPA 25/100MG TABLET PO SCH (08:32)
[2018-09-27] MEDS ORDERED: LISINOPRIL 20 MG TABLET PO SCH (09:00)
[2018-09-27] MEDS ORDERED: CLON1PAT2 TD (09:32)
[2018-09-27] MEDS ORDERED: NYST15PO9 TP (09:39)
[2018-09-27] MEDS ORDERED: CLON0.1T PO (09:41)
[2018-09-27 10:47] VITALS: BP 137/81
[2018-09-27] MEDS ORDERED: LISI-334 PO (10:56)
[2018-09-29] MEDS ORDERED: cloNIDine TTS-2 1 PATCH PATCH TD SCH (09:00)
[2018-09-29] MEDS ORDERED: cloNIDine HCL 0.1 MG TABLET PO SCH (16:00)
--- NOTE | 2018-10-01 10:55 | CARD ---
MR#: [id number] Date of Study: 09/27/2018 Ordering Physician: DUY WISE, Referring Physician: DUY WISE, Tech: Koki Bauman APPROVED REPORT EXAM: Two-dimensional and M-mode echocardiogram with Doppler and color Doppler. Other Information Quality : AverageHR: 85bpm Rhythm : NSR INDICATION COPD Hypertension/HCVD RISK FACTORS Hypertension Hyperlipidemia Diabetes Previous smoker 2D DIMENSIONS RVDd3.1 (2.9-3.5cm)Left Atrium(2D)4.5 (1.6-4.0cm) IVSd1.4 (0.7-1.1cm)Aortic Root(2D)2.8 (2.0-3.7cm) LVDd4.9 (3.9-5.9cm)LVOT Diameter2.2 (1.8-2.4cm) PWd1.2 (0.7-1.1cm)LVDs2.9 (2.5-4.0cm) FS (%) 40.8 %SV82.2 ml LVEF(%)71.5 (>50%) Aortic Valve AoV Peak Justin.156.3cm/sAoV VTI32.2cm AO Peak GR.9.8mmHgLVOT Peak Justin.137.3cm/s LVOT VTI 29.99cmAO Mean GR.5mmHg JAMIA (VMAX)3.17de0UFW (VTI)3.57cm2 Mitral Valve MV E Xyhnwwtt94.3cm/sMV DECEL CLGP089lh MV A Kjwzqyzr914.6cm/sE/A Ratio0.6 Pulmonary Valve PV Peak Dxstfmza413.8cm/sPV Peak Grad.6mmHg Tricuspid Valve TR P. Bklvadme084uv/sRAP VXGPKBTV7ssIk TR Peak Gr.46blWwZCMT62uqVg Pulmonary Vein S1 Pcxolerl04.6cm/sD2 Dcngqqjo92.4cm/s LEFT VENTRICLE The left ventricle is normal size. There is moderate concentric left ventricular hypertrophy. The lef t ventricular systolic function is normal. The Ejection Fraction is 60%. There is normal LV segmental wall motion. Transmitral Doppler flow pattern is Grade I-abnormal relaxation pattern. RIGHT VENTRICLE The right ventricle is normal size. There is normal right ventricular wall thickness. The right ventr icular systolic function is normal. ATRIA The left atrium is borderline dilated. The right atrium size is normal. The interatrial septum is int act with no evidence for an atrial septal defect or patent foramen ovale as noted on 2-D or Doppler i maging. AORTIC VALVE The aortic valve is normal in structure and function. Doppler and Color Flow revealed trace aortic re gurgitation. There is no significant aortic valvular stenosis. MITRAL VALVE The mitral valve is normal in structure and function. There is no evidence of mitral valve prolapse. There is no mitral valve stenosis. Doppler and Color-flow revealed trace mitral regurgitation. TRICUSPID VALVE The tricuspid valve is normal in structure and function. Doppler and Color Flow revealed trace tricus pid regurgitation with an estimated PAP of 40 mmHg. There is no tricuspid valve stenosis. PULMONIC VALVE The pulmonic valve is not well visualized. Doppler and Color Flow revealed no pulmonic valvular regur gitation. GREAT VESSELS The aortic root is normal in size. The IVC is normal in size and collapses >50% with inspiration. PERICARDIAL EFFUSION There is no evidence of significant pericardial effusion. Critical Notification Critical Value: No <Conclusion> The left ventricular systolic function is normal. The Ejection Fraction is 60%. There is normal LV segmental wall motion. Transmitral Doppler flow pattern is Grade I-abnormal relaxation pattern. Trace mitral regurgitation. Trace tricuspid regurgitation with an estimated PAP of 40 mmHg. There is no evidence of significant pericardial effusion. Signed by : Feliberto Evans, Electronically Approved : 09/27/2018 11:25:05
--- NOTE | 2018-10-08 02:52 | DS ---
DATE OF DISCHARGE: 09/27/2018 HOSPITAL COURSE: The patient had hypertensive urgency, severe headache. The patient has been adjusted by Cardiology, made several suggestions. The patient's blood pressure did come down, although she did have some sinus tachycardia. The patient otherwise her last vital signs showed 137/80, respiratory rate 20, pulse in the 80s, afebrile. The patient was discharged home. See EMRAD. Low sodium diet. Decreased activity and follow up with her airway traffic controller as soon as possible as an outpatient. DUY WISE MD DR: GERSON/richard JOB#: [id number] / [id number]
== END 2018-09-27 11:00 | disposition home health service (06) | DRG 305 ==
LOC: ER 12:52 → 1 SOUTH 16:26
PROVIDERS: ADMIT Family Medicine; ATTEND Family Medicine
DX: I16.0 Hypertensive urgency (principal); I42.9 Cardiomyopathy, unspecified; I48.91 Unspecified atrial fibrillation; J44.9 Chronic obstructive pulmonary disease, unspecified; I49.5 Sick sinus syndrome; E83.42 Hypomagnesemia; G20 Parkinson's disease; E11.9 Type 2 diabetes mellitus without complications; F41.9 Anxiety disorder, unspecified; F32.9 Major depressive disorder, single episode, unspecified; M19.90 Unspecified osteoarthritis, unspecified site; I25.10 Atherosclerotic heart disease of native coronary artery without angina pectoris; K21.9 Gastro-esophageal reflux disease without esophagitis; I10 Essential (primary) hypertension; E78.5 Hyperlipidemia, unspecified; E03.9 Hypothyroidism, unspecified; H40.9 Unspecified glaucoma; Z96.653 Presence of artificial knee joint, bilateral; F02.80 Dementia in other diseases classified elsewhere, unspecified severity, without behavioral disturbance, psychotic disturbance, mood disturbance, and anxiety; Z86.73 Personal history of transient ischemic attack (TIA), and cerebral infarction without residual deficits; Z90.710 Acquired absence of both cervix and uterus; Z88.1 Allergy status to other antibiotic agents; Z88.2 Allergy status to sulfonamides; Z88.8 Allergy status to other drugs, medicaments and biological substances; Z95.5 Presence of coronary angioplasty implant and graft; Z95.0 Presence of cardiac pacemaker; R51 Headache
CPT/HCPCS: 36415; 70450; 71045; 80053; 81001; 82947; 83735; 84484; 85025; 85379; 85610; 85730; 93005; 93306; 96361; 96374; 96375; J0780; J1200; J3490; J8597; 99285-25; J7030

== ENCOUNTER 2019-03-10 15:14 | Inpatient (IN) | payer MEDICARE ==
[~2019-03-10] VITALS: Ht 160 cm; Wt 84.1 kg
[~2019-03-10 15:14] MED LIST changes: +ATOR20TA58 PO; +CLON0.1T PO; +CLON0.1T12 PERCUT; +CLON1PAT2 TD; +DILT180C30 PO; -DILT180C79 PO; +GABA-586 PO; -GLIM2TAB2 PO; +GLIM2TAB3 PO; +LISI-334 PO; -MAGN400T3 PO; +MAGN400T5 PO; -MELA3TAB2 PO; +MELA3TAB56 PO; +MELO7.5T29 PO; +METH-38 PO; +METO10TA81 PO; +NYST15PO9 TP; +POTA10TA10 PO; +PSYL0.527 PO
[2019-03-10 15:53] VITALS: BP 194/70
[2019-03-10] MEDS: IV NORMAL SALINE 1,000ML 1,000 ML IV SCH (17:00)
[2019-03-10 17:17] LABS: BASO % 1 % (0-3); EOS # 0.1 x10^3/uL (0.0-0.7); EOS % 1 % (0-3); HEMATOCRIT 35.6 % (36.0-47.0); LYMPH # 1.8 x10^3/uL (1.0-4.8); LYMPH % 32 % (24-48); MEAN CORPUSCULAR HEMOGLOBIN 31 pg (25-35); MEAN CORPUSCULAR HGB CONC 34 g/dL (31-37); MEAN CORPUSCULAR VOLUME 92 fL (79-100); MONO # 0.5 x10^3/uL (0.0-1.1); MONO % 9 % (0-9); NEUT # 3.2 x10^3uL (1.8-7.7); NEUT % 58 % (31-73); PLATELET COUNT 364 x10^3/uL (140-400); RED BLOOD COUNT 3.86 x10^6/uL (3.50-5.40); RED CELL DISTRIBUTION WIDTH 13.5 % (11.5-14.5); WHITE BLOOD COUNT 5.6 x10^3/uL (4.0-11.0)
--- NOTE | 2019-03-10 17:34 | NUR ---
Pt admitted directly from Lino Fabian's office to floor for dx of hyponatremia at approximately 1530. Mode of arrival, wheelchair, pt's BP upon arrival was 190/74. Family at bedside. Pt ambulated with minimal assistance, family accompanied pt. Oriented pt to room and to nursing unit. Bed in lowest position, call light within reach. IV placed in R Hand saline lock, currently capped, flushed. Telemetry monitored placed, currently 62 bpm Normal Sinus rythm. Admitted pt to floor, putting in orders and awaiting for more. pt currently on 1500 cc fluid restriction, ADA fluid, partial code status, normal saline ordered at 75 mL/hr. Will continue to assess and monitor pt. Non-skid socks applied. Pt is alert and oriented x 4.
[2019-03-10 17:54] LABS: BACTERIA,URINE FEW /HPF (0-FEW); BILIRUBIN,URINE NEG (NEG); CLARITY,URINE CLEAR; COLOR,URINE STRAW; GLUCOSE,URINE NEG (NEG); NITRITE,URINE NEG (NEG); RBC,URINE OCC /HPF (0-2); SQUAMOUS EPITHELIAL CELL,UR FEW /LPF; UROBILINOGEN,URINE 0.2 mg/dL (0.2 mg/dL); WBC,URINE OCC /HPF (0-4)
[2019-03-10 18:29] LABS: CALCIUM 8.4 mg/dL (8.5-10.1); GFR 54.3; POTASSIUM 4.5 mmol/L (3.5-5.1)
[2019-03-10] MEDS ORDERED: GLIP5TAB10 PO (18:38)
[2019-03-10] MEDS ORDERED: DULO60CA6 PO (18:38)
[2019-03-10] MEDS ORDERED: DILT180C64 PO (18:38)
[2019-03-10] MEDS ORDERED: PRIM50TA24 PO (18:38)
[2019-03-10] MEDS ORDERED: ESOM40CA PO (18:38)
[2019-03-10] MEDS ORDERED: ROPI1TAB2 PO (18:38)
[2019-03-10] MEDS ORDERED: HYDR-2868 PO (18:38)
[2019-03-10] MEDS ORDERED: DULoxetine HCL 60 MG CAPSULE.DR PO PRN (18:45)
[2019-03-10] MEDS ORDERED: cloNIDine HCL 0.1 MG TABLET PO PRN (18:45)
[2019-03-10] MEDS ORDERED: NON FORMULARY ITEM (Esomeprazole Magnesium (Nexium Capsule) 1 CAP) PO PRN (18:45)
[2019-03-10 19:40] VITALS: BP 158/56
[2019-03-10 19:43] LABS: ALBUMIN 3.2 g/dL (3.4-5.0); CALCIUM 8.5 mg/dL (8.5-10.1); GFR 54.3; POTASSIUM 4.4 mmol/L (3.5-5.1); TOTAL BILIRUBIN 0.3 mg/dL (0.2-1.0); TOTAL PROTEIN 6.5 g/dL (6.4-8.2)
[2019-03-10] MEDS: METHOCARBAMOL 500 MG TABLET PO SCH (20:40)
[2019-03-10] MEDS: LORazepam 0.5 MG TABLET PO SCH (20:43)
[2019-03-10] MEDS: oxyCODONE ER 20 MG TAB.ER.12H PO SCH (20:44)
[2019-03-10] MEDS: MIRTAZAPINE 30 MG TABLET PO SCH (20:44)
[2019-03-10] MEDS: ZOLPIDEM 5 MG TABLET. PO SCH (20:44)
[2019-03-10] MEDS: GABAPENTIN 300 MG CAPSULE. PO SCH (20:44)
[2019-03-10] MEDS: LACTOBACILLUS RHAMNOSUS GG 1 CAPSULE. PO SCH (20:45)
[2019-03-10] MEDS: busPIRone 15 MG TABLET. PO SCH (20:45)
[2019-03-10] MEDS: MELATONIN 3 MG TABLET PO SCH (20:45)
[2019-03-10] MEDS: DULoxetine HCL 60 MG CAPSULE.DR PO SCH (20:45)
[2019-03-10] MEDS: hydrALAZINE 25 MG TABLET PO SCH (20:46)
[2019-03-10] MEDS: DONEPEZIL HCL 10 MG TABLET PO SCH (20:46)
[2019-03-10] MEDS: CLOPIDOGREL BISULFATE 75 MG TABLET PO SCH (20:46)
[2019-03-10] MEDS: PRIMIDONE 50 MG TABLET PO SCH (20:47)
[2019-03-10] MEDS: PSYLLIUM SEED (WITH SUGAR) PACKET. PO SCH (20:47)
[2019-03-10] MEDS: rOPINIRole 1 MG TABLET. PO SCH (20:47)
[2019-03-10] MEDS: LIDOCAINE (700MG/PATCH) PATCH. TP SCH (20:47)
[2019-03-10] MEDS: NYSTATIN TOPICAL POWDER 15GM BOTTLE. TP SCH (20:48)
[2019-03-10] MEDS: METOCLOPRAMIDE 10 MG TABLET PO SCH (20:52)
[2019-03-10] MEDS: DICLOFENAC SODIUM 1% TOPICAL GEL 100GM TUBE. TP SCH (22:04)
[2019-03-10 22:35] VITALS: BP 135/71
[2019-03-11 05:37] VITALS: BP 138/70
[2019-03-11] MEDS: LEVOTHYROXINE 150 MCG TABLET PO SCH (06:11)
[2019-03-11 06:54] LABS: BASO % 0 % (0-3); EOS % 0 % (0-3); HEMATOCRIT 36.6 % (36.0-47.0); HEMOGLOBIN 12.1 g/dL (12.0-15.5); LYMPH # 0.6 x10^3/uL (1.0-4.8); LYMPH % 5 % (24-48); MEAN CORPUSCULAR HEMOGLOBIN 30 pg (25-35); MEAN CORPUSCULAR HGB CONC 33 g/dL (31-37); MEAN CORPUSCULAR VOLUME 92 fL (79-100); MONO # 0.7 x10^3/uL (0.0-1.1); MONO % 6 % (0-9); NEUT # 10.7 x10^3uL (1.8-7.7); NEUT % 88 % (31-73); PLATELET COUNT 322 x10^3/uL (140-400); RED BLOOD COUNT 3.97 x10^6/uL (3.50-5.40); RED CELL DISTRIBUTION WIDTH 13.3 % (11.5-14.5); WHITE BLOOD COUNT 12.1 x10^3/uL (4.0-11.0)
[2019-03-11 07:05] LABS: ALBUMIN 3.3 g/dL (3.4-5.0); CALCIUM 8.5 mg/dL (8.5-10.1); CREATININE 0.9 mg/dL (0.6-1.0); GFR 61.4; POTASSIUM 4.2 mmol/L (3.5-5.1); TOTAL BILIRUBIN 0.3 mg/dL (0.2-1.0); TOTAL PROTEIN 6.6 g/dL (6.4-8.2)
[2019-03-11] MEDS: DICLOFENAC SODIUM 1% TOPICAL GEL 100GM TUBE. TP SCH ×2 (08:16→20:17)
[2019-03-11] MEDS: PSYLLIUM SEED (WITH SUGAR) PACKET. PO SCH ×2 (08:16→20:26)
[2019-03-11] MEDS: IV NORMAL SALINE 1,000ML 1,000 ML IV SCH ×2 (08:16→20:23)
[2019-03-11] MEDS: ATORVASTATIN CALCIUM 20 MG TABLET PO SCH (08:16)
[2019-03-11] MEDS: NYSTATIN TOPICAL POWDER 15GM BOTTLE. TP SCH ×2 (08:16→20:17)
[2019-03-11] MEDS: glipiZIDE 5 MG TABLET PO SCH (08:17)
[2019-03-11] MEDS: METHOCARBAMOL 500 MG TABLET PO SCH ×3 (08:17→20:18)
[2019-03-11] MEDS: MAGNESIUM OXIDE 400 MG TABLET PO SCH (08:17)
[2019-03-11] MEDS: DULoxetine HCL 60 MG CAPSULE.DR PO SCH ×2 (08:17→20:19)
[2019-03-11] MEDS: CARBIDOPA/LEVODOPA 25/100MG TABLET PO SCH ×3 (08:18→17:07)
[2019-03-11] MEDS: LISINOPRIL 20 MG TABLET PO SCH (08:18)
[2019-03-11] MEDS: GABAPENTIN 300 MG CAPSULE. PO SCH ×3 (08:18→20:19)
[2019-03-11] MEDS: ASPIRIN 81 MG TAB.CHEW PO SCH (08:18)
[2019-03-11] MEDS: LORazepam 0.5 MG TABLET PO SCH ×4 (08:19→20:19)
[2019-03-11] MEDS: LACTOBACILLUS RHAMNOSUS GG 1 CAPSULE. PO SCH ×2 (08:19→20:18)
[2019-03-11] MEDS: metFORMIN 500 MG TABLET PO SCH ×2 (08:19→17:00)
[2019-03-11] MEDS: METOCLOPRAMIDE 10 MG TABLET PO SCH ×4 (08:19→20:20)
[2019-03-11] MEDS: oxyCODONE ER 20 MG TAB.ER.12H PO SCH ×3 (08:19→20:20)
[2019-03-11] MEDS: busPIRone 15 MG TABLET. PO SCH ×3 (08:20→20:20)
[2019-03-11] MEDS: MELOXICAM 7.5 MG TABLET PO SCH (08:20)
[2019-03-11] MEDS: VITAMIN E. 400 UNIT CAPSULE. PO SCH (08:20)
[2019-03-11] MEDS: CHOLECALCIFEROL (VITAMIN D3) 1,000 UNIT TABLET PO SCH (08:20)
[2019-03-11] MEDS: PANTOPRAZOLE 40 MG TABLET. PO SCH (08:21)
[2019-03-11] MEDS: rOPINIRole 1 MG TABLET. PO SCH ×3 (08:21→20:19)
[2019-03-11] MEDS: FERROUS SULFATE 325 MG TABLET. PO SCH (08:21)
[2019-03-11] MEDS: hydrALAZINE 25 MG TABLET PO SCH ×2 (08:21→20:21)
--- NOTE | 2019-03-11 08:24 | RAD ---
EXAM: CHEST 2 VIEWS. HISTORY: Shortness of breath. COMPARISON: 09/25/2018. FINDINGS: Frontal and lateral views of the chest are obtained. A right-sided pacemaker has its leads in the right atrium and right ventricle. There are no confluent infiltrates. The right hemidiaphragm is mildly elevated. There is no pneumothorax or pleural effusion. The heart is not enlarged. There are atherosclerotic calcifications of the aorta. IMPRESSION: 1. No confluent infiltrates. Electronically signed by: Trina Rodriguez MD (03/11/2019 8:21 AM) [facility]
[2019-03-11 09:54] LABS: % ATYL 4 % (0-0); % BANDS 11 % (0-9); % LYMPHS 4 % (24-48); % MONOS 2 % (0-10); % SEGS 79 % (35-66)
[2019-03-11 09:56] LABS: PLT ESTIMATE ADEQUATE (ADEQUATE)
[2019-03-11 10:00] LABS: ACANTHOCYTES FEW
[2019-03-11 10:32] VITALS: BP 138/58
[2019-03-11 14:54] VITALS: BP 145/67
[2019-03-11 19:07] LABS: SODIUM, URINE <20 mmol/L (Not Estab.); UR POTASSIUM 20.1 mmol/L (Not Estab.)
[2019-03-11 19:23] VITALS: BP 153/71
[2019-03-11] MEDS: ZOLPIDEM 5 MG TABLET. PO SCH (20:19)
[2019-03-11] MEDS: PRIMIDONE 50 MG TABLET PO SCH (20:19)
[2019-03-11] MEDS: MELATONIN 3 MG TABLET PO SCH (20:20)
[2019-03-11] MEDS: DONEPEZIL HCL 10 MG TABLET PO SCH (20:20)
[2019-03-11] MEDS: CLOPIDOGREL BISULFATE 75 MG TABLET PO SCH (20:21)
[2019-03-11] MEDS: MIRTAZAPINE 30 MG TABLET PO SCH (20:21)
[2019-03-11] MEDS: LIDOCAINE (700MG/PATCH) PATCH. TP SCH (20:22)
[2019-03-11 23:24] VITALS: BP 111/55
--- NOTE | 2019-03-12 05:45 | PN ---
DATE: SUBJECTIVE: The patient is still somewhat short of breath. The patient's white count has shot up to 12,000 and she is running a low-grade temperature of 99.8. The patient was started on Rocephin IV, probably has some type of a respiratory ailment as she has been coughing and sneezing quite a bit. In any case, the patient will be started on IV antibiotic therapy. Continue to monitor electrolytes. She was placed on fluid restriction and make further evaluation on her as those labs come back. IMPRESSION: Probable SIADH, upper respiratory tract infection, unknown etiology. PLAN: As discussed above. DUY WISE MD DR: GERSON/richard JOB#: [id number] / [id number]
[2019-03-12 05:50] VITALS: BP 171/75
[2019-03-12] MEDS: LEVOTHYROXINE 150 MCG TABLET PO SCH (05:50)
[2019-03-12 06:58] LABS: CALCIUM 8.1 mg/dL (8.5-10.1); CREATININE 0.8 mg/dL (0.6-1.0); GFR 70.3; POTASSIUM 4.8 mmol/L (3.5-5.1)
[2019-03-12] MEDS: NYSTATIN TOPICAL POWDER 15GM BOTTLE. TP SCH ×2 (08:26→20:59)
[2019-03-12] MEDS: DICLOFENAC SODIUM 1% TOPICAL GEL 100GM TUBE. TP SCH ×2 (08:26→20:59)
[2019-03-12] MEDS: METOCLOPRAMIDE 10 MG TABLET PO SCH ×4 (08:27→20:56)
[2019-03-12] MEDS: PSYLLIUM SEED (WITH SUGAR) PACKET. PO SCH ×2 (08:27→20:58)
[2019-03-12] MEDS: hydrALAZINE 25 MG TABLET PO SCH ×2 (08:27→20:57)
[2019-03-12] MEDS: MELOXICAM 7.5 MG TABLET PO SCH (08:27)
[2019-03-12] MEDS: ATORVASTATIN CALCIUM 20 MG TABLET PO SCH (08:27)
[2019-03-12] MEDS: VITAMIN E. 400 UNIT CAPSULE. PO SCH (08:28)
[2019-03-12] MEDS: FERROUS SULFATE 325 MG TABLET. PO SCH (08:28)
[2019-03-12] MEDS: LISINOPRIL 20 MG TABLET PO SCH (08:28)
[2019-03-12] MEDS: DULoxetine HCL 60 MG CAPSULE.DR PO SCH ×2 (08:28→20:57)
[2019-03-12] MEDS: ASPIRIN 81 MG TAB.CHEW PO SCH (08:28)
[2019-03-12] MEDS: MAGNESIUM OXIDE 400 MG TABLET PO SCH (08:28)
[2019-03-12] MEDS: LORazepam 0.5 MG TABLET PO SCH ×4 (08:28→20:56)
[2019-03-12] MEDS: PANTOPRAZOLE 40 MG TABLET. PO SCH (08:28)
[2019-03-12] MEDS: GABAPENTIN 300 MG CAPSULE. PO SCH ×3 (08:29→20:57)
[2019-03-12] MEDS: CHOLECALCIFEROL (VITAMIN D3) 1,000 UNIT TABLET PO SCH (08:29)
[2019-03-12] MEDS: rOPINIRole 1 MG TABLET. PO SCH ×3 (08:29→21:00)
[2019-03-12] MEDS: LACTOBACILLUS RHAMNOSUS GG 1 CAPSULE. PO SCH ×2 (08:29→20:56)
[2019-03-12] MEDS: busPIRone 15 MG TABLET. PO SCH ×3 (08:29→20:57)
[2019-03-12] MEDS: oxyCODONE ER 20 MG TAB.ER.12H PO SCH ×3 (08:29→20:58)
[2019-03-12] MEDS: IV NORMAL SALINE 1,000ML 1,000 ML IV SCH (08:31)
[2019-03-12] MEDS: glipiZIDE 5 MG TABLET PO SCH (09:00)
[2019-03-12] MEDS: METHOCARBAMOL 500 MG TABLET PO SCH ×3 (10:07→20:56)
[2019-03-12] MEDS: CARBIDOPA/LEVODOPA 25/100MG TABLET PO SCH ×3 (10:09→17:14)
[2019-03-12 10:35] VITALS: BP 174/70
[2019-03-12 10:49] VITALS: BP 151/71
[2019-03-12] MEDS ORDERED: cloNIDine TTS-2 1 PATCH PATCH TD SCH (11:00)
[2019-03-12 11:04] LABS: BASO % 0 % (0-3); EOS # 0.1 x10^3/uL (0.0-0.7); EOS % 1 % (0-3); HEMATOCRIT 33.4 % (36.0-47.0); HEMOGLOBIN 11.1 g/dL (12.0-15.5); LYMPH # 0.9 x10^3/uL (1.0-4.8); LYMPH % 9 % (24-48); MEAN CORPUSCULAR HEMOGLOBIN 31 pg (25-35); MEAN CORPUSCULAR HGB CONC 33 g/dL (31-37); MEAN CORPUSCULAR VOLUME 93 fL (79-100); MONO # 0.7 x10^3/uL (0.0-1.1); MONO % 7 % (0-9); NEUT # 8.3 x10^3uL (1.8-7.7); NEUT % 82 % (31-73); PLATELET COUNT 296 x10^3/uL (140-400); RED BLOOD COUNT 3.61 x10^6/uL (3.50-5.40); RED CELL DISTRIBUTION WIDTH 13.3 % (11.5-14.5); WHITE BLOOD COUNT 10.1 x10^3/uL (4.0-11.0)
[2019-03-12] MEDS ORDERED: IOHEXOL 350 MG/ML 100 ML VIAL. IV ONE (12:00)
[2019-03-12] MEDS ORDERED: IOHEXOL 300 MG/ML 75 ML VIAL. IV ONE (12:30)
[2019-03-12] MEDS ORDERED: CONTRAST GIVEN MC PRN (12:30)
--- NOTE | 2019-03-12 15:07 | RAD ---
CT Angio chest 03/12/2019 10:36 AM Indication: Positive d-dimer. Shortness of breath. Technique: Multiple contiguous axial images were obtained through the chest after administration of intravenous iodinated contrast. Coronal, sagittal, and 3-D MIP reformations were created. Chest radiograph, earlier today None Findings: There is no filling defect within central pulmonary arteries or evidence of acute pulmonary embolism. Heart size is top normal. No pericardial effusion is identified. Pacemaking device noted from a right subclavian approach. No pathologically enlarged mediastinal adenopathy is seen. Coronary calcification is noted. Visualized thoracic aorta is unremarkable in course and caliber. No pneumothorax, or pleural effusion is seen. Patchy groundglass infiltrate is seen in the left lower lobe, right lower lobe, and to a lesser degree right upper lobe. Differential considerations include atypical edema or pneumonia. No acute osseous changes are seen. Impression: 1. No evidence of acute pulmonary embolism 2. Patchy bilateral lower lobe predominant infiltrates, possibly the right upper lobe. Findings could represent atypical edema or pneumonia CT DOSING PQRS STATEMENT: One or more of the following individualized dose reduction techniques were utilized for this examination: 1. Automated exposure control 2. Adjustment of the mA and/or kV according to patient size 3. Use of iterative reconstruction technique Electronically signed by: Bhavesh Gonzalez MD (03/12/2019 3:05 PM) [id number]
[2019-03-12 15:14] VITALS: BP 148/69
[2019-03-12 19:43] VITALS: BP 159/68
[2019-03-12] MEDS: MIRTAZAPINE 30 MG TABLET PO SCH (20:56)
[2019-03-12] MEDS: CLOPIDOGREL BISULFATE 75 MG TABLET PO SCH (20:56)
[2019-03-12] MEDS: DONEPEZIL HCL 10 MG TABLET PO SCH (20:57)
[2019-03-12] MEDS: MELATONIN 3 MG TABLET PO SCH (20:57)
[2019-03-12] MEDS: ZOLPIDEM 5 MG TABLET. PO SCH (20:58)
[2019-03-12] MEDS: LIDOCAINE (700MG/PATCH) PATCH. TP SCH (20:58)
[2019-03-12] MEDS: PRIMIDONE 50 MG TABLET PO SCH (20:58)
[2019-03-12 23:16] VITALS: BP 116/68
--- NOTE | 2019-03-13 03:53 | PN ---
DATE: SUBJECTIVE: A 74-year-old female. The patient has been running a temperature. Her white count shot up and she had a left shift of 11 bands on her white count. The patient is not on any steroids to cause this and the patient's temperature did shoot up to approximately 99.8 degrees, her pulse also shot up to over 100. Other labs are still pending. OBJECTIVE: VITAL SIGNS: Her blood pressure went up to ____, respiratory rate 20, pulse 80, temperature 99.3, oxygen saturation 90% to 97%. The patient will be placed on Rocephin and Levaquin as well as get a CTA because of a positive D-dimer. The patient will be placed on SCDs. Her sodium dropped down to 127, placed on fluid restriction, again tightened it down to about 150 mL per day. GENERAL: The patient is alert and oriented. LUNGS: Diminished throughout, some crackles in the bases. CARDIOVASCULAR: Regular, sinus rhythm. Tachy at times. ABDOMEN: Soft, nontender. EXTREMITIES: No clubbing, cyanosis, nor edema. NEUROLOGIC: The patient is alert and oriented. IMPRESSION: Fever of unknown origin, systemic inflammatory response syndrome, unknown etiology. PLAN: The patient continued to be monitored. Continue on IV antibiotic therapy for now until CTA comes back. Get her blood pressure under control. Put her back on [id number]-OSL-6 patch for her hypertension and make adjustments on her electrolytes as indicated as she tends to overdrink her fluids. DUY WISE MD DR: GERSON/richard JOB#: [id number] / [id number]
[2019-03-13 06:15] VITALS: BP 170/79
[2019-03-13] MEDS: LEVOTHYROXINE 150 MCG TABLET PO SCH (06:16)
[2019-03-13] MEDS: DICLOFENAC SODIUM 1% TOPICAL GEL 100GM TUBE. TP SCH ×2 (08:28→20:43)
[2019-03-13] MEDS: DULoxetine HCL 60 MG CAPSULE.DR PO SCH ×2 (08:29→20:45)
[2019-03-13] MEDS: LORazepam 0.5 MG TABLET PO SCH ×4 (08:29→20:45)
[2019-03-13] MEDS: VITAMIN E. 400 UNIT CAPSULE. PO SCH (08:29)
[2019-03-13] MEDS: FERROUS SULFATE 325 MG TABLET. PO SCH (08:30)
[2019-03-13] MEDS: busPIRone 15 MG TABLET. PO SCH ×3 (08:31→20:44)
[2019-03-13] MEDS: METOCLOPRAMIDE 10 MG TABLET PO SCH ×4 (08:31→20:44)
[2019-03-13] MEDS: oxyCODONE ER 20 MG TAB.ER.12H PO SCH ×3 (08:31→20:45)
[2019-03-13] MEDS: ATORVASTATIN CALCIUM 20 MG TABLET PO SCH (08:31)
[2019-03-13] MEDS: LACTOBACILLUS RHAMNOSUS GG 1 CAPSULE. PO SCH ×2 (08:32→20:44)
[2019-03-13] MEDS: CARBIDOPA/LEVODOPA 25/100MG TABLET PO SCH ×3 (08:32→16:56)
[2019-03-13] MEDS: MAGNESIUM OXIDE 400 MG TABLET PO SCH (08:32)
[2019-03-13] MEDS: PANTOPRAZOLE 40 MG TABLET. PO SCH (08:33)
[2019-03-13] MEDS: MELOXICAM 7.5 MG TABLET PO SCH (08:33)
[2019-03-13] MEDS: LISINOPRIL 20 MG TABLET PO SCH (08:33)
[2019-03-13] MEDS: glipiZIDE 5 MG TABLET PO SCH (08:33)
[2019-03-13] MEDS: GABAPENTIN 300 MG CAPSULE. PO SCH ×3 (08:34→20:44)
[2019-03-13] MEDS: ASPIRIN 81 MG TAB.CHEW PO SCH (08:34)
[2019-03-13] MEDS: CHOLECALCIFEROL (VITAMIN D3) 1,000 UNIT TABLET PO SCH (08:34)
[2019-03-13] MEDS: rOPINIRole 1 MG TABLET. PO SCH ×3 (08:35→20:44)
[2019-03-13] MEDS: hydrALAZINE 25 MG TABLET PO SCH ×3 (08:35→20:41)
[2019-03-13] MEDS: NYSTATIN TOPICAL POWDER 15GM BOTTLE. TP SCH ×2 (08:36→20:43)
[2019-03-13] MEDS: METHOCARBAMOL 500 MG TABLET PO SCH ×3 (08:36→20:44)
[2019-03-13] MEDS: PSYLLIUM SEED (WITH SUGAR) PACKET. PO SCH ×2 (08:37→20:44)
[2019-03-13 10:21] LABS: BASO % 0 % (0-3); EOS # 0.2 x10^3/uL (0.0-0.7); EOS % 3 % (0-3); HEMATOCRIT 31.4 % (36.0-47.0); HEMOGLOBIN 10.5 g/dL (12.0-15.5); LYMPH % 12 % (24-48); MEAN CORPUSCULAR HEMOGLOBIN 31 pg (25-35); MEAN CORPUSCULAR HGB CONC 33 g/dL (31-37); MEAN CORPUSCULAR VOLUME 93 fL (79-100); MONO # 0.5 x10^3/uL (0.0-1.1); MONO % 6 % (0-9); NEUT # 6.3 x10^3uL (1.8-7.7); NEUT % 79 % (31-73); PLATELET COUNT 287 x10^3/uL (140-400); RED BLOOD COUNT 3.37 x10^6/uL (3.50-5.40); RED CELL DISTRIBUTION WIDTH 13.7 % (11.5-14.5)
[2019-03-13 10:28] LABS: GFR 54.3; POTASSIUM 4.5 mmol/L (3.5-5.1)
[2019-03-13 11:24] VITALS: BP 150/57
[2019-03-13 15:53] VITALS: BP 115/62
[2019-03-13 19:50] VITALS: BP 110/54
[2019-03-13] MEDS: DONEPEZIL HCL 10 MG TABLET PO SCH (20:44)
[2019-03-13] MEDS: MIRTAZAPINE 30 MG TABLET PO SCH (20:44)
[2019-03-13] MEDS: PRIMIDONE 50 MG TABLET PO SCH (20:44)
[2019-03-13] MEDS: CLOPIDOGREL BISULFATE 75 MG TABLET PO SCH (20:45)
[2019-03-13] MEDS: MELATONIN 3 MG TABLET PO SCH (20:45)
[2019-03-13] MEDS: LIDOCAINE (700MG/PATCH) PATCH. TP SCH (20:45)
[2019-03-13] MEDS: ZOLPIDEM 5 MG TABLET. PO SCH (20:45)
[2019-03-13 23:32] VITALS: BP 109/80
--- NOTE | 2019-03-14 02:07 | PN ---
DATE: 03/13/2019 SUBJECTIVE: A 74-year-old female admitted with pneumonia and hyponatremia. The patient is doing somewhat better. She has been on some fluid restriction, difficult to draw her blood, but her sodium has come up from 127 to 133. Overall, doing better. OBJECTIVE: VITAL SIGNS: Blood pressure 110/54, respiratory rate 18, pulse 60, afebrile. GENERAL: The patient is alert and oriented. The patient is ambulatory. LUNGS: Diminished, but clear, some crackles in the right lower lung base. CARDIOVASCULAR: Regular sinus rhythm. ABDOMEN: Soft, nontender. EXTREMITIES: No clubbing, cyanosis or edema. NEUROLOGIC: Alert and oriented, at baseline. The patient's labs are as noted. Sodium 133, 4.5 BUN and creatinine 11.1. The patient's blood sugars vacillated. The patient's calcium is slightly low due to low albumin. The patient's white count seems to be improving as well, although she does seem to be slightly anemic. IMPRESSION: Pneumonia of unspecified etiology, community acquired, possibly atypical; anemia of unspecified etiology; hyponatremia; type 2 diabetes. PLAN: The patient will be monitored, continue on IV antibiotic therapy and we will adjust accordingly, possibly ready for discharge here soon. DUY WISE MD DR: GERSON/richard JOB#: [id number] / [id number]
--- NOTE | 2019-03-14 02:36 | PN ---
DATE: SUBJECTIVE: A 74-year-old female in, who apparently has developed and had pneumonia on admission. OBJECTIVE: VITAL SIGNS: Her blood pressure is still elevated at 170/79, respiratory rate 20, pulse 106, afebrile. GENERAL: The patient is alert and oriented. LUNGS: Diminished, poor movement of air. CARDIOVASCULAR: Tachycardic. ABDOMEN: Soft, nontender. The patient overall looks very good, ambulatory in the hallways consistently. CTA yesterday did demonstrate significant problem with patchy bilateral lobe infiltrate and also right upper lobe possibly atypical or some form of pneumonia. She is on Levaquin and Rocephin, which should cover these particular organisms, although a PCR is not available at this facility. IMPRESSION: Pneumonia of unspecified etiology, community acquired. PLAN: Continue on IV antibiotic therapy. Apparently unable to get blood this morning because we put her on fluid restriction and she is dry. They will try again using warm packs on that. DUY WISE MD DR: GERSON/richard JOB#: [id number] / [id number]
[2019-03-14 06:14] VITALS: BP 133/66
[2019-03-14] MEDS: LEVOTHYROXINE 150 MCG TABLET PO SCH (06:14)
[2019-03-14] MEDS: METHOCARBAMOL 500 MG TABLET PO SCH (07:49)
[2019-03-14] MEDS: LISINOPRIL 20 MG TABLET PO SCH (07:50)
[2019-03-14] MEDS: LORazepam 0.5 MG TABLET PO SCH (07:50)
[2019-03-14] MEDS: MELOXICAM 7.5 MG TABLET PO SCH (07:51)
[2019-03-14] MEDS: GABAPENTIN 300 MG CAPSULE. PO SCH (07:51)
[2019-03-14] MEDS: glipiZIDE 5 MG TABLET PO SCH (07:51)
[2019-03-14] MEDS: CARBIDOPA/LEVODOPA 25/100MG TABLET PO SCH (07:51)
[2019-03-14] MEDS: busPIRone 15 MG TABLET. PO SCH (07:51)
[2019-03-14] MEDS: MAGNESIUM OXIDE 400 MG TABLET PO SCH (07:52)
[2019-03-14] MEDS: METOCLOPRAMIDE 10 MG TABLET PO SCH (07:52)
[2019-03-14] MEDS: DULoxetine HCL 60 MG CAPSULE.DR PO SCH (07:52)
[2019-03-14] MEDS: ATORVASTATIN CALCIUM 20 MG TABLET PO SCH (07:52)
[2019-03-14] MEDS: CHOLECALCIFEROL (VITAMIN D3) 1,000 UNIT TABLET PO SCH (07:52)
[2019-03-14] MEDS: LACTOBACILLUS RHAMNOSUS GG 1 CAPSULE. PO SCH (07:52)
[2019-03-14] MEDS: ASPIRIN 81 MG TAB.CHEW PO SCH (07:52)
[2019-03-14] MEDS: FERROUS SULFATE 325 MG TABLET. PO SCH (07:52)
[2019-03-14] MEDS: NYSTATIN TOPICAL POWDER 15GM BOTTLE. TP SCH (07:53)
[2019-03-14] MEDS: DICLOFENAC SODIUM 1% TOPICAL GEL 100GM TUBE. TP SCH (07:53)
[2019-03-14] MEDS: oxyCODONE ER 20 MG TAB.ER.12H PO SCH (07:58)
[2019-03-14] MEDS: PANTOPRAZOLE 40 MG TABLET. PO SCH (07:58)
[2019-03-14] MEDS: VITAMIN E. 400 UNIT CAPSULE. PO SCH (07:58)
[2019-03-14] MEDS: PSYLLIUM SEED (WITH SUGAR) PACKET. PO SCH (07:59)
--- NOTE | 2019-03-14 08:54 | NUR ---
LEVAQUIN 750MG WAS CHANGED TO PO PER P&T POLICY- WBC 8.0, AFEBRILE AND PT IS ON FLUID RESTRICTIONS. SHE REMAINS ON IV ROCEPHIN
[2019-03-14] MEDS: hydrALAZINE 25 MG TABLET PO SCH (09:00)
[2019-03-14] MEDS: rOPINIRole 1 MG TABLET. PO SCH (09:19)
[2019-03-14 09:39] LABS: CALCIUM 8.4 mg/dL (8.5-10.1); CREATININE 1.1 mg/dL (0.6-1.0); GFR 48.7; POTASSIUM 4.8 mmol/L (3.5-5.1)
[2019-03-14 10:19] VITALS: BP 133/50
[2019-03-14] MEDS ORDERED: levoFLOXacin 750 MG TABLET PO SCH (11:00)
[2019-03-14] MEDS ORDERED: HYDR-2868 PO (11:09)
[2019-03-14] MEDS ORDERED: LEVO750T31 PO (11:10)
--- NOTE | 2019-03-14 11:28 | DISCH ---
HOME HEALTH DISCHARGE/MEDS DISCHARGE INFORMATION: Discharge Date: Mar 14, 2019 Final Diagnosis: CAP SIADH HTN HLD HYPOTHYROIDISM PARKINSON DISEASE Condition on Discharge: Stable CODE STATUS: Code Status: Full HOME HEALTH: Face to Face: I certify this patient is under my care and that I, or a nurse practitioner or physician's assistant professor of biology working with me, had a face to face encounter that meets the physician face to face encounter requirements with this patient on 03/14/2019 Medical Condition(s): Pneumonia Physical Therapy For: Evalulation/Treatment Occupational Therapy For: Evaluation/Treatment Homebound Status Met By: Unsteady balance w/ amb, POST DISCHARGE ORDERS: Activity Instructions for Disc: Resume previous activity DIET AFTER DISCHARGE: CERTIFICATION STATEMENT: Certification Statement: Based on the above finding, I certify that this patient is confined to the home and needs intermittent half-way care, physical therapy and/or speech therapy, or continues to need occupational therapy.~ This patient is under my care, and I have initiated the establishment of the plan of care.~ This patient will be followed by myself or a community physician who will periodically review the plan of care. DISCHARGE MEDICATIONS: Home Meds Active Scripts Levofloxacin (LEVAQUIN) 750 Mg Tablet, 1 TAB PO QOD for CAP for 7 Days, #3 TAB 0 Refills Prov:ASHLEY HENRIQUEZ MD 03/14/19 Hydralazine Hcl (HYDRALAZINE HCL) 25 Mg Tablet, 1 TAB PO TID for HN for 30 Days, #90 TAB 5 Refills Prov:ASHLEY HENRIQUEZ MD 03/14/19 Lisinopril (LISINOPRIL) 20 Mg Tablet, 1 TAB PO DAILY for bp, #30 TAB 2 Refills Prov:DUY WISE MD 09/27/18 Clonidine Hcl (CLONIDINE HCL) 0.1 Mg Tablet, 1 TAB PO Q6HRS PRN for hypertension, #30 TAB 2 Refills if systolic BP >160 take one clonidine Prov:DUY WISE MD 09/27/18 Nystatin (NYSTATIN) 15 Gm Powder, 1 ROSEMARY TP BID for under breast, #1 BOTTLE Apply to groin area Prov:DUY WISE MD 09/27/18 Reported Medications Ropinirole Hcl (ROPINIROLE HCL) 1 Mg Tablet, 1 MG PO TID for Parkinson's, TAB 03/10/19 Glipizide (GLIPIZIDE) 5 Mg Tablet, 1 TAB PO DAILY for DM II, #90 TAB 3 Refills 03/10/19 Primidone (MYSOLINE) 50 Mg Tablet, 50 MG PO HS for parkinson's, TAB 03/10/19 Potassium Chloride (POTASSIUM CHLORIDE) 10 Meq Tablet.er, 10 MEQ PO DAILY for hypokalemia, TAB 09/26/18 Metoclopramide Hcl (REGLAN) 10 Mg Tablet, 10 MG PO TIDWMEALHC for gastroparesis, TAB 09/26/18 Methocarbamol (ROBAXIN-750) 750 Mg Tablet, 1 TAB PO TID for MUSCLE CRAMPS, #90 TAB 09/26/18 Atorvastatin Calcium (ATORVASTATIN CALCIUM) 20 Mg Tablet, 1 TAB PO DAILY for HLD, #30 TAB 5 Refills 09/26/18 Meloxicam (MELOXICAM) 7.5 Mg Tablet, 7.5 MG PO DAILY for OA, TAB 09/26/18 Gabapentin (GABAPENTIN ) 300 Mg Capsule, 300 MG PO TID for NEUROGENIC PAIN, CAP 09/26/18 Psyllium Husk (FIBER) 0.52 Gm Capsule, 0.52 GM PO BID for CONSTIPATION, CAP 09/26/18 Aspirin (ASPIRIN) 81 Mg Tab.chew, 81 MG PO DAILY for Factor V Leiden, TAB 09/26/18 Bifidobacterium Infantis (ALIGN) 4 Mg Capsule, 4 MG PO DAILY for INTESTINAL HEALTH LAST DOSE GIVEN: DATE:TODAY TIME:MORNING NEXT DOSE DUE: DATE:TOMORROW TIME:MORNING 04/19/17 Donepezil Hcl (ARICEPT) 10 Mg Tablet, 10 MG PO HS for MEMORY LAST DOSE GIVEN: DATE:YESTERDAY TIME:BEDTIME NEXT DOSE DUE: DATE:TODAY TIME:BEDTIME 08/14/16 Diltiazem HCl (Diltiazem 24Hr Cd) 180 Mg Cap.er.24h, 180 MG PO DAILY for HIGH BLOOD PRESSURE LAST DOSE GIVEN: DATE:TODAY TIME:MORNING NEXT DOSE DUE: DATE:TOMORROW TIME:MORNING 08/14/16 Duloxetine Hcl (CYMBALTA) 60 Mg Capsule.dr, 60 MG PO BID for DEPRESSION LAST DOSE GIVEN: DATE:TODAY TIME:MORNING NEXT DOSE DUE: DATE:TODAY TIME:BEDTIME 08/14/16 Oxycodone Hcl (OXYCODONE HCL EXTEND.RELEASE ) 10 Mg Tablet, 2 TAB PO TID for PAIN LAST DOSE GIVEN: DATE: TODAY TIME: AM NEXT DOSE DUE: DATE: TODAY TIME: PM 04/11/16 Carbidopa/Levodopa (SINEMET 25-100 MG TABLET) 1 Each Tablet, 3 TAB PO TIDWMEALS for PARKINSON'S LAST DOSE GIVEN: DATE: TIME: AM NEXT DOSE DUE: DATE: TODAY TIME: AFTERNOON 04/11/16 Zolpidem Tartrate (ZOLPIDEM TARTRATE) 5 Mg Tablet, 1 TAB PO QHS for SLEEP LAST DOSE GIVEN: DATE: YESTERDAY TIME: AT BEDTIME NEXT DOSE DUE: DATE: TODAY TIME: AT BEDTIME 04/11/16 Magnesium Oxide (MAGNESIUM OXIDE) 400 Mg Tablet, 1 TAB PO DAILY for SUPPLEMENT LAST DOSE GIVEN: DATE: TIME: AM NEXT DOSE DUE: DATE: TODAY TIME: PM 04/11/16 Ferrous Sulfate (Slow Fe) 142 Mg Tablet.er, 142 MG PO DAILY for SUPPLEMENT LAST DOSE GIVEN: DATE: TIME: AM NEXT DOSE DUE: DATE: TOMORROW TIME: AM 04/11/16 Vitamin E (VITAMIN E) 100 Unit Capsule, 100 UNIT PO DAILY for SUPPLEMENT LAST DOSE GIVEN: DATE: TODAY TIME: AM NEXT DOSE DUE: DATE: TOMORROW TIME: AM 04/11/16 Cholecalciferol (Vitamin D3) (VITAMIN D3) 1,000 Unit Tablet, 2 TAB PO DAILY for SUPPLEMENT LAST DOSE GIVEN: DATE: TIME: AM NEXT DOSE DUE: DATE: TOMORROW TIME: AM 04/11/16 Melatonin (MELATONIN) 3 Mg Tablet, 10 MG PO HS for SLEEP LAST DOSE GIVEN: DATE: YESTER TIME: AT BEDTIME NEXT DOSE DUE: DATE: TODAY TIME: AT BEDTIME 04/11/16 Levothyroxine Sodium (LEVOTHYROXINE SODIUM) 150 Mcg Tablet, 1 TAB PO DAILY for THYROID SUPPLEMENT LAST DOSE GIVEN: DATE: TODAY TIME: AM NEXT DOSE DUE: DATE: TOMORROW TIME: AM 04/11/16 Esomeprazole Magnesium (NEXIUM CAPSULE) 40 Mg Capsule.dr, 1 CAP PO DAILY for HEARTBURN / GAS LAST DOSE GIVEN: DATE: TIME: AM NEXT DOSE DUE: DATE: TOMORROW TIME: AM 04/11/16 Clopidogrel Bisulfate (CLOPIDOGREL) 75 Mg Tablet, 1 TAB PO HS for PREVENT BLOOD CLOTS LAST DOSE GIVEN: DATE: YESTERDAY TIME: BEDTIME NEXT DOSE DUE: DATE: TODAY TIME: BEDTIME 04/11/16 Mirtazapine (MIRTAZAPINE) 30 Mg Tablet, 1 TAB PO QHS for DEPRESSION LAST DOSE GIVEN: DATE: YESTERDAY TIME: AT BEDTIME NEXT DOSE DUE: DATE: TODAY TIME: AT BEDTIME 04/11/16 Lidocaine (LIDODERM) 700 Mg Adh..patch, 1 PATCH TP HS for PAIN PATCH LAST DOSE GIVEN: DATE: YESTERDAY TIME: AT BEDTIME NEXT DOSE DUE: DATE: TODAY TIME: AT BEDTIME 10/27/14 Lorazepam (LORAZEPAM) 0.5 Mg Tablet, 0.5 MG PO QID for ANXIETY LAST DOSE GIVEN: DATE: TODAY TIME: AM NEXT DOSE DUE: DATE: TODAY TIME: AFTERNOON 10/27/14 Buspirone Hcl (BUSPIRONE HCL) 15 Mg Tablet, 15 MG PO TID for ANXIETY LAST DOSE GIVEN: DATE: TIME: AM NEXT DOSE DUE: DATE: TODAY TIME: PM 10/27/14 Discontinued Reported Medications Hydralazine Hcl (HYDRALAZINE HCL) 25 Mg Tablet, 1 TAB PO BID for HTN, #60 TAB 5 Refills 03/10/19 Diltiazem Hcl (CARTIA XT) 180 Mg Cap.er.24h, 1 CAP PO DAILY for A-fib for 30 Days, #30 CAP 0 Refills 03/10/19 Duloxetine Hcl (CYMBALTA) 60 Mg Capsule.dr, 60 MG PO BID PRN for Depression, CAP 03/10/19 Esomeprazole Magnesium (NEXIUM CAPSULE) 40 Mg Capsule.dr, 1 CAP PO DAILY PRN for GI SYMPTOMS, #30 CAP 5 Refills 03/10/19 Metformin Hcl (METFORMIN HCL) 500 Mg Tablet, 500 MG PO BIDWMEALS for HIGH BLOOD SUGAR LAST DOSE GIVEN: DATE: TODAY TIME: AT BREAKFAST NEXT DOSE DUE: DATE: TODAY TIME: AT DINNER 10/27/14 ASHLEY HENRIQUEZ MD Mar 14, 2019 11:27
--- NOTE | 2019-03-14 12:06 | NUR ---
NURSING NOTES: PATIENT DISCHARGED TO HOME WITH HOME HEALTH SERVICES. ALL PATIENT BELONGINGS SENT HOME WITH PATIENT. PATIENT GIVEN DISCHARGE INSTRUCTIONS WITH VOICED UNDERSTANDING.
--- NOTE | 2019-03-14 21:00 | DS ---
DATE OF DISCHARGE: 03/14/2019 HOSPITAL COURSE: The patient is a 74-year-old female patient who was admitted with shortness of breath, cough and fever. Her lab work showed that she was also hyponatremic with a serum sodium of 123 mEq. Her white cell count was 12,000 and therefore, the patient was admitted and treated for community-acquired pneumonia, treated with IV Levaquin and Rocephin. She was put also on fluid restriction about 1500 mL and her white cell count came down steadily. She has been afebrile throughout her stay and white cell count has dropped down to 8000. Her serum sodium has steadily improved from 123 up to 133 and as the patient is asymptomatic and sticking to her fluid restriction, a decision was made to discharge her home to continue with fluid restriction, continue with oral Levaquin. She will be discharged home with home health so that her electrolytes will be monitored as an outpatient and results will be called to Dr. Fabian. PHYSICAL EXAMINATION: GENERAL: When I examined her this morning, she was resting flat, sleeping comfortably in bed, in no apparent respiratory distress, slightly pale, but no jaundice, cyanosis or thyromegaly. No jugular venous distention. No limb edema. VITAL SIGNS: Her heart rate was 70, blood pressure was 116/68, temperature was 97.9, respiratory rate was 18 and oxygen saturation was 96% on room air. HEAD, EYES, EARS, NOSE AND THROAT: Showed normocephalic, atraumatic. NECK: Supple. HEART: Showed normal first and second heart sounds. No gallop or murmur. CHEST: Clear to auscultation. No crepitation or rhonchi. ABDOMEN: Distended, soft, nontender. NEUROLOGIC: She was awake, alert, responding appropriately. All cranial nerves intact. She moves extremities without difficulty. She ambulates with a walker. Her intake over the last 24 hours was 985, output was recorded. LABORATORY DATA: Her lab work this morning showed a white cell count of 8000, hemoglobin 10.5, hematocrit 31, MCV 93, and platelet count 287,000. Her chemistry this morning showed a serum sodium 133, potassium 4.8, chloride 98, bicarbonate 27, anion gap of 8, BUN 17, creatinine 1.1. Estimated GFR was 48 mL per minute. Her glucose was 129, calcium was 8.4. Her D-dimer was high at 0.81and urinalysis was essentially unremarkable. She did have a CT angio, which was negative for acute pulmonary embolism; however, she has patchy bilateral lower lobe predominant infiltrate on possibly right upper lobe, finding could represent atypical edema or pneumonia. The patient clinically does not seem to be in heart failure. DISCHARGE MEDICATIONS: She was discharged home with home health to continue on levofloxacin 750 mg every other day and was given 4 tablets to be taken on 03/15, 03/17, 03/19 and 03/21. She was also given a prescription for hydralazine 25 mg 3 times a day. Looking at her medications, Cymbalta is probably the culprit for her syndrome of inappropriate ADH and we emphasized the need for fluid restriction to about 1500 mL. This seems to be working. I emphasized that the restriction does not only include water, but any milk or juice she drinks or soda pop. She should continue on her aspirin 81 mg once a day, atorvastatin calcium 20 mg at bedtime, bifidobacterium infantis and Align 4 mg daily. She is on buspirone 50 mg three times a day, carbidopa/levodopa 25/100 three tablets 3 times a day with meals. She is on cholecalciferol for vitamin D3 1000 International Units once a day, clonidine 0.1 mg every 6 hours p.r.n. for high blood pressure, Plavix 75 mg once a day, diltiazem 180 mg once a day, Aricept 10 mg at bedtime, duloxetine 60 mg twice a day, Nexium 40 mg once a day, ferrous sulfate 142 mg once a day, gabapentin 300 mg 3 times a day, glipizide 5 mg daily, levothyroxine sodium 150 mcg once a day, Lidoderm patch 1 patch topically at bedtime, lisinopril 20 mg once a day, lorazepam 0.5 mg 4 times a day, magnesium oxide 400 mg daily, melatonin 10 mg at bedtime, meloxicam 7.5 mg daily, Robaxin 750 mg 3 times a day, metoclopramide 10 mg 3 times a day with meals, mirtazapine 30 mg at bedtime, Nystatin powder applied topically twice a day, oxycodone extended release 3 times a day, potassium chloride 10 mEq once a day, Mysoline 50 mg at bedtime, psyllium husk 0.52 g p.o. b.i.d., Requip 1 mg 3 times a day, vitamin E 100 units once a day and Ambien 5 mg at bedtime. FINAL DISCHARGE DIAGNOSES: 1. Community-acquired pneumonia. 2. 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 She has multiple other medical problems including hypertension, hyperlipidemia, type 2 diabetes, Parkinson's disease, and hypothyroidism. ASHLEY HENRIQUEZ MD DR: SANGEETA/richard JOB#: [id number] / [id number]
[2019-03-17] MEDS ORDERED: cloNIDine TTS-2 1 PATCH PATCH TD SCH (09:00)
== END 2019-03-14 12:09 | disposition home health service (06) | DRG 643 ==
LOC: 1 SOUTH 15:14
PROVIDERS: ADMIT Family Medicine; ATTEND Internal Medicine
DX: E22.2 Syndrome of inappropriate secretion of antidiuretic hormone (principal); J18.8 Other pneumonia, unspecified organism; R65.10 Systemic inflammatory response syndrome (SIRS) of non-infectious origin without acute organ dysfunction; E44.0 Moderate protein-calorie malnutrition; E03.9 Hypothyroidism, unspecified; E11.9 Type 2 diabetes mellitus without complications; E78.5 Hyperlipidemia, unspecified; G20 Parkinson's disease; I10 Essential (primary) hypertension; Z88.2 Allergy status to sulfonamides; Z88.8 Allergy status to other drugs, medicaments and biological substances; Z79.899 Other long term (current) drug therapy; Z68.32 Body mass index [BMI] 32.0-32.9, adult
CPT/HCPCS: 36415; 71046; 71275; 80048; 80053; 81001; 82436; 82947; 83605; 84133; 84145; 84300; 85007; 85025; 85379; J0696; J1956; J8597; Q9967; J7030

== ENCOUNTER 2019-04-08 11:53 | Emergency (ER) | payer MEDICARE ==
[~2019-04-08] VITALS: Ht 160 cm; Wt 118.0 kg
[~2019-04-08 11:53] MED LIST changes: +DILT180C64 PO; +GLIP5TAB10 PO; +HYDR-2868 PO; +LEVO750T31 PO; +PRIM50TA24 PO; +ROPI1TAB2 PO
[2019-04-08] MEDS ORDERED: IV NORMAL SALINE 1,000ML 1,000 ML IV SCH (12:05)
--- NOTE | 2019-04-08 12:15 | PHYS DOC ---
Past History Past Medical History: A-Fib, Anxiety, Arthritis, CAD, Constipation, COPD, CVA, Dementia, Depression, Diabetes, GERD, Heart Disease, Hypertension, Hypothyroid, Kidney Infection, OK, TIA, UTI, Other Past Surgical History: , Hysterectomy, Pacemaker, Other Smoking: Quit Greater Than 1 Year Alcohol Use: None Drug Use: None Adult General Chief Complaint Chief Complaint: NAUSEA/VOMITING/[facility] Patient is a 74-year-old female, with multiple prior medical problems, and several recent hospitalizations, per her daughter for pneumonia/hyponatremia and then a TIA, where she was hospitalized at [place], who presents to the emergency department for evaluation. The patient states that she began experiencing vomiting and diarrhea yesterday. She states that she vomited about 3 times in the past 24 hours, and had about 10 or 12 loose stools yesterday and 3 this morning. She took some Imodium with resultant improvement in her symptoms but felt weak, and went to her primary care doctor's office where she was found to have blood pressures in the 80s over 40s. She was thus sent to the emergency department. She denies any new pain currently, other than her chronic low back pain, and states that she had some nasal congestion and maybe a low-grade fever yesterday along with myalgias, and does have a mild cough, but does not have the symptoms today. She denies any chest pain, shortness of breath, or abdominal pain. Denies dizziness or lightheadedness, other than "when my blood pressure gets low". Her daughter states that she has had labile blood pressures recently. There are no alleviating or exacerbating factors to her symptoms. Relevant notes from the patient's recent hospital stay have been reviewed. Review of Systems Review of Systems Constitutional: As per history of present illness[] Eyes: Denies change in visual acuity, redness, or eye pain [] HENT: Denies current nasal congestion or sore throat [] Respiratory: Denies pleuritic pain or shortness of breath [] Cardiovascular: The patient denies any shortness of breath, chest pain, palpitations, or orthopnea[] GI: No additional information not addressed in HPI [] : Denies dysuria or hematuria [] Musculoskeletal: Denies back pain or joint pain [] Integument: Denies rash or skin lesions [] Neurologic: Denies headache, focal weakness or sensory changes [] Endocrine: Denies polyuria or polydipsia [] All other systems were reviewed and found to be within normal limits, except as documented in this note. Current Medications Current Medications Current Medications Medications (Trade) Dose Ordered Sig/Harmeet Start Time Stop Time Status Last Admin Dose Admin Sodium Chloride 1,000 ml @ 100 mls/hr Q10H 04/08/19 12:05 04/08/19 22:04 UNV Allergies Allergies Allergies Coded Allergies Type Severity Reaction Last Updated Verified Sulfa (Sulfonamide Antibiotics) Allergy Intermediate Unknown 10/17/17 Yes dexamethasone Allergy Intermediate eye irritaion and swelling 10/17/17 Yes neomycin Allergy Intermediate eye irritaion and swelling 10/17/17 Yes polymyxin B Allergy Intermediate eye irritaion and swelling 10/17/17 Yes Physical Exam Physical Exam PHYSICAL EXAM: CONSTITUTIONAL: Well developed, well nourished HEAD: normocephalic, atraumatic EENT: PERRL, EOMI. Conjunctivae normal color, sclerae non-icteric; moist mucous membranes. NECK: Supple, non-tender; no meningismus. LUNGS: Lungs CTA, breathing even and unlabored. Normal air movement. HEART: Regular rate and rhythm, no murmur CHEST: No deformity; non-tender ABDOMEN: The abdomen is soft, and non-tender, no masses or bruits. EXTREM: Normal ROM; no deformity, no calf tenderness. Normal pulses palpable in all extremities. There is no pedal edema. SKIN: No rash; no diaphoresis NEURO: Alert; normal speech and cognition; CN's grossly intact; strength grossly intact without focal deficit. BACK: No CVA TTP. Current Patient Data Vital Signs Vital Signs Date Time Temp Pulse Resp B/P (MAP) Pulse Ox O2 Delivery O2 Flow Rate FiO2 04/08/19 12:00 97.5 65 18 98 Room Air Lab Results Laboratory Tests Test 04/08/19 12:23 04/08/19 13:42 White Blood Count 6.5 x10^3/uL Red Blood Count 3.77 x10^6/uL Hemoglobin 11.5 g/dL Hematocrit 35.9 % Mean Corpuscular Volume 95 fL Mean Corpuscular Hemoglobin 30 pg Mean Corpuscular Hemoglobin Concent 32 g/dL Red Cell Distribution Width 15.3 % Platelet Count 293 x10^3/uL Neutrophils (%) (Auto) 69 % Lymphocytes (%) (Auto) 22 % Monocytes (%) (Auto) 6 % Eosinophils (%) (Auto) 3 % Basophils (%) (Auto) 0 % Neutrophils # (Auto) 4.5 x10^3uL Lymphocytes # (Auto) 1.4 x10^3/uL Monocytes # (Auto) 0.4 x10^3/uL Eosinophils # (Auto) 0.2 x10^3/uL Basophils # (Auto) 0.0 x10^3/uL Sodium Level 134 mmol/L Potassium Level 4.7 mmol/L Chloride Level 98 mmol/L Carbon Dioxide Level 27 mmol/L Anion Gap 9 Blood Urea Nitrogen 35 mg/dL Creatinine 1.1 mg/dL Estimated GFR (Cockcroft-Gault) 48.7 BUN/Creatinine Ratio 32 Glucose Level 79 mg/dL Lactic Acid Level 1.3 mmol/L Calcium Level 8.5 mg/dL Magnesium Level 2.2 mg/dL Total Bilirubin 0.5 mg/dL Aspartate Amino Transf (AST/SGOT) 31 U/L Alanine Aminotransferase (ALT/SGPT) 16 U/L Alkaline Phosphatase 106 U/L Troponin I Quantitative < 0.017 ng/mL XF-Iif-Y-Type Natriuretic Peptide 396 pg/mL Total Protein 6.7 g/dL Albumin 3.1 g/dL Albumin/Globulin Ratio 0.9 Influenza Type A (Rapid) Negative Influenza Type B (Rapid) Negative Urine Collection Type Unknown Urine Color Yellow Urine Clarity Clear Urine pH 5.5 Urine Specific Cisco <=1.005 Urine Protein Neg Urine Glucose (UA) Neg mg/dL Urine Ketones (Stick) Neg mg/dL Urine Blood Neg Urine Nitrite Neg Urine Bilirubin Neg Urine Urobilinogen Dipstick 0.2 mg/dL Urine Leukocyte Esterase Neg Urine RBC 0 /HPF Urine WBC Rare /HPF Urine Squamous Epithelial Cells Few /LPF Urine Bacteria 0 /HPF Current Medications Medications (Trade) Dose Ordered Sig/Harmeet Route PRN Reason Start Time Stop Time Status Last Admin Dose Admin Sodium Chloride 1,000 ml @ 100 mls/hr Q10H IV 04/08/19 12:05 04/08/19 22:04 04/08/19 12:05 EKG EKG Atrial paced rhythm at a rate of 60 beats for minute, leftward axis, normal intervals, there are no acute ischemic ST/T changes.[] Radiology/Procedures Radiology/Procedures PROCEDURE: CHEST PA & LATERAL EXAM: Chest, 2 views. HISTORY: Cough. COMPARISON: 03/12/2019 FINDINGS: 2 views of the chest are obtained. There is stable bilateral central interstitial prominence. There is no consolidation, pleural effusion or pneumothorax. The heart is normal in size. There is a cardiac pacemaker with leads in expected position. IMPRESSION: Stable central interstitial prominence possibly due to recently demonstrated interstitial infiltrate. There is no consolidation.[] Course & Med Decision Making Course & Med Decision Making Pertinent Labs and Imaging studies reviewed. (See chart for details) []2:20 PM:Patient remains stable. I discussed test results, the need for close follow-up, and return precautions. I also discussed the case with the patient's PCP, who will follow up with the patient closely. The patient is feeling better at this time. She feels well enough to go home. She has remained normotensive. Dragon Disclaimer Dragon Disclaimer This electronic medical record was generated, in whole or in part, using a voice recognition dictation system. Departure Departure: Impression: Primary Impression: Nausea, vomiting and diarrhea Additional Impression: Dehydration Disposition: 01 HOME, SELF-CARE Condition: STABLE Referrals: DUY WISE MD (PCP) Patient Instructions: Dehydration, Adult, Diarrhea, Nausea and Vomiting Scripts Ondansetron (ONDANSETRON ODT) 4 Mg Tab.rapdis 1 TAB PO PRN Q6-8HRS for N/V, #15 TAB Prov: SHYANNE MORGAN MD 04/08/19 Problem Qualifiers SHYANNE MORGAN MD Apr 08, 2019 12:15
[2019-04-08 12:41] LABS: BASO % 0 % (0-3); EOS # 0.2 x10^3/uL (0.0-0.7); EOS % 3 % (0-3); HEMATOCRIT 35.9 % (36.0-47.0); HEMOGLOBIN 11.5 g/dL (12.0-15.5); LYMPH # 1.4 x10^3/uL (1.0-4.8); LYMPH % 22 % (24-48); MEAN CORPUSCULAR HEMOGLOBIN 30 pg (25-35); MEAN CORPUSCULAR HGB CONC 32 g/dL (31-37); MEAN CORPUSCULAR VOLUME 95 fL (79-100); MONO # 0.4 x10^3/uL (0.0-1.1); MONO % 6 % (0-9); NEUT # 4.5 x10^3uL (1.8-7.7); NEUT % 69 % (31-73); PLATELET COUNT 293 x10^3/uL (140-400); RED BLOOD COUNT 3.77 x10^6/uL (3.50-5.40); RED CELL DISTRIBUTION WIDTH 15.3 % (11.5-14.5); WHITE BLOOD COUNT 6.5 x10^3/uL (4.0-11.0)
[2019-04-08 12:57] LABS: INFLUENZA A PATIENT NEGATIVE (NEGATIVE); INFLUENZA B PATIENT NEGATIVE (NEGATIVE)
--- NOTE | 2019-04-08 12:59 | RAD ---
EXAM: Chest, 2 views. HISTORY: Cough. COMPARISON: 03/12/2019 FINDINGS: 2 views of the chest are obtained. There is stable bilateral central interstitial prominence. There is no consolidation, pleural effusion or pneumothorax. The heart is normal in size. There is a cardiac pacemaker with leads in expected position. IMPRESSION: Stable central interstitial prominence possibly due to recently demonstrated interstitial infiltrate. There is no consolidation. Electronically signed by: Alyssia Lora MD (04/08/2019 12:56 PM) [place] [id number]
[2019-04-08 13:03] LABS: ALBUMIN 3.1 g/dL (3.4-5.0); ALBUMIN/GLOBULIN RATIO 0.9 (1.0-1.7); CALCIUM 8.5 mg/dL (8.5-10.1); CREATININE 1.1 mg/dL (0.6-1.0); GFR 48.7; MAGNESIUM 2.2 mg/dL (1.8-2.4); TOTAL BILIRUBIN 0.5 mg/dL (0.2-1.0); TOTAL PROTEIN 6.7 g/dL (6.4-8.2)
[2019-04-08 13:05] LABS: POTASSIUM 4.7 mmol/L (3.5-5.1)
[2019-04-08 14:12] LABS: BACTERIA,URINE 0 /HPF (0-FEW); BILIRUBIN,URINE NEG (NEG); CLARITY,URINE CLEAR; COLOR,URINE YELLOW; GLUCOSE,URINE NEG (NEG); NITRITE,URINE NEG (NEG); RBC,URINE 0 /HPF (0-2); SQUAMOUS EPITHELIAL CELL,UR FEW /LPF; UROBILINOGEN,URINE 0.2 mg/dL (0.2 mg/dL); WBC,URINE RARE /HPF (0-4)
[2019-04-08] MEDS ORDERED: ONDA4TAB12 PO (14:22)
[2019-04-08 14:54] VITALS: BP 124/87
== END 2019-04-08 14:52 | disposition home or self-care (01) ==
LOC: ER 11:53
DX: E86.0 Dehydration (principal); G89.29 Other chronic pain; M54.5 Low back pain; I48.91 Unspecified atrial fibrillation; F41.9 Anxiety disorder, unspecified; I25.10 Atherosclerotic heart disease of native coronary artery without angina pectoris; J44.9 Chronic obstructive pulmonary disease, unspecified; F03.90 Unspecified dementia, unspecified severity, without behavioral disturbance, psychotic disturbance, mood disturbance, and anxiety; F32.9 Major depressive disorder, single episode, unspecified; E11.9 Type 2 diabetes mellitus without complications; I11.0 Hypertensive heart disease with heart failure; I25.2 Old myocardial infarction; Z86.73 Personal history of transient ischemic attack (TIA), and cerebral infarction without residual deficits; Z87.440 Personal history of urinary (tract) infections; Z95.0 Presence of cardiac pacemaker; Z98.890 Other specified postprocedural states; Z90.710 Acquired absence of both cervix and uterus; Z87.891 Personal history of nicotine dependence; Z88.2 Allergy status to sulfonamides; Z88.1 Allergy status to other antibiotic agents; Z88.8 Allergy status to other drugs, medicaments and biological substances
CPT/HCPCS: 36415; 71046; 80053; 81001; 83605; 83735; 83880; 84484; 85025; 87040; 87804; 96360; 96361; 99285-25; J7030

== ENCOUNTER 2019-06-16 16:06 | Inpatient (IN) | payer MEDICARE ==
[~2019-06-16] VITALS: Ht 160 cm; Wt 88.0 kg
[~2019-06-16 16:06] MED LIST changes: -GLIM2TAB3 PO; +GLIM2TAB7 PO; +ONDA4TAB12 PO; -ROPI1TAB2 PO; +ROPI1TAB4 PO
[2019-06-16 16:25] VITALS: BP 161/71
[2019-06-16] MEDS ORDERED: HYDR-2868 PO (17:19)
[2019-06-16] MEDS ORDERED: DILT180C64 PO (17:19)
[2019-06-16] MEDS ORDERED: CARV25TA2 PO (17:19)
[2019-06-16] MEDS ORDERED: BUDE10.2 IH (17:19)
[2019-06-16] MEDS ORDERED: LISI-334 PO (17:19)
[2019-06-16] MEDS ORDERED: DOCU100C28 PO (17:19)
--- NOTE | 2019-06-16 17:42 | EKG ---
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
[2019-06-16 17:49] LABS: BASO % 0 % (0-3); EOS # 0.1 x10^3/uL (0.0-0.7); EOS % 2 % (0-3); HEMATOCRIT 34.3 % (36.0-47.0); HEMOGLOBIN 10.9 g/dL (12.0-15.5); LYMPH # 1.6 x10^3/uL (1.0-4.8); LYMPH % 24 % (24-48); MEAN CORPUSCULAR HEMOGLOBIN 31 pg (25-35); MEAN CORPUSCULAR HGB CONC 32 g/dL (31-37); MEAN CORPUSCULAR VOLUME 97 fL (79-100); MONO # 0.5 x10^3/uL (0.0-1.1); MONO % 7 % (0-9); NEUT # 4.3 x10^3uL (1.8-7.7); NEUT % 66 % (31-73); PLATELET COUNT 283 x10^3/uL (140-400); RED BLOOD COUNT 3.55 x10^6/uL (3.50-5.40); RED CELL DISTRIBUTION WIDTH 15.3 % (11.5-14.5); WHITE BLOOD COUNT 6.5 x10^3/uL (4.0-11.0)
[2019-06-16 17:55] LABS: BARBITURATES NEG (NEG); BENZODIAZEPINES NEG (NEG); CANNABINOIDS NEG (NEG); COCAINE NEG (NEG); METHADONE NEG (NEG); OPIATES NEG (NEG); PHENCYCLIDINE NEG (NEG)
[2019-06-16 18:02] LABS: ALBUMIN 3.1 g/dL (3.4-5.0); CALCIUM 7.8 mg/dL (8.5-10.1); CREATININE 1.1 mg/dL (0.6-1.0); GFR 48.7; POTASSIUM 4.4 mmol/L (3.5-5.1); TOTAL BILIRUBIN 0.3 mg/dL (0.2-1.0); TOTAL PROTEIN 6.2 g/dL (6.4-8.2)
[2019-06-16 18:06] LABS: AMPHETAMINE/METHAMPHETAMINE NEG (NEG)
[2019-06-16] MEDS ORDERED: DOCUSATE SODIUM 100 MG CAPSULE PO PRN (18:30)
[2019-06-16] MEDS ORDERED: cloNIDine HCL 0.1 MG TABLET PO PRN (18:30)
--- NOTE | 2019-06-16 19:00 | RAD ---
CT brain without contrast. HISTORY: Slurred speech, confusion, lethargy CT scan of brain was done without contrast. Sinuses are clear. There is no skull fracture. There is motion artifact. There is no intracranial hemorrhage or subdural hematoma. There is atrophy. There is decreased density in the periventricular white matter from chronic microvascular changes. An acute CVA is not identified. There is no mass or shift of the midline. IMPRESSION: 1. Atrophy and chronic white matter changes. 2. No intracranial hemorrhage or acute CVA noted. RS Compliance Statement: One or more of the following individualized dose reduction techniques were utilized for this examination: 1. Automated exposure control 2. Adjustment of the mA and/or kV according to patient size 3. Use of iterative reconstruction technique Electronically signed by: Jamari Mims MD (06/16/2019 6:56 PM) [id number]
[2019-06-16 19:10] VITALS: BP 148/65
[2019-06-16] MEDS ORDERED: rOPINIRole 1 MG TABLET. PO SCH (21:00)
[2019-06-16] MEDS: PRIMIDONE 50 MG TABLET PO SCH (21:00)
[2019-06-16] MEDS ORDERED: LORazepam 0.5 MG TABLET PO SCH (21:00)
[2019-06-16] MEDS ORDERED: NON FORMULARY ITEM (Budesonide/Formoterol Fumarate (Symbicort 160-4.5 Mcg Inhaler) 2 PUFF) IH SCH (21:00)
[2019-06-16] MEDS ORDERED: busPIRone 15 MG TABLET. PO SCH (21:00)
[2019-06-16] MEDS: LIDOCAINE (700MG/PATCH) PATCH. TP SCH (21:00)
[2019-06-16] MEDS: ALBUTEROL SULFATE 2.5 MG/3 ML NEBU. NEB SCH (21:06)
[2019-06-16] MEDS: BUDESONIDE 0.5 MG/2 ML NEBU NEB SCH (21:07)
[2019-06-16] MEDS: oxyCODONE ER 10 MG TAB.ER.12H PO SCH (21:49)
[2019-06-16] MEDS: LISINOPRIL 20 MG TABLET PO SCH (21:49)
[2019-06-16] MEDS: PSYLLIUM SEED (WITH SUGAR) PACKET. PO SCH (21:49)
[2019-06-16] MEDS: CLOPIDOGREL BISULFATE 75 MG TABLET PO SCH (21:49)
[2019-06-16] MEDS: ATORVASTATIN CALCIUM 20 MG TABLET PO SCH (21:50)
[2019-06-16] MEDS: CARBIDOPA/LEVODOPA 25/100MG TABLET PO SCH (21:50)
[2019-06-16] MEDS: MELATONIN 3 MG TABLET PO SCH (21:50)
[2019-06-16] MEDS: MIRTAZAPINE 30 MG TABLET PO SCH (21:50)
[2019-06-16] MEDS: NYSTATIN TOPICAL POWDER 15GM BOTTLE. TP SCH (21:51)
[2019-06-16] MEDS: ZOLPIDEM 5 MG TABLET. PO SCH (21:51)
[2019-06-16] MEDS: DULoxetine HCL 60 MG CAPSULE.DR PO SCH (21:51)
[2019-06-16] MEDS: GABAPENTIN 300 MG CAPSULE. PO SCH (21:51)
[2019-06-16 22:50] VITALS: BP 137/74
[2019-06-17] VITALS (11 sets, daily range): BP systolic 112–196; BP diastolic 58–94
[2019-06-17] MEDS ORDERED: POTASSIUM CHLORIDE 10 MEQ TABLET.ER. PO SCH ×3 (00:30→21:00)
--- NOTE | 2019-06-17 02:28 | EKG ---
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
--- NOTE | 2019-06-17 02:32 | RAD ---
CHEST PA LATERAL History: Shortness of breath Comparison: Two-view chest April 08, 2019. Findings: There are dorsal column stimulator leads terminating in the midthoracic spine, new from prior study. There is right chest dual-chamber pacer. The cardiomediastinal silhouette is stable. Central pulmonary vasculature is prominent but stable. The lungs are clear. No pleural effusion or pneumothorax is seen. There is no acute bone abnormality. IMPRESSION: No acute cardiopulmonary process. Electronically signed by: Simon Morgan MD (06/17/2019 2:29 AM) [id number]
[2019-06-17] MEDS: CARBIDOPA/LEVODOPA 25/100MG TABLET PO SCH ×9 (03:00→23:47)
[2019-06-17] MEDS: ALBUTEROL SULFATE 2.5 MG/3 ML NEBU. NEB SCH ×4 (05:39→20:00)
[2019-06-17] MEDS: LEVOTHYROXINE 150 MCG TABLET PO SCH (05:53)
--- NOTE | 2019-06-17 06:10 | CONS ---
DATE OF CONSULTATION: 06/16/2019 NEUROLOGICAL CONSULTATION REFERRING PHYSICIAN: Dr. Fabian. REASON FOR CONSULTATION: Rule out TIA. HISTORY OF PRESENT ILLNESS: This is a 74-year-old right-handed female who was admitted directly from her primary care physician's office after she presented with new onset of generalized weakness, more common on the right side, difficulty to speak and confusion. The symptoms lasted approximately 4 hours before it resolved. The patient denies headaches, visual disturbances, nausea, vomiting, chest pain, shortness of breath or palpitation. She also complains of intermittent tremor of the upper extremity and she related that to senile tremor and Parkinson's disease. Initial nonenhanced head CT scan revealed generalized atrophy and chronic small vessel ischemic changes without acute intracranial process. The patient was referred by her primary care physician to go directly to be admitted at [facility] because of poorly controlled hypertension. PAST MEDICAL HISTORY: Quite extensive, includes Parkinson disease, senile tremor, cataracts, multiple strokes and TIA resulted in right hemiparesis -- improved, peripheral neuropathy, coronary artery disease status post myocardial infarction, status post pacemaker placement, hypertension, hyperlipidemia, COPD, sleep apnea, diverticulitis, chronic lower back pain, required spinal column stimulator implant, osteoarthritis, hypothyroidism, factor V deficiency, depressions and anxiety, tardive dyskinesia, PAST SURGICAL HISTORY: Significant for coronary stent placement, obstructive bowel surgery, tubal ligation, hysterectomy, , cataract removal. ALLERGIES: SULFA DRUGS, DEXAMETHASONE, NEOMYCIN, AND POLYMYXIN B. SOCIAL HISTORY: The patient lives with her daughter. She denies smoking, alcohol drinking, or illicit drug use. FAMILY HISTORY: Father had liver cancer and hypertension. Mother had blindness. CURRENT HOME MEDICATIONS: Pantoprazole, diltiazem, aspirin, ropinirole, lorazepam, buspirone, ferrous sulfate, carvedilol, hydralazine, glipizide, levothyroxine, oxycodone, Ambien, primidone, melatonin, lisinopril, lidocaine patches, gabapentin, Cymbalta, Plavix, Lipitor, Pulmicort inhaler, albuterol inhaler, clonidine, carbidopa-levodopa. PHYSICAL EXAMINATION: GENERAL: A well-developed, well-nourished female, not in acute distress. She weighs 89 kilos. VITAL SIGNS: Blood pressure 148/65, respiratory rate 20, pulse is 62 and regular, temperature 97.9, oxygen saturation is 100% on room air. HEENT: Normocephalic, atraumatic, otherwise unremarkable. NECK: Supple. Negative for carotid bruit, lymphadenopathy or thyromegaly. LUNGS: Clear to A and P. CARDIOVASCULAR: Regular rate and rhythm. Normal S1, S2. ABDOMEN: Soft. Bowel sounds positive. EXTREMITIES: Negative for cyanosis, clubbing or pedal edema. NEUROLOGICAL EXAM: Mental Status: The patient is alert and oriented x 3. Speech is fluent. There is no language dysfunction. Memory, judgment, and abstracting thinking are fair. The patient denies hallucination or delusion. Cranial Nerves: Visual robbins are full. The pupils are reactive to light and accommodation. The extraocular movements are intact. There is no nystagmus. There is no facial motor or sensory deficit. Hearing appears to be diminished bilaterally. The palate is elevated symmetrically. Sternocleidomastoid muscles are powerful bilaterally. The patient shrugs her shoulders symmetrically, protrudes her tongue in the midline without fasciculation or atrophy. Motor: No focal muscle bulk was seen. The tone is normal. The strength is 4/5 in the right upper and lower extremities. The strength elsewhere was 5/5 throughout. Sensory examination revealed normal pinprick, light touch, and vibratory and position senses. Deep tendon reflexes were asymmetric and hypoactive with absent Achilles responses. Gait not tested. The patient has resting, postural and kinetic tremors of both upper extremities. LABORATORY DATA: CBC revealed white blood cells of 6.5 thousand, hemoglobin 10.9, hematocrit is 34.3, platelet count 283,000. Chemistry revealed sodium of 139, potassium 4.4, chloride 104, CO2 of 28, BUN 22, creatinine 1.1, glucose 103, calcium 7.8. Troponin level is 0.073. Coagulation: D-dimer is high at 1.13. Urine drug screen is negative. IMPRESSION: 1. Hypertension with episode of slurred speech, difficulty to walk and intermittent confusion, lasted for hours, rule out transient ischemic attack. 2. Multiple medical problems include Parkinson disease, senile tremor, hypertension, hyperlipidemia, coronary artery disease, insomnia, depressions, anxiety, factor V deficiency, chronic obstructive pulmonary disease. RECOMMENDATIONS: 1. We will obtain a carotid Doppler study. 2. We will continue with current home medications. 3. Physical therapy evaluation. M Roc DOMINGO MD DR: SILVER/richard JOB#: [id number] / [id number]
[2019-06-17] MEDS ORDERED: hydrALAZINE 25 MG TABLET PO SCH (08:00)
[2019-06-17] MEDS ORDERED: rOPINIRole 0.5 MG TABLET. PO SCH (08:00)
[2019-06-17] MEDS: BUDESONIDE 0.5 MG/2 ML NEBU NEB SCH ×3 (08:00→20:00)
[2019-06-17] MEDS: LORazepam 0.5 MG TABLET PO SCH ×3 (08:33→17:34)
[2019-06-17] MEDS: CARVEDILOL 12.5 MG TABLET PO SCH ×2 (08:34→17:34)
[2019-06-17] MEDS: LISINOPRIL 20 MG TABLET PO SCH ×2 (08:34→21:43)
[2019-06-17] MEDS: GABAPENTIN 300 MG CAPSULE. PO SCH ×3 (08:35→21:42)
[2019-06-17] MEDS: ASPIRIN 81 MG TAB.CHEW PO SCH (08:35)
[2019-06-17] MEDS: FERROUS SULFATE 325 MG TABLET. PO SCH (08:35)
[2019-06-17] MEDS: oxyCODONE ER 10 MG TAB.ER.12H PO SCH ×3 (08:35→21:41)
[2019-06-17] MEDS: busPIRone 15 MG TABLET. PO SCH ×3 (08:35→17:34)
[2019-06-17] MEDS: DULoxetine HCL 60 MG CAPSULE.DR PO SCH ×2 (08:35→21:39)
[2019-06-17] MEDS: MAGNESIUM OXIDE 400 MG TABLET PO SCH (08:36)
[2019-06-17] MEDS: glipiZIDE 5 MG TABLET PO SCH (08:36)
[2019-06-17] MEDS: PSYLLIUM SEED (WITH SUGAR) PACKET. PO SCH ×2 (08:36→21:00)
[2019-06-17] MEDS: PANTOPRAZOLE 40 MG TABLET. PO SCH (08:36)
[2019-06-17] MEDS: NYSTATIN TOPICAL POWDER 15GM BOTTLE. TP SCH ×2 (08:37→21:44)
[2019-06-17] MEDS: hydrALAZINE 25 MG TABLET PO SCH ×3 (09:00→17:33)
--- NOTE | 2019-06-17 09:32 | PN ---
DATE: SUBJECTIVE: The patient stated she could not sleep last night because of leg cramps. Her blood pressure has been high. She denies headaches, visual disturbances, chest pain, shortness of breath or palpitation. OBJECTIVE: GENERAL: A well-developed, well-nourished female, not in acute distress. VITAL SIGNS: Blood pressure 183/81, respiratory rate 18, pulse is 61 and regular, oxygen saturation is 95% on room air, temperature 97.4. HEENT: Normocephalic, atraumatic, otherwise unremarkable. NECK: Supple. Negative for carotid bruit, lymphadenopathy or thyromegaly. LUNGS: Clear to A and P. CARDIOVASCULAR: Regular rate and rhythm, normal S1, S2. ABDOMEN: Soft. Bowel sounds positive. EXTREMITIES: Negative for cyanosis, clubbing or edema. NEUROLOGICAL EXAM: Mental Status: The patient is alert and oriented x 3. Speech is fluent. There is no language dysfunction. Cranial nerves are intact. Motor examination, no focal muscle bulk was seen. The strength was 4/5 in the right upper and lower extremities and 5/5 throughout. Sensory examination revealed normal pinprick and light touch senses throughout. Deep tendon reflexes were symmetric and hypoactive with absent Achilles responses. Gait not tested. LABORATORY DATA: Not tested. IMPRESSION: 1. Questionable transient ischemic attack. 2. Night cramps. 3. Poorly controlled hypertension. 4. Multiple medical problems include hypertension, hyperlipidemia, coronary artery disease, Parkinson disease, senile tremor, depression, anxiety, factor V deficiency and clotting disorder and chronic obstructive pulmonary disease. RECOMMENDATION: 1. Await for carotid Doppler study. 2. Cardiology consult is appreciated. For night cramps, patient can have additional ropinirole 1 mg at bedtime. 3. Physical therapy evaluation. M Roc DOMINGO MD DR: SILVER/richard JOB#: [id number] / [id number]
[2019-06-17] MEDS ORDERED: IOHEXOL 350 MG/ML 100 ML VIAL. IV ONE (10:30)
--- NOTE | 2019-06-17 11:11 | PDOC2 ---
CARDIAC CONSULT DATE OF CONSULT Date Of Consult DATE: 06/17/19 TIME: 11:03 REASON FOR CONSULT Reason for Consult Elevated troponin REFERRING PHYSICIAN Referring Physician Dr. Fabian SOURCE Source: Chart review, Patient HPI History of Present Illness This is a 74 yo female who presented secondary to dizziness, weakness, and dysar thria. Patient reports that she has been following closely with PCP due to uncontrolled blood pressures. Was seen in the office twice last week and blood pressure was elevated significantly both times. The day of arrival, began having slurred speach, dizziness, head pressure, and bilateral arm weakness. Arms felt heavy. Thought she was having another TIA/stroke so she called PCP who direct admitted her to the hospital. Symptoms resolved after 5 hours. Blood pressure currently significantly elevated and is beginning to have pressure in the head again. Denies any chest pain, palpitations, dizziness, diaphoresis, SOA or nausea/vomiting. Reports compliance with meds. PAST MEDICAL HISTORY Past Medical History Cardiovascular: AFIB (?), CAD, HTN, Hyperlipidemia, Valve insufficiency (MR), Other (cardiomyopathy) Pulmonary: COPD, Pneumonia CENTRAL NERVOUS SYSTEM: CVA, Seizure, TIA, Other (Parkinsons) GI: Constipation Heme/Onc: Other (Factor V leiden) Musculoskeletal: low back pain, Osteoarthritis Rheumatologic: No pertinent hx Infectious disease: No pertinent hx ENT: Other (cataract; glaucoma) Renal/: UTI Endocrine: Hypothyroidism PAST SURGICAL HISTORY Past Surgical History Pacemaker, Cataract Removal, (x3), Hernia Repair, Total knee replacement (bilateral), Tonsillectomy, Hysterectomy, Colectomy (chinmay), Other (nasal septum repair; PCI/stent 2015; bladder surgery; bilateral eye surgery, capal tunnel release; back surgery) FAMILY HISTORY Family History: Heart Disease SOCIAL HISTORY Social History Smoke: No ALCOHOL: none Drugs: None Lives: with Family CURRENT MEDICATIONS Current Medications Current Medications Aspirin (Children'S Aspirin) 81 mg DAILY PO Last administered on 06/17/19at 08:35; Start 06/17/19 at 09:00 Atorvastatin Calcium (Lipitor) 20 mg HS PO Last administered on 06/16/19at 21:50; Start 06/16/19 at 21:00 Buspirone HCl (Buspar) 15 mg TID PO ; Start 06/16/19 at 21:00; Stop 06/17/19 at 00:20; Status DC Carbidopa/Levodopa (Sinemet 25/100) 3 tab Q3HRS PO Last administered on 06/17/19 08:34; Start 06/16/19 at 21:00 Clonidine HCl (Catapres) 0.1 mg PRN Q6HRS PRN PO hypertension Last administered on 06/17/19at 03:00; Start 06/16/19 at 18:30; Stop 06/17/19 at 09:03; Status DC Clopidogrel Bisulfate (Plavix) 75 mg HS PO Last administered on 06/16/19at 21:49; Start 06/16/19 at 21:00 Diltiazem HCl (Cardizem 24hr Cd) 180 mg DAILY PO Last administered on 06/17/19 08:36; Start 06/17/19 at 09:00 Docusate Sodium (Colace) 100 mg PRN BID PRN PO CONSTIPATION Last administered on 06/17/19at 08:36; Start 06/16/19 at 18:30 Duloxetine HCl (Cymbalta) 60 mg BID PO Last administered on 06/17/19 08:35; Start 06/16/19 at 21:00 Gabapentin (Neurontin) 300 mg TID PO Last administered on 06/17/19 08:35; Start 06/16/19 at 21:00 Glipizide (Glucotrol) 5 mg DAILYAC PO Last administered on 06/17/19 08:36; Start 06/17/19 at 07:30 Hydralazine HCl (Apresoline) 25 mg BIDWMEALS PO Last administered on 06/17/19at 08:33; Start 06/17/19 at 08:00; Stop 06/17/19 at 09:03; Status DC Levothyroxine Sodium (Synthroid) 150 mcg DAILY06 PO Last administered on 06/17/19at 05:53; Start 06/17/19 at 06:00 Lidocaine (Lidoderm) 1 patch HS TP ; Start 06/16/19 at 21:00 Lisinopril (Prinivil) 20 mg BID PO Last administered on 06/17/19 08:34; Start 06/16/19 at 21:00 Lorazepam (Ativan) 0.5 mg TID PO ; Start 06/16/19 at 21:00; Stop 06/17/19 at 00:20; Status DC Melatonin (Melatonin) 9 mg HS PO Last administered on 06/16/19at 21:50; Start 06/16/19 at 21:00 Mirtazapine (Remeron) 30 mg QHS PO Last administered on 06/16/19at 21:50; Start 06/16/19 at 21:00 Nystatin (Nystop) 1 nithin BID TP Last administered on 06/17/19at 08:37; Start 06/16/19 at 21:00 Primidone (Mysoline) 100 mg HS PO ; Start 06/16/19 at 21:00 Ropinirole HCl (Requip) 1 mg TID PO ; Start 06/16/19 at 21:00; Stop 06/17/19 at 00:20; Status DC Zolpidem Tartrate (Ambien) 5 mg QHS PO Last administered on 06/16/19at 21:51; Start 06/16/19 at 21:00 Non-Formulary Medication (Budesonide/ Formoterol Fumarate (Symbicort 160-4.5 Mcg Inhaler)) 2 puff BID IH ; Start 06/16/19 at 21:00; Status UNV Carvedilol (Coreg) 25 mg BIDWMEALS PO Last administered on 06/17/19at 08:34; Start 06/17/19 at 08:00 Pantoprazole Sodium (Protonix) 40 mg DAILY PO Last administered on 06/17/19at 08:36; Start 06/17/19 at 09:00 Ferrous Sulfate (Feosol) 325 mg DAILYWBKFT PO Last administered on 06/17/19at 08:35; Start 06/17/19 at 08:00 Magnesium Oxide (Magnesium Oxide) 400 mg DAILY PO Last administered on 06/17/19at 08:36; Start 06/17/19 at 09:00 Oxycodone HCl (OxyCONTIN) 10 mg TID PO Last administered on 06/17/19at 08:35; Start 06/16/19 at 21:00 Potassium Chloride (Klor-Con) 10 meq DAILYWBKFT PO ; Start 06/17/19 at 08:00; Stop 06/17/19 at 00:20; Status DC Psyllium Hydrophilic Mucilloid (Metamucil) 1 pkt BID PO Last administered on 06/16/19at 21:49; Start 06/16/19 at 21:00 Albuterol Sulfate (Ventolin) 2.5 mg RTQID NEB Last administered on 06/16/19at 21:06; Start 06/16/19 at 20:00 Budesonide (Pulmicort) 0.5 mg RTBID NEB Last administered on 06/16/19at 21:07; Start 06/16/19 at 20:00 Buspirone HCl (Buspar) 15 mg TIDWMEALS PO Last administered on 06/17/19at 08:35; Start 06/17/19 at 08:00 Lorazepam (Ativan) 0.5 mg TIDWMEALS PO Last administered on 06/17/19at 08:33; Start 06/17/19 at 08:00 Potassium Chloride (Klor-Con) 10 meq DAILYWSUP PO Last administered on 06/17/19at 00:46; Start 06/17/19 at 00:30; Stop 06/17/19 at 00:50; Status DC Ropinirole HCl (Requip) 1 mg TIDWMEALS PO Last administered on 06/17/19at 08:35; Start 06/17/19 at 08:00; Stop 06/17/19 at 10:02; Status DC Potassium Chloride (Klor-Con) 10 meq HS PO ; Start 06/17/19 at 21:00 Clonidine HCl (Catapres) 0.1 mg BID PO ; Start 06/17/19 at 21:00 Hydralazine HCl (Apresoline) 50 mg TIDWMEALS PO ; Start 06/17/19 at 09:00 Ropinirole HCl (Requip) 2 mg TIDWMEALS PO ; Start 06/17/19 at 12:00 Iohexol (Omnipaque 350 Mg/ml) 100 ml 1X ONCE IV ; Start 06/17/19 at 10:30; Stop 06/17/19 at 10:35; Status DC Active Scripts Active Clonidine Hcl 0.1 Mg Tablet 1 Tab PO Q6HRS PRN if systolic BP >160 take one clonidine Nystatin 15 Gm Powder 1 Nithin TP BID Apply to groin area Reported Symbicort 160-4.5 Mcg Inhaler (Budesonide/Formoterol Fumarate) 10.2 Gm Hfa.aer.ad 2 Puff IH BID Carvedilol 25 Mg Tablet 25 Mg PO BIDWMEALS Docusate Sodium 100 Mg Capsule 1 Cap PO BID PRN Cartia Xt (Diltiazem Hcl) 180 Mg Cap.er.24h 1 Cap PO DAILY Lisinopril 20 Mg Tablet 1 Tab PO BID Hydralazine Hcl 25 Mg Tablet 1 Tab PO BIDWMEALS Ropinirole Hcl 1 Mg Tablet 1 Mg PO TID LAST DOSE GIVEN: DATE: TIME: AM NEXT DOSE DUE: DATE: TIME: AFTERNOON Glipizide 5 Mg Tablet 1 Tab PO DAILY LAST DOSE GIVEN: DATE: TODAY TIME: AM NEXT DOSE DUE: DATE: TOMORROW TIME: AM Mysoline (Primidone) 50 Mg Tablet 100 Mg PO HS LAST DOSE GIVEN: DATE: YESTER TIME: BEDTIME NEXT DOSE DUE: DATE: TIME: BEDTIME Potassium Chloride 10 Meq Tablet.er 10 Meq PO DAILY LAST DOSE GIVEN: DATE: TIME: AM NEXT DOSE DUE: DATE: ORR TIME: AM Robaxin-750 (Methocarbamol) 750 Mg Tablet 1 Tab PO TID LAST DOSE GIVEN: DATE: TIME: AM NEXT DOSE DUE: DATE: TODAY TIME: AFTERNOON Atorvastatin Calcium 20 Mg Tablet 1 Tab PO HS LAST DOSE GIVEN: DATE: TIME: AM NEXT DOSE DUE: DATE: ORR TIME: AM Meloxicam 7.5 Mg Tablet 7.5 Mg PO DAILY LAST DOSE GIVEN: DATE: TIME: AM NEXT DOSE DUE: DATE: ORROW TIME: AM Gabapentin (Gabapentin) 300 Mg Capsule 300 Mg PO TID LAST DOSE GIVEN: DATE: TIME: AM NEXT DOSE DUE: DATE: TIME: AFTERNOON Fiber (Psyllium Husk) 0.52 Gm Capsule 0.52 Gm PO BID LAST DOSE GIVEN: DATE: TODAY TIME: AM NEXT DOSE DUE: DATE: TODAY TIME: PM Aspirin 81 Mg Tab.chew 81 Mg PO DAILY LAST DOSE GIVEN: DATE: TIME: AM NEXT DOSE DUE: DATE: TOMORR TIME: AM Align (Bifidobacterium Infantis) 4 Mg Capsule 4 Mg PO DAILY LAST DOSE GIVEN: DATE:TODAY TIME:MORNING NEXT DOSE DUE: DATE:TOMORR TIME:MORNING Aricept (Donepezil Hcl) 10 Mg Tablet 10 Mg PO HS LAST DOSE GIVEN: DATE:YESTER TIME:BEDTIME NEXT DOSE DUE: DATE:TODAY TIME:BEDTIME Cymbalta (Duloxetine Hcl) 60 Mg Capsule.dr 60 Mg PO BID LAST DOSE GIVEN: DATE: TIME:MORNING NEXT DOSE DUE: DATE: TIME:BEDTIME Oxycodone Hcl Extend.release (Oxycodone Hcl) 10 Mg Tablet 1 Tab PO TID LAST DOSE GIVEN: DATE: TIME: AM NEXT DOSE DUE: DATE: TIME: PM Sinemet 25-100 Mg Tablet (Carbidopa/Levodopa) 1 Each Tablet 3 Tab PO Q3HRS LAST DOSE GIVEN: DATE: TIME: AM NEXT DOSE DUE: DATE: TIME: AFTERNOON Zolpidem Tartrate 5 Mg Tablet 1 Tab PO QHS LAST DOSE GIVEN: DATE: YESTER TIME: AT BEDTIME NEXT DOSE DUE: DATE: TIME: AT BEDTIME Magnesium Oxide 400 Mg Tablet 1 Tab PO DAILY LAST DOSE GIVEN: DATE: TIME: AM NEXT DOSE DUE: DATE: TIME: PM Slow Fe (Ferrous Sulfate) 142 Mg Tablet.er 142 Mg PO DAILY LAST DOSE GIVEN: DATE: TIME: AM NEXT DOSE DUE: DATE: TIME: AM Vitamin E 100 Unit Capsule 400 Unit PO DAILY LAST DOSE GIVEN: DATE: TIME: AM NEXT DOSE DUE: DATE: TIME: AM Vitamin D3 (Cholecalciferol (Vitamin D3)) 1,000 Unit Tablet 1 Tab PO DAILY LAST DOSE GIVEN: DATE: TIME: AM NEXT DOSE DUE: DATE: TIME: AM Melatonin 3 Mg Tablet 10 Mg PO HS LAST DOSE GIVEN: DATE: YES TIME: AT BEDTIME NEXT DOSE DUE: DATE: TIME: AT BEDTIME Levothyroxine Sodium 150 Mcg Tablet 1 Tab PO DAILY LAST DOSE GIVEN: DATE: TIME: AM NEXT DOSE DUE: DATE: ORR TIME: AM Nexium Capsule (Esomeprazole Magnesium) 40 Mg Capsule.dr 1 Cap PO DAILY LAST DOSE GIVEN: DATE: TIME: AM NEXT DOSE DUE: DATE: TOMORR TIME: AM Clopidogrel (Clopidogrel Bisulfate) 75 Mg Tablet 1 Tab PO HS LAST DOSE GIVEN: DATE: YESTER TIME: BEDTIME NEXT DOSE DUE: DATE: TIME: BEDTIME Mirtazapine 30 Mg Tablet 1 Tab PO QHS LAST DOSE GIVEN: DATE: YES TIME: AT BEDTIME NEXT DOSE DUE: DATE: TIME: AT BEDTIME Lidoderm (Lidocaine) 700 Mg Adh..patch 1 Patch TP HS LAST DOSE GIVEN: DATE: YESTERDAY TIME: AT BEDTIME NEXT DOSE DUE: DATE: TODAY TIME: AT BEDTIME Lorazepam 0.5 Mg Tablet 0.5 Mg PO TID LAST DOSE GIVEN: DATE: TIME: AM NEXT DOSE DUE: DATE: TODAY TIME: AFTERNOON Buspirone Hcl 15 Mg Tablet 15 Mg PO TID LAST DOSE GIVEN: DATE: TIME: AM NEXT DOSE DUE: DATE: TODAY TIME: PM ALLERGIES Allergies: Coded Allergies: Sulfa (Sulfonamide Antibiotics) (Verified Allergy, Intermediate, Unknown, 10/17/17) dexamethasone (Verified Allergy, Intermediate, eye irritaion and swelling, 10/17/17) neomycin (Verified Allergy, Intermediate, eye irritaion and swelling, 10/17/17) polymyxin B (Verified Allergy, Intermediate, eye irritaion and swelling, 10/17/17) ROS Review of Systems 14 point ROS conducted with pertinent positives noted above in HPI PHYSICAL EXAM Physical Exam General: Alert, Oriented X3, Cooperative, No acute distress HEENT: Atraumatic, Mucous membr. moist/pink Lungs: Clear to auscultation, Other (diminished bases) Heart: Regular rate, Normal S1, Normal S2 Abdomen: Soft, No tenderness Extremities: No edema, Normal pulses Skin: No rashes, No breakdown Neuro: Normal speech, Sensation intact Psych/Mental Status: Mental status NL, Mood NL MUSCULOSKELETAL: Osteoarthritic changes both hands VITALS Vital Signs Vital Signs Date Time Temp Pulse Resp B/P (MAP) Pulse Ox O2 Delivery O2 Flow Rate FiO2 06/17/19 10:17 98.6 62 20 156/71 (99) 98 Room Air LABS LABS Laboratory Tests Test 06/16/19 16:20 06/16/19 17:16 06/16/19 17:35 06/16/19 19:27 Urine Opiates Screen Neg (NEG) Urine Methadone Screen Neg (NEG) Urine Barbiturates Neg (NEG) Urine Phencyclidine Screen Neg (NEG) Urine Amphetamine/Methamphetamine Neg (NEG) Urine Benzodiazepines Screen Neg (NEG) Urine Cocaine Screen Neg (NEG) Urine Cannabinoids Screen Neg (NEG) Urine Ethyl Alcohol Neg (NEG) Glucose (Fingerstick) 93 mg/dL (70-99) 157 mg/dL (70-99) White Blood Count 6.5 x10^3/uL (4.0-11.0) Red Blood Count 3.55 x10^6/uL (3.50-5.40) Hemoglobin 10.9 g/dL (12.0-15.5) Hematocrit 34.3 % (36.0-47.0) Mean Corpuscular Volume 97 fL (79-100) Mean Corpuscular Hemoglobin 31 pg (25-35) Mean Corpuscular Hemoglobin Concent 32 g/dL (31-37) Red Cell Distribution Width 15.3 % (11.5-14.5) Platelet Count 283 x10^3/uL (140-400) Neutrophils (%) (Auto) 66 % (31-73) Lymphocytes (%) (Auto) 24 % (24-48) Monocytes (%) (Auto) 7 % (0-9) Eosinophils (%) (Auto) 2 % (0-3) Basophils (%) (Auto) 0 % (0-3) Neutrophils # (Auto) 4.3 x10^3uL (1.8-7.7) Lymphocytes # (Auto) 1.6 x10^3/uL (1.0-4.8) Monocytes # (Auto) 0.5 x10^3/uL (0.0-1.1) Eosinophils # (Auto) 0.1 x10^3/uL (0.0-0.7) Basophils # (Auto) 0.0 x10^3/uL (0.0-0.2) D-Dimer (Gladys) 1.13 mg/L (0.00-0.50) Sodium Level 139 mmol/L (136-145) Potassium Level 4.4 mmol/L (3.5-5.1) Chloride Level 104 mmol/L (98-107) Carbon Dioxide Level 28 mmol/L (21-32) Anion Gap 7 (6-14) Blood Urea Nitrogen 22 mg/dL (7-20) Creatinine 1.1 mg/dL (0.6-1.0) Estimated GFR (Cockcroft-Gault) 48.7 BUN/Creatinine Ratio 20 (6-20) Glucose Level 103 mg/dL (70-99) Calcium Level 7.8 mg/dL (8.5-10.1) Total Bilirubin 0.3 mg/dL (0.2-1.0) Aspartate Amino Transf (AST/SGOT) 22 U/L (15-37) Alanine Aminotransferase (ALT/SGPT) 12 U/L (14-59) Alkaline Phosphatase 118 U/L (46-116) Creatine Kinase 164 U/L (26-192) Troponin I Quantitative 0.073 ng/mL (0-0.055) Total Protein 6.2 g/dL (6.4-8.2) Albumin 3.1 g/dL (3.4-5.0) Albumin/Globulin Ratio 1.0 (1.0-1.7) Test 06/16/19 23:50 06/17/19 05:56 06/17/19 10:13 Troponin I Quantitative 0.075 ng/mL (0-0.055) 0.071 ng/mL (0-0.055) 0.064 ng/mL (0-0.055) Magnesium Level 2.0 mg/dL (1.8-2.4) ECHOCARDIOGRAM Echocardiogram <Conclusion> The left ventricular systolic function is normal and the ejection fraction is within normal range. The Ejection Fraction is >55%. There is normal LV segmental wall motion. There is a pacemaker in the RV/RA. Doppler and Color Flow revealed trace to mild tricuspid regurgitation with an estimated PAP of 36 mmHg. DATE: 08/13/18 1614 <Conclusion> The left ventricular systolic function is normal. The Ejection Fraction is 60%. There is normal LV segmental wall motion. Transmitral Doppler flow pattern is Grade I-abnormal relaxation pattern. Trace mitral regurgitation. Trace tricuspid regurgitation with an estimated PAP of 40 mmHg. There is no evidence of significant pericardial effusion. DATE: 09/27/18 1125 HEART CATH Heart Cath Coronaries: The left main is normal. The LAD has mild diffuse plaquing in the 20-40% range. The circumflex is a nondominant vessel that is normal. The RCA is normal but the posterolateral branch is 100% occluded at the ostium. The PDA is normal. Ventriculogram: The left ventricular ejection fraction was estimated to be about 50%. There was no gradient across the aortic valve and the left ventricular end-diastolic pressure was 14 mmHg. After this was evaluated I decided to proceed to try to open the posterolateral branch of the RCA. The patient was fully heparinized and then I engage the ostium of the RCA with a guiding catheter. A guidewire was advanced all the way to the bifurcation of the PDA and the posterolateral branch and we then enter the posterolateral branch were able to cross the occlusion a 2.0 mm balloon was then advanced and a PTCA of the posterolateral branch ostium was then done after which the balloon was removed and a view of the vessel was done. There is still significant residual disease present but there was now flow into the posterolateral branch which appeared to be actually larger than it was initially thought and he gives off a 3 different branches. I then brought a 2.5 mm x 12 mm drug-eluting stent over the guidewire and he was placed in the proximal segment of the posterolateral branch the stent was then deployed and multiple high-pressure inflations were then done. After which the balloon was removed and a view was then done. The previously dilated area is appeared to be well open now there was now very good flow all the way to the distal portion of the posterolateral branch there was no significant residual disease present there did appear to be some thrombus distally therefore the patient was started on a bolus and a drip of Integrilin in addition to the heparin. The patient was now free of chest pains so I decided to terminate the procedure at this time. DICTATED and SIGNED BY: EVANS RIVERA MD DATE: 05/08/15 6784 ASSESSMENT/PLAN Assessment/Plan 1. Dizziness, weakness, dysarthria; ? TIA. Resolved 2. Accelerated hypertension; remains elevated 3. Mild troponin elevated; peak 0.075. Most probably type II, demand ischemia secondary to above 4. CAD s/p PCI/stent to PLB. clinically stable. Echo 09/22 with preserved LV systolic function as noted above. 5. Hypertensive encephalopathy 6. Hyperlipidemia; statin 7. PAFIB: maintaining SR 8. SSS s/p PPM ([facility]) 9. H/o CVA/Parkinson's 10. Elevated d-dimer 11. TONYA s/p left renal artery stenting 12. Factor V deficiency Recommendations Agree with addition of hydralazine If blood pressure remains elevated, consider converting Coreg to Labetalol ASA for stroke prevention, deemed poor candidate for intermediate accountant anticoagulation due to high fall risk Cardizem for rate control Secondary prevention measures; continue statin, Plavix Echo to assess LV systolic function- daughter requesting Labetalol, hydralazine IV PRN Supportive care CARMELITA BOLTON APRN Jun 17, 2019 11:11
[2019-06-17] MEDS ORDERED: LABETALOL 20 MG/4 ML DISP.SYRIN. IVP PRN (11:45)
[2019-06-17] MEDS: rOPINIRole 0.5 MG TABLET. PO SCH ×2 (11:48→17:32)
[2019-06-17] MEDS: hydrALAZINE 20 MG/ML VIAL. IV PRN (11:50)
--- NOTE | 2019-06-17 12:36 | EKG ---
[address] [address] Test Date: 2019-06-17 Test Time: 11:39:43 Pat Name: SALVATORE OLIVAREZ Department: Room: 113 A Gender: F Claim Manager: : [id number] Requested By: DUY WISE Order Number: [id number] Reading MD: Measurements Intervals [place] Rate: 60 P: 0 [place]: 212 QRS: -12 QRSD: 96 T: -5 QT: 414 QTc: 418 Interpretive Statements SINUS RHYTHM LEFTWARD AXIS T ABNORMALITY IN INFERIOR LEADS ABNORMAL ECG RI6.02 No previous ECG available for comparison
--- NOTE | 2019-06-17 15:24 | RAD ---
Carotid doppler ultrasound History: TIA symptoms Multiple grayscale, color, and duplex spectral analysis waveform sonographic images were acquired of the carotid, subclavian, and vertebral arteries. Comparison: None Findings: RIGHT: PSV cm/sec EDV cm/sec Common carotid artery 56 13 Maximal internal carotid artery 179 37 External carotid artery 77 Vertebral artery 62 ICA/CCA ratio 3.2 LEFT: PSV cm/sec EDV cm/sec Common carotid artery 62 12 Maximum internal carotid artery 98 24 External carotid artery 94 Vertebral artery 39 ICA/CCA ratio 1.6 Velocities used to determine stenosis are known to correlate with NASCET angiographic criteria. There is antegrade flow in the bilateral vertebral arteries. There is plaque of the distal right common carotid artery and proximal right internal carotid artery, may be component of soft plaque. There is mild eccentric hyperechoic plaque of the left internal carotid artery. Impression: 1. There is velocity and ratio elevation of the right internal carotid artery suggestive of 50-69% luminal diameter reduction. Electronically signed by: Toy Thomas MD (06/17/2019 3:16 PM) [id number]
--- NOTE | 2019-06-17 15:48 | RAD ---
CTA OF THE CHEST WITH AND WITHOUT CONTRAST Clinical indications: Shortness of breath and positive d-dimer. Technique: Noncontrast axial localizer was performed. After IV infusion of 75 cc of Omnipaque 350, helical CT scanning of the chest was performed using the CT pulmonary embolism protocol. A coronal MIP reconstruction was generated. PQRS compliance Statement One or more of the following individualized dose reduction techniques were utilized for this study: 1. Automated exposure control 2. Adjustment of the mA and/or kV according to patient size 3. Use of iterative reconstruction technique Comparison: March 12, 2019. Findings: No pulmonary embolism is evident. No focal aneurysmal dilatation of the thoracic aorta is seen. Mild cardiomegaly is seen. Calcified atheromatous disease of the coronary arteries is seen. No pericardial effusion is seen. No enlarged thoracic lymphadenopathy is evident. No pleural effusion or pneumothorax is seen. Calcified granuloma of the superior segment of the right lower lobe is seen. Mild groundglass lung infiltrate is seen within the superior segment of the left lower lobe. This has improved. The other lower lobe lung infiltrates bilaterally seen previously have resolved. The right upper lobe lung infiltrate seen previously has resolved. No new lung infiltrate is seen. The proximal bronchial tree is patent. No lytic process is seen. The adrenal glands are not completely seen in this study. IMPRESSION: No pulmonary embolism. Resolution of bilateral lung infiltrates since the previous study. There is a small residual groundglass lung infiltrate within the superior segment of the left lower lobe. This infiltrate has improved as well. No new abnormality. Mild cardiomegaly. Calcified atheromatous disease of the coronary arteries. Electronically signed by: Melvin Terrazas MD (06/17/2019 3:45 PM) [facility]
--- NOTE | 2019-06-17 17:25 | RAD ---
Limited abdomen ultrasound study Clinical indications: Left lower back swelling post neurostimulator insertion 3 weeks ago. FINDINGS: Sonography of the left lower back was performed. This demonstrates fluid collection medial and inferior to the stimulator measuring 4.3 cm longitudinally and 1.3 cm in thickness and 1.7 m transversely. No abnormal color Doppler flow is seen within it or around it. In addition, fluid is seen around the stimulator lead as well. IMPRESSION: Complex fluid collection is seen inferior medial to the stimulator. This may represent a postprocedure hematoma or complex abscess if there are clinical findings of infection. Electronically signed by: Melvin Terrazas MD (06/17/2019 5:22 PM) [facility]
[2019-06-17] MEDS: LIDOCAINE (700MG/PATCH) PATCH. TP SCH (21:00)
[2019-06-17] MEDS: PRIMIDONE 50 MG TABLET PO SCH (21:00)
[2019-06-17] MEDS: ZOLPIDEM 5 MG TABLET. PO SCH (21:37)
[2019-06-17] MEDS: cloNIDine HCL 0.1 MG TABLET PO SCH (21:40)
[2019-06-17] MEDS: MIRTAZAPINE 30 MG TABLET PO SCH (21:40)
[2019-06-17] MEDS: ATORVASTATIN CALCIUM 20 MG TABLET PO SCH (21:40)
[2019-06-17] MEDS: CLOPIDOGREL BISULFATE 75 MG TABLET PO SCH (21:40)
[2019-06-17] MEDS: MELATONIN 3 MG TABLET PO SCH (21:42)
[2019-06-18] MEDS: CARBIDOPA/LEVODOPA 25/100MG TABLET PO SCH ×5 (03:00→14:48)
--- NOTE | 2019-06-18 03:16 | PN ---
DATE: 06/17/2019 SUBJECTIVE: The patient is having still labile hypertension. The patient is resting fairly comfortably. No chest pain. Elevated troponins have been reviewed by Cardiology and they made timely suggestions there, also to control her blood pressure in a more hopefully somewhat even manner. The patient otherwise seems to be resting fairly comfortably. She denies chest pain, does have a lot of swelling over a recent implant of a pain stimulator to her left gluteal area. We are trying to get an ultrasound of that area to rule out any possible abscess or the like, but there was a complex fluid collection in the inferior medial stimulator, possible abscess, but with her vital signs stable, it is probably a fluid collection more than an abscess since her white count is 6500. OBJECTIVE: VITAL SIGNS: Remain stable, blood pressure 175/70, respiratory rate 18, pulse 60, afebrile. GENERAL: Otherwise, alert, baseline. LUNGS: Clear. CARDIOVASCULAR: Regular sinus rhythm. ABDOMEN: Soft, nontender. Marked swelling to the left gluteal area. EXTREMITIES: No clubbing, cyanosis, nor edema. NEUROLOGIC: Intact. IMPRESSION: Labile hypertension, elevated troponin, probably secondary to the elevated hypertension, lightheadedness, coronary artery disease, hypertensive encephalopathy, hyperlipidemia ____ statins, paroxysmal atrial fibrillation, sick sinus syndrome with pacemaker, [facility], cerebrovascular accident, Parkinson's disease, elevated D-dimer, left renal artery stenting, factor V deficiency. PLAN: The patient continued to be monitored carefully and possibly transfer for this buildup of fluid around her neurostimulator. DUY WISE MD DR: GERSON/richard JOB#: [id number] / [id number]
[2019-06-18] MEDS: hydrALAZINE 20 MG/ML VIAL. IV PRN (04:44)
[2019-06-18] MEDS: ALBUTEROL SULFATE 2.5 MG/3 ML NEBU. NEB SCH ×3 (04:49→16:16)
[2019-06-18 05:32] VITALS: BP 142/60
[2019-06-18] MEDS: LEVOTHYROXINE 150 MCG TABLET PO SCH (06:13)
[2019-06-18 06:17] VITALS: BP 163/61
[2019-06-18] MEDS: busPIRone 15 MG TABLET. PO SCH ×2 (08:15→12:13)
[2019-06-18] MEDS: rOPINIRole 0.5 MG TABLET. PO SCH ×2 (08:15→12:13)
[2019-06-18] MEDS: LORazepam 0.5 MG TABLET PO SCH ×2 (08:15→12:13)
[2019-06-18] MEDS: hydrALAZINE 25 MG TABLET PO SCH ×2 (08:19→12:16)
[2019-06-18] MEDS: FERROUS SULFATE 325 MG TABLET. PO SCH (08:19)
[2019-06-18] MEDS: MAGNESIUM OXIDE 400 MG TABLET PO SCH (08:19)
[2019-06-18] MEDS: glipiZIDE 5 MG TABLET PO SCH (08:19)
[2019-06-18] MEDS: PANTOPRAZOLE 40 MG TABLET. PO SCH (08:20)
[2019-06-18] MEDS: cloNIDine HCL 0.1 MG TABLET PO SCH (08:20)
[2019-06-18] MEDS: ASPIRIN 81 MG TAB.CHEW PO SCH (08:21)
[2019-06-18] MEDS: GABAPENTIN 300 MG CAPSULE. PO SCH ×2 (08:21→14:48)
[2019-06-18] MEDS: CARVEDILOL 12.5 MG TABLET PO SCH (08:21)
[2019-06-18] MEDS: LISINOPRIL 20 MG TABLET PO SCH (08:21)
[2019-06-18] MEDS: oxyCODONE ER 10 MG TAB.ER.12H PO SCH ×2 (08:22→14:48)
[2019-06-18] MEDS: DULoxetine HCL 60 MG CAPSULE.DR PO SCH (08:22)
[2019-06-18] MEDS: PSYLLIUM SEED (WITH SUGAR) PACKET. PO SCH (08:23)
[2019-06-18] MEDS: NYSTATIN TOPICAL POWDER 15GM BOTTLE. TP SCH (09:00)
[2019-06-18 10:21] VITALS: BP 132/70
--- NOTE | 2019-06-18 10:22 | PN ---
DATE: PROGRESS NOTE SUBJECTIVE: The patient continued to complain of lower back pain. OBJECTIVE: GENERAL: Well-developed, well-nourished female, not in acute distress. VITAL SIGNS: Blood pressure 173/67, respiratory rate 16, pulse is 67 and regular, and temperature is afebrile. HEENT: Normocephalic, atraumatic, otherwise unremarkable. NECK: Supple. Negative for carotid bruit, lymphadenopathy, or thyromegaly. LUNGS: Clear to A and P. CARDIOVASCULAR: Regular rate and rhythm with normal S1, S2. There is no S3, S4 or murmur. ABDOMEN: Soft. Bowel sounds positive. EXTREMITIES: Negative for cyanosis, clubbing or edema. NEUROLOGICAL EXAM: Mental Status: The patient is alert and oriented x 3. Speech is fluent. There is no language dysfunction. Cranial nerves are intact. Motor examination: No focal muscle bulk was seen. The tone is normal. The strength is 4/5 in the right upper and lower extremities. The strength elsewhere was 5/5 throughout. The patient has mild resting tremor of the hands. The tone is normal. Sensory examination revealed normal pinprick and light touch senses throughout. Deep tendon reflexes were symmetric and hypoactive with absent Achilles responses. Gait not tested. DIAGNOSTIC DATA: Ultrasound of the abdomen revealed evidence of complex fluid collections inferior to the stimulator with questionable of post-procedure hematoma versus abscess. Carotid Doppler study revealed stenosis of the right internal carotid artery, estimated by 50-69%. Echocardiogram result is pending. IMPRESSION: 1. Chronic lower back pain with current exacerbation, probably due to fluid collection inferior to the stimulator versus abscess. 2. Questionable transient ischemic attack, no recurrence. 3. Poorly controlled hypertension, hyperlipidemia, coronary artery disease, Parkinson disease, senile tremor, depressions, anxiety, factor 5 deficiency, and chronic obstructive pulmonary disease. RECOMMENDATIONS: 1. Continue with current management initiated by Dr. Fabian. 2. The patient will be transferred to [facility] under the service of Dr. Pickens to manage the fluid collections around the stimulator. Otherwise, the patient is neurologically stable. M Roc DOMINGO MD DR: SILVER/richard JOB#: [id number] / [id number]
--- NOTE | 2019-06-18 13:21 | CARD ---
MR#: [id number] Date of Study: 06/18/2019 Ordering Physician: CARMELITA BOLTON, Referring Physician: CARMELITA BOLTON, Tech: Rebecca Bocanegra [facility] APPROVED REPORT EXAM: Two-dimensional and M-mode echocardiogram with Doppler and color Doppler. Other Information Quality : AverageHR: 68bpm Rhythm : NSRTechnically limited study due to body habitus. INDICATION Elevated Troponin 2D DIMENSIONS RVDd3.0 (2.9-3.5cm)IVSd1.4 (0.7-1.1cm) Aortic Root(2D)2.6 (2.0-3.7cm)LVDd4.9 (3.9-5.9cm) PWd1.2 (0.7-1.1cm)LVDs3.3 (2.5-4.0cm) FS (%) 32.8 %SV69.1 ml LVEF(%)61.1 (>50%) M-Mode DIMENSIONS Left Atrium(MM)5.14 (2.5-4.0cm)Aortic Root2.92 (2.2-3.7cm) Aortic Valve AoV Peak Justin.155.9cm/sAoV VTI36.6cm AO Peak GR.9.7mmHgAO Mean GR.5mmHg JAMIA (VTI)1.68cm2 Mitral Valve MV E Urpxkaci74.1cm/sMV DECEL CNAZ253cm MV A Gclwisve082.3cm/sE/A Ratio0.9 MV A Vdizepos961ba Tricuspid Valve TR P. Jdztvkpn037xr/sRAP BFAMLETB2caEy TR Peak Gr.28djNnSAPX91zrMv LEFT VENTRICLE The left ventricle is normal size. There is mild concentric left ventricular hypertrophy. The left ve ntricular systolic function is normal and the ejection fraction is within normal range. The Ejection Fraction is 60-65%. There is normal LV segmental wall motion. Transmitral Doppler flow pattern is Gra de II-pseudonormal filling dynamics. RIGHT VENTRICLE The right ventricle is normal size. There is normal right ventricular wall thickness. The right ventr icular systolic function is normal. There is a pacemaker lead noted in the RA/RV ATRIA The left atrium is moderately dilated. The right atrium is mildly dilated. The interatrial septum is intact with no evidence for an atrial septal defect or patent foramen ovale as noted on 2-D or Dopple r imaging. AORTIC VALVE The aortic valve is trileaflet. The aortic valve is mildly calcified. Doppler and Color Flow revealed no significant aortic regurgitation. There is no significant aortic valvular stenosis. MITRAL VALVE Mitral annular calcification is mild. There is no evidence of mitral valve prolapse. There is no mitr al valve stenosis. Doppler and Color-flow revealed trace to mild mitral regurgitation. TRICUSPID VALVE Not well visualized. Doppler and Color Flow revealed trace to mild tricuspid regurgitation. The PA pr essure was estimated at 32 mmHg. There is no tricuspid valve prolapse or vegetation. There is no tric uspid valve stenosis. PULMONIC VALVE Doppler and Color Flow revealed no pulmonic valvular regurgitation. There is no pulmonic valvular kalina nosis. GREAT VESSELS The aortic root is normal in size. The ascending aorta is normal in size. The IVC is normal in size a nd collapses >50% with inspiration. PERICARDIAL EFFUSION There is no evidence of significant pericardial effusion. Critical Notification Critical Value: No <Conclusion> The left ventricular systolic function is normal and the ejection fraction is within normal range. Th e Ejection Fraction is 60-65%. There is normal LV segmental wall motion. There is a pacemaker lead noted in the RA/RV Technically difficult study Signed by : Jose Fontanez, Electronically Approved : 06/18/2019 10:59:47
--- NOTE | 2019-06-18 13:26 | PN ---
DATE: 06/18/2019 SUBJECTIVE: A 74-year-old female in with labile hypertension. The patient's blood pressure is being assessed and monitored carefully by Cardiology as well. She does have this swelling over her implantable pain stimulator and the patient shows a complex fluid collection, seen inferior medial to the stimulator. They did not know if it was a hematoma or possibly a complex abscess and we will continue to monitor. We are trying to get her transferred back to Dr. Pickens down over at [facility] for him to assess that. Blood pressure 132/70, respiratory rate 20, pulse 60, afebrile. Apparently, they are on diversion. In any case, the patient did have some elevated troponins, but probably related to her hypertension, which Cardiology is helping us try to evaluate there. PHYSICAL EXAMINATION: GENERAL: The patient is alert and oriented. LUNGS: Clear. CARDIOVASCULAR: Stable. ABDOMEN: Soft. EXTREMITIES: The patient has marked tenderness to the area of the surgery in that area. We will continue to monitor on that. IMPRESSION: Labile hypertension, possible transient ischemic attack, cardiomegaly, possible abscess to recent surgical procedure site, type 2 diabetes, elevated troponin levels, mild protein malnutrition. PLAN: Continue to monitor. Hopefully, ready for transfer later today. DUY WISE MD DR: GERSON/richard JOB#: [id number] / [id number]
[2019-06-18 14:50] VITALS: BP 143/71
== END 2019-06-18 17:30 | disposition short-term general hospital (02) | DRG 78 ==
LOC: 1 SOUTH 16:06
PROVIDERS: ADMIT Family Medicine; ATTEND Family Medicine
DX: I67.4 Hypertensive encephalopathy (principal); G45.9 Transient cerebral ischemic attack, unspecified; I16.1 Hypertensive emergency; D68.2 Hereditary deficiency of other clotting factors; G81.91 Hemiplegia, unspecified affecting right dominant side; I42.9 Cardiomyopathy, unspecified; E44.1 Mild protein-calorie malnutrition; G20 Parkinson's disease; Z96.653 Presence of artificial knee joint, bilateral; E78.5 Hyperlipidemia, unspecified; I25.10 Atherosclerotic heart disease of native coronary artery without angina pectoris; F32.9 Major depressive disorder, single episode, unspecified; F41.9 Anxiety disorder, unspecified; G47.00 Insomnia, unspecified; E03.9 Hypothyroidism, unspecified; I49.5 Sick sinus syndrome; G89.29 Other chronic pain; I48.0 Paroxysmal atrial fibrillation; E11.22 Type 2 diabetes mellitus with diabetic chronic kidney disease; N18.3 Chronic kidney disease, stage 3 (moderate); E11.9 Type 2 diabetes mellitus without complications; I12.9 Hypertensive chronic kidney disease with stage 1 through stage 4 chronic kidney disease, or unspecified chronic kidney disease; J44.9 Chronic obstructive pulmonary disease, unspecified; H40.9 Unspecified glaucoma; E11.42 Type 2 diabetes mellitus with diabetic polyneuropathy; Z95.0 Presence of cardiac pacemaker; Z95.5 Presence of coronary angioplasty implant and graft; Z86.73 Personal history of transient ischemic attack (TIA), and cerebral infarction without residual deficits; Z90.710 Acquired absence of both cervix and uterus; Z82.49 Family history of ischemic heart disease and other diseases of the circulatory system; Z82.1 Family history of blindness and visual loss; Z80.0 Family history of malignant neoplasm of digestive organs; Z88.8 Allergy status to other drugs, medicaments and biological substances; I25.2 Old myocardial infarction; Z68.34 Body mass index [BMI] 34.0-34.9, adult
CPT/HCPCS: 36415; 70450; 71046; 71275; 76705; 80053; 80061; 80307; 82550; 82947; 83735; 84484; 85025; 85379; 87086; 93005; 93306; 93880; 94640; J0360; J7613; J7626; Q9967

== ENCOUNTER 2019-07-19 15:31 | Emergency (ER) | payer MEDICARE ==
[~2019-07-19] VITALS: Ht 160 cm; Wt 88.0 kg
[~2019-07-19 15:31] MED LIST changes: +BUDE10.2 IH; +CARV25TA2 PO; +MELA3TAB4 PO; -MELA3TAB56 PO
[2019-07-19 16:36] VITALS: BP 144/68
--- NOTE | 2019-07-19 16:54 | PHYS DOC ---
Past History Past Medical History: A-Fib, Anxiety, Arthritis, CAD, Constipation, COPD, CVA, Dementia, Depression, Diabetes, GERD, Heart Disease, Hypertension, Hypothyroid, Kidney Infection, MA, TIA, UTI, Other Past Surgical History: , Hysterectomy, Pacemaker, Other Smoking: Quit Greater Than 1 Year Alcohol Use: None Drug Use: None Adult General Chief Complaint Chief Complaint: FOOT INJURY PAIN [facility] HPI Patient is a 74 year old female with history of diabetes on Plavix and aspirin who presents with complaint of injury to right foot. Patient states she d eveloped a glass bowl of chicken last night on right foot around 2200 and this morning had ecchymosis and edema and pain of right foot and was not able to bring rate. Patient complaining of numbness of second and third toes and denies other injuries and fever and chills. Patient rated her pain 6/10 and states she took Percocet 10 mg at 1400 that usually takes 3 times a day for her chronic back pain. Review of Systems Review of Systems Constitutional: Denies fever or chills [] Eyes: Denies change in visual acuity, redness, or eye pain [] HENT: Denies nasal congestion or sore throat [] Respiratory: Denies cough or shortness of breath [] Cardiovascular: No additional information not addressed in HPI [] GI: Denies abdominal pain, nausea, vomiting, bloody stools or diarrhea [] : Denies dysuria or hematuria [] Musculoskeletal: Denies back pain, reports joint pain [] Integument: Denies rash or skin lesions [] Neurologic: Denies headache, focal weakness or sensory changes [] Endocrine: Denies polyuria or polydipsia [] All other systems were reviewed and found to be within normal limits, except as documented in this note. Allergies Allergies Allergies Coded Allergies Type Severity Reaction Last Updated Verified Sulfa (Sulfonamide Antibiotics) Allergy Intermediate Unknown 10/17/17 Yes dexamethasone Allergy Intermediate eye irritaion and swelling 10/17/17 Yes neomycin Allergy Intermediate eye irritaion and swelling 10/17/17 Yes polymyxin B Allergy Intermediate eye irritaion and swelling 10/17/17 Yes Physical Exam Physical Exam Constitutional: Well developed, well nourished, mild distress, non-toxic appearance. [] HENT: Normocephalic, atraumatic. Eyes: PERRLA, EOMI, conjunctiva normal, no discharge. [] Neck: Normal range of motion, no tenderness, supple, no stridor. [] Cardiovascular:Heart rate regular rhythm, no murmur [] Lungs & Thorax: Bilateral breath sounds clear to auscultation [] Extremities: Right foot with large ecchymosis from post almost ankle with moderate edema without deformity, tenderness to metatarsal area, painful range of motion. Neurologic: Alert and oriented X 3, no focal deficits noted. [] Psychologic: Affect normal, judgement normal, mood normal. [] Current Patient Data Vital Signs Vital Signs Date Time Temp Pulse Resp B/P (MAP) Pulse Ox O2 Delivery O2 Flow Rate FiO2 07/19/19 16:36 63 18 144/68 (93 98 EKG EKG [] Radiology/Procedures Radiology/Procedures [address] [address] IMAGING REPORT Signed PATIENT: ASLVATORE OLIVAREZ ACCOUNT: [id number] : 1945 LOCATION: ER AGE: 74 SEX: F EXAM STATUS: PRE ER ORD. PHYSICIAN: MARIO BEE MD REASON: injury PROCEDURE: FOOT RIGHT 3V Three-view right foot HISTORY: Pain status post injury AP lateral oblique views There is multiple mild to moderate bunion deformity of the first metatarsal phalangeal joint. There is moderate degenerative changes of the mid foot with minimal marginal spurring and eburnation of the tarsal tarsal and tarsometatarsal joints. The visualized osseous structures otherwise appear grossly intact. There is no lytic destructive changes. IMPRESSION: No acute findings. Electronically signed by: Lanie Romero III, MD (07/19/2019 5:27 PM) [id number] DICTATED AND SIGNED BY: LANIE ROMERO III, MD DATE: 07/19/19 172 CC: DUY WISE MD; MARIO BEE MD ~ Course & Med Decision Making Course & Med Decision Making Pertinent Imaging studies reviewed. (See chart for details) Evaluation of patient in ER showed 73-year-old female patient with injury to right foot with large ecchymosis. X-ray was unremarkable. Chu wrap was applied and patient was advised to continue home Percocet and follow up with her primary care physician. I've spoken with the patient and/or caregivers. I've explained the patient's co ndition, diagnosis and treatment plan based on information available to me at this time. I've answered the patient's and/or caregivers questions and addressed any concerns. The patient and/or caregivers have a good understanding the patient's diagnosis, condition and treatment plan as can be expected at this point. Vital signs have been stabilized. The patient's condition is stable for discharge from the emergency department. The patient will pursue further outpatient evaluation with her primary care provider or other designated consulting physician as outlined in the discharge instructions. Patient and/or caregivers are agreeable to this plan of care and follow-up instructions have been explained in detail. The patient and/or caregivers have received these instructions in written format and expressed understanding of these discharge instructions. The patient and her caregivers are aware that if any significant change in condition or worsening of symptoms should prompt him to immediately return to this of the closest emergency department. If an emergent department is not readily available I would encourage him to call 911. Dragon Disclaimer Dragon Disclaimer This electronic medical record was generated, in whole or in part, using a voice recognition dictation system. Departure Departure: Impression: Primary Impression: Contusion of right foot Disposition: HOME, SELF-CARE (at 1740) Condition: STABLE Referrals: DUY WISE MD (PCP) Patient Instructions: Foot Contusion Additional Instructions: Apply ice on right foot Follow-up with your primary care physician in 3-5 days Return to ER if not getting better Continue home Percocet Problem Qualifiers Primary Impression: Contusion of right foot Encounter type: initial encounter Qualified Codes: S90.31XA - Contusion of right foot, initial encounter MARIO BEE MD Jul 19, 2019 16:54
--- NOTE | 2019-07-19 17:30 | RAD ---
Three-view right foot HISTORY: Pain status post injury AP lateral oblique views There is multiple mild to moderate bunion deformity of the first metatarsal phalangeal joint. There is moderate degenerative changes of the mid foot with minimal marginal spurring and eburnation of the tarsal tarsal and tarsometatarsal joints. The visualized osseous structures otherwise appear grossly intact. There is no lytic destructive changes. IMPRESSION: No acute findings. Electronically signed by: Marty Horton III, MD (07/19/2019 5:27 PM) [id number]
== END 2019-07-19 17:45 | disposition home or self-care (01) ==
LOC: ER 15:31
DX: S90.31XA Contusion of right foot, initial encounter (principal); I48.91 Unspecified atrial fibrillation; I25.10 Atherosclerotic heart disease of native coronary artery without angina pectoris; M19.90 Unspecified osteoarthritis, unspecified site; J44.9 Chronic obstructive pulmonary disease, unspecified; Z86.73 Personal history of transient ischemic attack (TIA), and cerebral infarction without residual deficits; F03.90 Unspecified dementia, unspecified severity, without behavioral disturbance, psychotic disturbance, mood disturbance, and anxiety; E11.9 Type 2 diabetes mellitus without complications; K21.9 Gastro-esophageal reflux disease without esophagitis; E03.9 Hypothyroidism, unspecified; I25.2 Old myocardial infarction; I11.9 Hypertensive heart disease without heart failure; Z87.891 Personal history of nicotine dependence; Z79.82 Long term (current) use of aspirin; Z79.01 Long term (current) use of anticoagulants; Z88.1 Allergy status to other antibiotic agents; Z88.8 Allergy status to other drugs, medicaments and biological substances; X58.XXXA Exposure to other specified factors, initial encounter; Y93.89 Activity, other specified; Y92.89 Other specified places as the place of occurrence of the external cause; Y99.8 Other external cause status
CPT/HCPCS: 73630; 99283